=== PATIENT | female | born 1950 | race Caucasian/White ===

== ENCOUNTER 2016-07-13 13:55 | Emergency (ER) | payer MEDICARE, OTHER ==
[2016-07-13] MEDS ORDERED: IPRATROPIUM-ALBUTEROL 3 ML NEB INHALATION STA (14:40)
--- NOTE | 2016-07-13 14:43 | ED ---
General Adult HPI - General Chief complaint: Upper Respiratory Infection Stated complaint: Cough/Sore Throat Time Seen by Provider: 07/13/16 14:26 Source: patient, RN notes reviewed Mode of arrival: ambulatory Limitations: no limitations - History of Present Illness Initial comments: This is a 65-year-old female presents with productive cough, otalgia, shortness of breath 4-5 days. Patient states she has been coughing productive of yellow green/brown sputum. Patient also complains of left-sided otalgia. Patient states she has COPD and her breathing has been worse than baseline over the last few days. Patient denies any fever/chills, nausea/vomiting/diarrhea. Patient has been taking her at home breathing treatments. Patient also complains of congestion and runny nose. Patient states that her lower right side back began hurting last night. Patient states she noticed this while she was laying down. Patient states the pain is constant and nothing makes the pain better or worse. Patient denies any known injury or trigger of this pain. Patient denies any burning with urination. Patient has a history of kidney stones. Patient denies any recent chest pain, abdominal pain, numbness, tingling, hematuria, headache, or visual changes, or any other complaints. - Related Data Home Medications Medication Instructions Recorded Confirmed Albuterol Inhaler [Ventolin Hfa 2 puff INHALATION RT-Q6H PRN 10/06/15 10/06/15 Inhaler] Albuterol Nebulized [Ventolin 2.5 mg INHALATION RT-Q6H PRN 10/06/15 10/06/15 Nebulized] Fluticasone/Salmeterol [Advair 1 puff INHALATION RT-BID 10/06/15 10/06/15 500-50 Diskus] Previous Rx's Medication Instructions Recorded Escitalopram [Lexapro] 10 mg PO DAILY #30 tab 09/19/14 Lisinopril [Zestril] 10 mg PO DAILY #30 tab 09/19/14 traZODone HCL [Desyrel] 50 mg PO HS #30 tab 09/19/14 Levofloxacin [Levaquin] 500 mg PO HS #7 tab 10/07/15 Omeprazole [PriLOSEC] 20 mg PO AC-BID #30 cap 10/07/15 Tiotropium Bland [Spiriva 2 puff IH DAILY #1 mist.inhal 10/07/15 Respimat] Albuterol Inhaler [Ventolin Hfa 1 - 2 puff INHALATION Q6HR #1 07/13/16 Inhaler] inhaler Azithromycin [Zithromax Z-pack] 250 mg PO DIRECTED #6 tab 07/13/16 Fluticasone/Salmeterol [Advair 1 inhalation PO BID 10 Days 07/13/16 250-50 Diskus] Allergies Allergy/AdvReac Type Severity Reaction Status Date / Time codeine AdvReac Unknown Verified 07/13/16 14:09 prednisone AdvReac Rash/Hives Verified 07/13/16 14:09 Review of Systems ROS Statement: Those systems with pertinent positive or pertinent negative responses have been documented in the HPI. ROS Other: All systems not noted in ROS Statement are negative. Past Medical History Past Medical History: COPD, Diabetes Mellitus, Hypertension Additional Past Medical History / Comment(s): bipolar, schizo History of Any Multi-Drug Resistant Organisms: None Reported Past Surgical History: Cholecystectomy, Hysterectomy Additional Past Surgical History / Comment(s): lobectomy-right lung, cataract Past Anesthesia/Blood Transfusion Reactions: No Reported Reaction Past Psychological History: Bipolar, Depression, Schizophrenia Smoking Status: Former smoker Past Alcohol Use History: None Reported Past Drug Use History: None Reported General Exam - General Exam Comments Initial Comments: General: The patient is awake and alert, in no distress, and does not appear acutely ill. Eye: Pupils are equal, round and reactive to light, extra-ocular movements are intact. No nystagmus. There is normal conjunctiva bilaterally. No signs of icterus. Ears: TMs pink and pearly with intact cone of light bilaterally. TMs slightly retracted bilaterally. Normal external ear canals. Nose: Nasal turbinates erythematous and edematous with drainage present bilaterally. Mouth and throat: There are moist mucous membranes and no oral lesions. Neck: The neck is supple, there is no tenderness or JVD. Cardiovascular: There is a regular rate and rhythm. No murmur, rub or gallop is appreciated. Respiratory: Wheezes heard throughout, respirations are non-labored, breath sounds are equal. No stridor, rales, or rhonchi. Gastrointestinal: Soft, non-distended, non-tender abdomen without masses or organomegaly noted. There is no rebound or guarding present. No CVA tenderness. Bowel sounds are unremarkable. Musculoskeletal: There is some mild tenderness to palpation of the right side paraspinal muscles. Normal ROM, Strength 5/5. Sensation intact. Radial pulses equal bilaterally 2+. Neurological: A&O x 3. CN II-XII intact, There are no obvious motor or sensory deficits. Coordination appears grossly intact. Speech is normal. Skin: Skin is warm and dry and no rashes or lesions are noted. Psychiatric: Cooperative, appropriate mood & affect, normal judgment. Limitations: no limitations Course Vital Signs 07/13/16 07/13/16 07/13/16 14:09 15:09 15:14 Temperature 97.5 F L 97.5 F L Pulse Rate 79 69 65 Respiratory 20 16 Rate Blood Pressure 145/69 124/59 O2 Sat by Pulse 94 L 95 Oximetry 07/13/16 07/13/16 15:20 17:00 Temperature 97.9 F Pulse Rate 65 82 Respiratory 16 Rate Blood Pressure 122/58 O2 Sat by Pulse 98 Oximetry Medical Decision Making - Medical Decision Making This is a 65-year-old female presents with cough, shortness of breath and congestion. Patient also complains of back pain. On physical exam lungs have wheezes throughout all lung hunt. Respirations are nonlabored. Nasal turbinates are erythematous and edematous with drainage present bilaterally. There is some mild tenderness with patient of the right side paraspinal muscles. Patient is able to ambulate. Patient is neurologically intact. A chest x-ray was done and reviewed showing: Chronic emphysematous and postsurgical change with bibasilar scarring and/or atelectasis. No suspicious acute infiltrate is identified. No significant change from prior study is seen. Reported by Dr. Roa. Patient was given a DuoNeb treatment in today. A urinalysis is done showing moderate amount of blood in the urine with 7 red blood cells. Patient has a history of kidney stones so a computed tomography scan abdomen and pelvis without contrast was done and reviewed showing: Bilateral large renal cortical cysts. Umbilical hernia. Sigmoid moderate diverticulosis without evidence of diverticulitis. Diaphragmatic calcification on the left side of uncertain significance. This is stable compared to old CT scanning could relate to old aspiration. Mild pulmonary emphysema. Right lower lobe scarring. There is overall no significant change compared to old exam. I do not see a cause for right flank pain. Report reviewed by Dr. Morataya Discussed results with patient. The patient has albuterol treatments for her nebulizer at home. Patient states she had relief of symptoms after breathing treatment in the [facility] today. Discussed with patient that she'll be put on a Z- Cosmo and given a prescription for Advair and albuterol inhaler. Patient states she has been on Advair in the past and had no ALLERGIC reaction to this medication. Patient will also be referred to a primary care doctor today. Discussed the importance of following up with a primary care physician. Discussed rest, ice/warm heating pads to her lower back. Discussed over-the- counter Tylenol and/or Motrin as needed for pain. Discussed return parameters. Discussed that patient should follow up with PCP in one to 2 days or return to the [facility] for any worsening symptoms or for any further concerns. Patient was receptive to this plan and patient will be discharged home. I discussed his case with attending physician Dr. Moya who agrees the plan as stated above. - Lab Data Lab Results 07/13/16 Range/Units 15:10 Urine Color Yellow Urine Appearance Cloudy H (Clear) Urine pH 5.5 (5.0-8.0) Ur Specific [place] 1.018 (1.001-1.035) Urine Protein Negative (Negative) Urine Glucose (UA) Negative (Negative) Urine Ketones Negative (Negative) Urine Blood Moderate H (Negative) Urine Nitrate Negative (Negative) Urine Bilirubin Negative (Negative) Urine Urobilinogen <2.0 (<2.0) mg/dL Ur Leukocyte Esterase Negative (Negative) Urine RBC 7 H (0-5) /hpf Urine WBC <1 (0-5) /hpf Ur Squamous Epith Cells 1 (0-4) /hpf Urine Mucus Rare H (None) /hpf Disposition Clinical Impression: Upper respiratory infection, COPD exacerbation, Low back pain Disposition: HOME SELF-CARE Condition: Good Instructions: Upper Respiratory Infection (ED) Additional Instructions: Please use medication as discussed. Please follow-up with family doctor in the next 2 days of symptoms have not improved. Please return to emergency room if the symptoms increase or worsen or for any other concerns. Prescriptions: Albuterol Inhaler [Ventolin Hfa Inhaler] 1 - 2 puff INHALATION Q6HR #1 inhaler Azithromycin [Zithromax Z-pack] 250 mg PO DIRECTED #6 tab Fluticasone/Salmeterol [Advair 250-50 Diskus] 1 inhalation PO BID 10 Days Referrals: None,Stated [Primary Care Provider] - 1-2 days Devan Francis MD [STAFF PHYSICIAN] - 1-2 days Time of Disposition: 17:23
--- NOTE | 2016-07-13 15:01 | XR ---
EXAMINATION TYPE: XR chest 2V DATE OF EXAM: 07/13/2016 2:55 PM COMPARISON: Prior chest x-ray October 06, 2015. HISTORY: History of partial right-sided pneumonectomy presents with cough and congestion. TECHNIQUE: Frontal and lateral views of the chest are obtained. FINDINGS: Underlying emphysematous change is redemonstrated. Surgical changes right hilar and lower lung level with clips and right basilar scarring are all redemonstrated. There is additional patchy l eft basilar linear scarring and/or atelectasis again seen. There is some right apical fibrosis redemo nstrated. There is no new suspicious focal airspace opacity, pleural effusion, or pneumothorax eviden t bilaterally. The cardiac silhouette size is stable and upper limits of normal. The osseous struc tures are demineralized. Multilevel spurring in the spine is present. Cholecystectomy clips are redem onstrated. IMPRESSION: Chronic emphysematous and postsurgical change with bibasilar scarring and/or atelectasi s. No suspicious acute infiltrate is identified. No significant change from prior study is seen.
[2016-07-13 15:10] VITALS: RESP 16
[2016-07-13 15:25] LABS: Bacteria,Urine Rare /hpf
[2016-07-13 16:45] LABS: Appearance,Urine Cloudy (Clear); Bilirubin,Urine Negative (Negative); Glucose,Urine (UA) Negative (Negative); Ketones,Urine Negative (Negative); Leukocyte Esterase,Urine Negative (Negative); Mucus,Urine Rare /hpf; Nitrite,Urine Negative (Negative); PH, Urine 5.5 (5.0-8.0); Particle Count 4362; Protein,Urine Negative (Negative); RBC,Urine 7 /hpf (0-5); Specific Gravity,Urine 1.018 (1.001-1.035); Squamous Epithelial Cell,Urine 1 /hpf (0-4); UA Billing (MACRO vs. MICRO) MICRO; Urobilinogen,Urine <2.0 mg/dL (<2.0); WBC,Urine <1 /hpf (0-5)
[2016-07-13 17:01] VITALS: BP 122/58; PULSE 82; TEMP 97.9
--- NOTE | 2016-07-13 17:19 | CT ---
EXAMINATION TYPE: CT abdomen pelvis wo con DATE OF EXAM: 07/13/2016 5:08 PM COMPARISON: 05/23/2011 HISTORY: Right sided flank pain with hematuria CT DLP: 1116 mGycm Automated exposure control for dose reduction was used. TECHNIQUE: Helical acquisition of images was performed from the lung bases through the pelvis. FINDINGS: There is mild emphysema in the right lower lobe. There is some fibrotic change in the right lower lob e. There is no pleural effusion. There is calcification of the left diaphragmatic pleura adjacent to the spleen. Heart size is normal. Liver shows no focal defect. There are clips from cholecystectomy. Pancreas appears normal. Spleen ap pears normal. There are bilateral renal cortical cysts. The largest measures 5.5 cm on the left side. There is no adrenal mass. There is no retroperitoneal adenopathy. There is no hydronephrosis. There is a fat-containing umbilical hernia. This measures 5 cm. There is no ascites. Appendix appears karen l. There are a few diverticula in the sigmoid colon. There is no evidence of diverticulitis. There is no evidence of a pelvic mass. Bladder distends smoothly. Bladder is almost empty. The bony structure s appear intact. IMPRESSION: BILATERAL LARGE RENAL CORTICAL CYSTS. UMBILICAL HERNIA. SIGMOID MODERATE DIVERTICULOSIS WITHOUT EVIDE NCE OF DIVERTICULITIS. DIAPHRAGMATIC CALCIFICATION ON THE LEFT SIDE OF UNCERTAIN SIGNIFICANCE. THIS I S STABLE COMPARED TO OLD CT SCAN AND COULD RELATE TO OLD ASPIRATION. MILD PULMONARY EMPHYSEMA. RIGHT LOWER LOBE SCARRING. THERE IS OVERALL NO SIGNIFICANT CHANGE COMPARED TO OLD EXAM. I do not see a cause for right flank pain.
== END 2016-07-13 17:25 | disposition home or self-care (01) ==
LOC: EC 13:55
DX: J06.9 Acute upper respiratory infection, unspecified (principal); J44.1 Chronic obstructive pulmonary disease with (acute) exacerbation; M54.5 Low back pain; I10 Essential (primary) hypertension; E11.9 Type 2 diabetes mellitus without complications; F31.9 Bipolar disorder, unspecified; F32.9 Major depressive disorder, single episode, unspecified; F20.9 Schizophrenia, unspecified; Z88.5 Allergy status to narcotic agent; Z87.442 Personal history of urinary calculi; Z87.891 Personal history of nicotine dependence; Z79.51 Long term (current) use of inhaled steroids; Z79.899 Other long term (current) drug therapy; Z88.8 Allergy status to other drugs, medicaments and biological substances
CPT/HCPCS: 71020; 74176; 81001; 94640; 99284

== ENCOUNTER → 2016-10-29 | Outpatient (CLI) | payer MEDICARE, OTHER ==
--- NOTE | 2016-11-01 09:49 | MM ---
Reason for exam: screening (asymptomatic). Last mammogram was performed 1 year and 11 months ago. History: Patient is postmenopausal. Physical Findings: A clinical breast exam by your physician is recommended on an annual basis and results should be correlated with mammographic findings. MG 3D Screening Mammo W/Cad Bilateral CC and MLO view(s) were taken. Prior study comparison: November 15, 2014, mammogram, performed at [facility]. November 06, 2013, mammogram, performed at [facility]. There are scattered fibroglandular densities. There is no discrete abnormality. No significant changes when compared with prior studies. ASSESSMENT: Negative, BI-RAD 1 RECOMMENDATION: Routine screening mammogram of both breasts in 1 year.
== END | disposition home or self-care (01) ==
LOC: RADMAMWWP 14:44
PROVIDERS: ATTEND Family Medicine
DX: Z12.31 Encounter for screening mammogram for malignant neoplasm of breast (principal)
CPT/HCPCS: 77063; G0202

== ENCOUNTER → 2016-11-01 | Outpatient (CLI) | payer MEDICARE, OTHER ==
--- NOTE | 2016-11-01 09:47 | BD ---
EXAMINATION TYPE: MG DEXA axial skeleton. DATE OF EXAM: 11/01/2016 8:07 AM COMPARISON: NONE CLINICAL HISTORY: Z78.0 Asymptomatic menopausal state Height: 62 IN Weight: 211 LBS FRAX RISK QUESTIONS: Alcohol (3 or more units per day): NO Family History (Parent hip fracture): NO Glucocorticoids (More than 3mos): NO (Ex: prednisone, prednisolone, methylprednisolone, dexamethasone, and hydrocortisone). History of Fracture in Adulthood: NO Secondary Osteoporosis: 1. Type 1 Diabetes: NO 2. Hyperthyroidism: NO 3. Menopause before 45: NO 4. Malnutrition: NO 5. Chronic liver disease: NO Rheumatoid Arthritis: YES SINCE AGE 25 Current Tobacco Use: NO RISK FACTORS HISTORY OF: Family History of Osteoporosis: YES MOTHER Active: YES Diet low in dairy products/other sources of calcium: YES Postmenopausal woman: TOTAL HYST. AGE 51 MEDICATIONS: Additional Medications: ADVAIR DISC, PULMICORT INHALER, EXAM MEASUREMENTS: Bone mineral densitometry was performed using the [employer]. Bone mineral density as measured about the Lumbar spine is: ----- L1-L4(G/cm2): 1.371 T Score Values are as follows: ----- L2: 1.5 ----- L3: 1.9 ----- L4: 1.4 ----- L1-L4: 1.6 Bone mineral density BASELINE Bone mineral density about the R hip (g/cm2): 0.860 Bone mineral density about the L hip (g/cm2): 0.911 T Score values are as follows: -----R Neck: -1.3 -----L Neck: -0.9 -----R Total: 0.1 -----L Total: 0.3 Bone mineral density BASELINE IMPRESSION: No evidence for osteoporosis or osteopenia NOTE: T-SCORE=SD OF THE YOUNG ADULT MEAN.
== END | disposition home or self-care (01) ==
LOC: RADBDWWP 08:06
PROVIDERS: ATTEND Family Medicine
DX: Z12.31 Encounter for screening mammogram for malignant neoplasm of breast (principal); Z78.0 Asymptomatic menopausal state
CPT/HCPCS: 77080

== ENCOUNTER → 2016-12-08 | Outpatient (CLI) | payer MEDICARE, OTHER ==
--- NOTE | 2016-12-08 10:13 | XR ---
EXAMINATION TYPE: XR knee complete LT DATE OF EXAM: 12/08/2016 CLINICAL HISTORY: pain TECHNIQUE: Three views of the left knee are obtained. COMPARISON: None. FINDINGS: There is no acute fracture/dislocation. The tri-compartment joint spaces appear within no rmal limits. The overlying soft tissue appears unremarkable. IMPRESSION: There is no acute fracture or dislocation ICD 10 NO FRACTURE, INITIAL EVALUATION
== END | disposition home or self-care (01) ==
LOC: RADXRMAIN 09:54
PROVIDERS: ATTEND Physician Assistant
DX: M25.562 Pain in left knee (principal)

== ENCOUNTER 2017-01-22 16:52 | Emergency (ER) | payer MEDICARE, OTHER ==
[2017-01-22 17:11] VITALS: BP 164/79; PULSE 102; RESP 18; TEMP 98.1
[2017-01-22] MEDS ORDERED: AMOXIC-POT CLAV 875MG STARTER 2 EACH TABLET PO STA (17:42)
--- NOTE | 2017-01-22 17:45 | ED ---
Animal Bite HPI - General Chief Complaint: Animal Bite Stated Complaint: Dog Bite Time Seen by Provider: 01/22/17 17:21 Source: patient, RN notes reviewed, old records reviewed Mode of arrival: ambulatory Limitations: no limitations - History of Present Illness Initial Comments: 66 that showed FEMALE chief complaint of a dog bite to her right thumb. Patient reports that it was her own dog is up-to-date on vaccinations. She reports that her own tetanus shot is up-to-date. She reports that the laceration seemed to somewhat deep. Denies any difficulty with flexion and extension of her thumb. She denies any peripheral paresthesias.Patient denies any recent fever, chills, shortness of breath, chest pain, back pain, abdominal pain, nausea vomiting, numbness or tingling, dysuria or hematuria, constipation or diarrhea, headaches or visual changes, or any other current symptoms - Related Data Home Medications Medication Instructions Recorded Confirmed Albuterol Inhaler [Ventolin Hfa 1 - 2 puff INHALATION RT-Q6H PRN 01/22/17 Inhaler] Budesonide [Pulmicort Flexhaler] 2 puff INHALATION RT-BID PRN 01/22/17 01/22/17 Fluticasone/Salmeterol [Advair 1 inhalation PO RT-DAILY 01/22/17 01/22/17 250-50 Diskus] Previous Rx's Medication Instructions Recorded Amoxic-Pot Clav 875-125Mg 1 tab PO Q12HR #20 tablet 01/22/17 [Augmentin 875-125] Allergies Allergy/AdvReac Type Severity Reaction Status Date / Time codeine AdvReac Unknown Verified 01/22/17 18:03 prednisone AdvReac Rash/Hives Verified 01/22/17 18:03 Review of Systems ROS Statement: Those systems with pertinent positive or pertinent negative responses have been documented in the HPI. ROS Other: All systems not noted in ROS Statement are negative. Past Medical History Past Medical History: COPD, Diabetes Mellitus, Hypertension Additional Past Medical History / Comment(s): bipolar, schizo History of Any Multi-Drug Resistant Organisms: None Reported Past Surgical History: Cholecystectomy, Hysterectomy Additional Past Surgical History / Comment(s): lobectomy-right lung, cataract Past Anesthesia/Blood Transfusion Reactions: No Reported Reaction Past Psychological History: Bipolar, Depression, Schizophrenia Smoking Status: Former smoker Past Alcohol Use History: None Reported Past Drug Use History: None Reported General Exam - General Exam Comments Initial Comments: Will bring 66-year-old female. No acute distress. Limitations: no limitations Course Vital Signs 01/22/17 17:08 Temperature 98.1 F Pulse Rate 102 H Respiratory 18 Rate Blood Pressure 164/79 O2 Sat by Pulse 94 L Oximetry Procedures - Laceration Laceration #1 Indication: laceration Site: hand Size (cm): 3 Description: linear Depth: simple, single layer Anesthetic Used: lidocaine 1% Anesthesia Technique: local infiltration Amount (mls): 3 Pre-repair: wound explored, irrigated extensively Type of Sutures: nylon Size of Sutures: 5-0 Number of Sutures: 3 Technique: simple, interrupted Patient Tolerated Procedure: well, no complications Medical Decision Making - Medical Decision Making 66 that showed FEMALE chief complaint of a dog bite to her right thumb. Patient reports that it was her own dog is up-to-date on vaccinations. She reports that her own tetanus shot is up-to-date. She reports that the laceration seemed to somewhat deep. Denies any difficulty with flexion and extension of her thumb. She denies any peripheral paresthesias. Patient has full range of motion of the thumb. 2+ radial pulse. Good capillary refill. Patient wound was significantly deep and open measuring 3 cm. I did close it with approximately 3 sutures and thoroughly irrigated prior to doing so. Patient was started on Augmentin and given a starter pack. Patient understands to monitor for any signs of infection to return to the emergency department if that does occur. Patient understands history plan will comply. Return parameters were discussed. Disposition Clinical Impression: Laceration of thumb, right, Dog bite Disposition: HOME SELF-CARE Condition: Good Instructions: Animal Bite (ED) Additional Instructions: Please return to the emergency room in 8-10 days to have sutures removed. Please leave wound covered for the first 24-48 hours and then leave open to air after that time. Please use clean soap and water to clean the suture area to prevent scabbing over the top of your sutures. Please watch for any signs of infection which may include but not limited to increased pain, swelling, redness , fever or chills. Please return to the emergency room if any signs of infection do occur. Please return to the emergency room for any other concerns or complications. Patient is a complete antibiotic prescription. Prescriptions: Amoxic-Pot Clav 875-125Mg [Augmentin 875-125] 1 tab PO Q12HR #20 tablet Referrals: Blas Phelps MD [Primary Care Provider] - 1-2 days Time of Disposition: 18:25
== END 2017-01-22 19:17 | disposition home or self-care (01) ==
LOC: EC 16:52
DX: S61.011A Laceration without foreign body of right thumb without damage to nail, initial encounter (principal); S61.051A Open bite of right thumb without damage to nail, initial encounter; J44.9 Chronic obstructive pulmonary disease, unspecified; Z87.891 Personal history of nicotine dependence; Z79.51 Long term (current) use of inhaled steroids; Z88.5 Allergy status to narcotic agent; Z88.8 Allergy status to other drugs, medicaments and biological substances; W54.0XXA Bitten by dog, initial encounter
CPT/HCPCS: 12002; 99283

== ENCOUNTER 2017-04-12 23:10 | Emergency (ER) | payer MEDICARE, OTHER ==
[2017-04-12] MEDS ORDERED: SODIUM CHLORIDE 0.9% 1,000 ML IV STA (23:20)
[2017-04-12] MEDS ORDERED: IPRATROPIUM 0.5 MG/2.5 ML NEBU INHALATION STA (23:20)
[2017-04-12] MEDS ORDERED: ALBUTEROL NEBULIZED 2.5 MG/3 ML INHALATION STA (23:20)
--- NOTE | 2017-04-12 23:43 | ED ---
General Adult HPI - General Chief complaint: Shortness of Breath Stated complaint: FAZAL Time Seen by Provider: 04/12/17 23:19 Source: patient, RN notes reviewed, old records reviewed Mode of arrival: wheelchair Limitations: no limitations - History of Present Illness Initial comments: This is a 66-year-old female into the ER for cough congestion and shortness of breath. Patient has history of asthma and COPD. No chest pain. No fevers. No nausea vomiting. No abdominal pain. Patient has been taking no medications at home for improvement. Does not smoke any longer. She did denies fevers. No recent travel history or sick contacts. Patient has not been hospitalized for breathing issues for greater than 3 years - Related Data Home Medications Medication Instructions Recorded Confirmed Albuterol Inhaler [Ventolin Hfa 1 - 2 puff INHALATION RT-Q6H PRN 01/22/17 Inhaler] Budesonide [Pulmicort Flexhaler] 2 puff INHALATION RT-BID PRN 01/22/17 01/22/17 Fluticasone/Salmeterol [Advair 1 inhalation PO RT-DAILY 01/22/17 01/22/17 250-50 Diskus] Previous Rx's Medication Instructions Recorded Amoxic-Pot Clav 875-125Mg 1 tab PO Q12HR #20 tablet 01/22/17 [Augmentin 875-125] Albuterol Inhaler [Ventolin Hfa 1 - 2 puff INHALATION Q6HR #1 04/13/17 Inhaler] inhaler Azithromycin [Zithromax Z-pack] 0 mg PO DIRECTED #1 pack 04/13/17 Allergies Allergy/AdvReac Type Severity Reaction Status Date / Time codeine AdvReac Unknown Verified 04/12/17 23:16 prednisone AdvReac Rash/Hives Verified 04/12/17 23:16 Review of Systems ROS Statement: Those systems with pertinent positive or pertinent negative responses have been documented in the HPI. ROS Other: All systems not noted in ROS Statement are negative. Past Medical History Past Medical History: COPD, Diabetes Mellitus, Hypertension Additional Past Medical History / Comment(s): bipolar, schizo History of Any Multi-Drug Resistant Organisms: None Reported Past Surgical History: Cholecystectomy, Hysterectomy Additional Past Surgical History / Comment(s): lobectomy-right lung, cataract Past Anesthesia/Blood Transfusion Reactions: No Reported Reaction Past Psychological History: Bipolar, Depression, Schizophrenia Smoking Status: Former smoker Past Alcohol Use History: None Reported Past Drug Use History: None Reported General Exam Limitations: no limitations General appearance: alert, in no apparent distress Head exam: Present: atraumatic, normocephalic, normal inspection Eye exam: Present: normal appearance, PERRL, EOMI. Absent: scleral icterus, conjunctival injection, periorbital swelling ENT exam: Present: normal exam, mucous membranes moist Neck exam: Present: normal inspection. Absent: tenderness, meningismus, lymphadenopathy Respiratory exam: Present: normal lung sounds bilaterally, wheezes, decreased breath sounds, prolonged expiratory. Absent: respiratory distress, rales, rhonchi, stridor Cardiovascular Exam: Present: regular rate, normal rhythm, normal heart sounds. Absent: systolic murmur, diastolic murmur, rubs, gallop, clicks GI/Abdominal exam: Present: soft, normal bowel sounds. Absent: distended, tenderness, guarding, rebound, rigid Extremities exam: Present: normal inspection, full ROM, normal capillary refill. Absent: tenderness, pedal edema, joint swelling, calf tenderness Back exam: Present: normal inspection Neurological exam: Present: alert, oriented X3, CN II-XII intact Psychiatric exam: Present: normal affect, normal mood Skin exam: Present: warm, dry, intact, normal color. Absent: rash Course Vital Signs 04/12/17 04/12/17 04/12/17 23:14 23:41 23:45 Temperature 96.9 F L Pulse Rate 85 69 66 Respiratory 22 18 Rate Blood Pressure 189/79 140/63 O2 Sat by Pulse 98 100 Oximetry 04/12/17 04/12/17 04/13/17 23:48 23:54 00:12 Temperature Pulse Rate 70 79 79 Respiratory Rate Blood Pressure O2 Sat by Pulse Oximetry 04/13/17 01:07 Temperature 97.1 F L Pulse Rate 97 Respiratory 18 Rate Blood Pressure 135/58 O2 Sat by Pulse 99 Oximetry - Reevaluation(s) Reevaluation #1: Patient states her symptoms are improved to the point of being resolved, would like to be discharged home EKG Findings - EKG Comments: EKG Findings:: EKG shows normal sinus rhythm rate of 70, MT 132, QRS 84, QTc 442 Medical Decision Making - Medical Decision Making 66 seen in the ER for reevaluation of significant shortness of breath. Patient' s symptoms are improved here in the emergency room. We'll treat with at home medications. Patient states she feels better feels good for discharge. Patient is in no acute distress - Lab Data Result diagrams: 04/12/17 23:45 04/12/17 23:45 Lab Results 04/12/17 04/12/17 04/12/17 Range/Units 23:45 23:45 23:45 WBC 9.1 (3.8-10.6) k/uL RBC 4.85 (3.80-5.40) m/uL Hgb 14.3 (11.4-16.0) gm/dL Hct 45.9 (34.0-46.0) % MCV 94.6 (80.0-100.0) fL MCH 29.5 (25.0-35.0) pg MCHC 31.2 (31.0-37.0) g/dL RDW 14.2 (11.5-15.5) % Plt Count 219 (150-450) k/uL Neutrophils % 48 % Lymphocytes % 38 % Monocytes % 6 % Eosinophils % 6 % Basophils % 1 % Neutrophils # 4.3 (1.3-7.7) k/uL Lymphocytes # 3.5 (1.0-4.8) k/uL Monocytes # 0.5 (0-1.0) k/uL Eosinophils # 0.5 (0-0.7) k/uL Basophils # 0.1 (0-0.2) k/uL PT (9.0-12.0) sec INR (<1.2) APTT (22.0-30.0) sec Sodium 138 (137-145) mmol/L Potassium 4.5 (3.5-5.1) mmol/L Chloride 106 (98-107) mmol/L Carbon Dioxide 22 (22-30) mmol/L Anion Gap 10 mmol/L BUN 21 H (7-17) mg/dL Creatinine 0.70 (0.52-1.04) mg/dL Est GFR (MDRD) Af Amer >60 (>60 ml/min/1.73 sqM) Est GFR (MDRD) Non-Af >60 (>60 ml/min/1.73 sqM) Glucose 94 (74-99) mg/dL Calcium 9.1 (8.4-10.2) mg/dL Magnesium 2.0 (1.6-2.3) mg/dL Total Bilirubin 0.3 (0.2-1.3) mg/dL AST 26 (14-36) U/L ALT 46 (9-52) U/L Alkaline Phosphatase 75 (38-126) U/L Total Creatine Kinase 71 (30-135) U/L CK-MB (CK-2) 1.3 (0.0-2.4) ng/mL CK-MB (CK-2) Rel Index 1.8 Troponin I <0.012 (0.000-0.034) ng/mL NT-Pro-B Natriuret Pep pg/mL Total Protein 7.2 (6.3-8.2) g/dL Albumin 3.8 (3.5-5.0) g/dL 04/12/17 04/12/17 Range/Units 23:45 23:45 WBC (3.8-10.6) k/uL RBC (3.80-5.40) m/uL Hgb (11.4-16.0) gm/dL Hct (34.0-46.0) % MCV (80.0-100.0) fL MCH (25.0-35.0) pg MCHC (31.0-37.0) g/dL RDW (11.5-15.5) % Plt Count (150-450) k/uL Neutrophils % % Lymphocytes % % Monocytes % % Eosinophils % % Basophils % % Neutrophils # (1.3-7.7) k/uL Lymphocytes # (1.0-4.8) k/uL Monocytes # (0-1.0) k/uL Eosinophils # (0-0.7) k/uL Basophils # (0-0.2) k/uL PT 10.0 (9.0-12.0) sec INR 1.0 (<1.2) APTT 24.3 (22.0-30.0) sec Sodium (137-145) mmol/L Potassium (3.5-5.1) mmol/L Chloride (98-107) mmol/L Carbon Dioxide (22-30) mmol/L Anion Gap mmol/L BUN (7-17) mg/dL Creatinine (0.52-1.04) mg/dL Est GFR (MDRD) Af Amer (>60 ml/min/1.73 sqM) Est GFR (MDRD) Non-Af (>60 ml/min/1.73 sqM) Glucose (74-99) mg/dL Calcium (8.4-10.2) mg/dL Magnesium (1.6-2.3) mg/dL Total Bilirubin (0.2-1.3) mg/dL AST (14-36) U/L ALT (9-52) U/L Alkaline Phosphatase (38-126) U/L Total Creatine Kinase (30-135) U/L CK-MB (CK-2) (0.0-2.4) ng/mL CK-MB (CK-2) Rel Index Troponin I (0.000-0.034) ng/mL NT-Pro-B Natriuret Pep 76 pg/mL Total Protein (6.3-8.2) g/dL Albumin (3.5-5.0) g/dL - Radiology Data Radiology results: report reviewed (Chest x-ray is negative for acute disease), image reviewed Disposition Clinical Impression: COPD exacerbation, Acute exacerbation of chronic obstructive airways disease Disposition: HOME SELF-CARE Condition: Good Instructions: Acute Bronchitis (ED), Chronic Bronchitis (ED) Prescriptions: Albuterol Inhaler [Ventolin Hfa Inhaler] 1 - 2 puff INHALATION Q6HR #1 inhaler Azithromycin [Zithromax Z-pack] 0 mg PO DIRECTED #1 pack Referrals: Blas Phelps MD [Primary Care Provider] - 1-2 days
[2017-04-12 23:46] VITALS: RESP 18
[2017-04-12 23:54] LABS: Basophils # (A) 0.1 k/uL (0-0.2); Basophils % (A) 1 %; CH 30.7; CHCM 32.7; Eosinophils # (A) 0.5 k/uL (0-0.7); Eosinophils % (A) 6 %; HCT 45.9 % (34.0-46.0); HGB 14.3 gm/dL (11.4-16.0); Luc # (Auto) 0.15; Luc % (Auto) 2; Lymphocytes # (A) 3.5 k/uL (1.0-4.8); Lymphocytes % (A) 38 %; MCH 29.5 pg (25.0-35.0); MCHC 31.2 g/dL (31.0-37.0); MCV 94.6 fL (80.0-100.0); Mean Platelet Volume 7.2; Monocytes # (A) 0.5 k/uL (0-1.0); Monocytes % (A) 6 %; Neutrophils # (A) 4.3 k/uL (1.3-7.7); Neutrophils % (A) 48 %; RBC 4.85 m/uL (3.80-5.40); RDW 14.2 % (11.5-15.5); WBC 9.1 k/uL (3.8-10.6); WBC (Perox) 9.05
[2017-04-13 00:07] LABS: Partial Thromboplastin Time 24.3 sec (22.0-30.0)
[2017-04-13 00:08] LABS: ALT 46 U/L (9-52); AST 26 U/L (14-36); Alkaline Phosphatase 75 U/L (38-126); Anion Gap 10 mmol/L; Blood Urea Nitrogen 21 mg/dL (7-17); Calcium 9.1 mg/dL (8.4-10.2); Carbon Dioxide 22 mmol/L (22-30); Chloride 106 mmol/L (98-107); Glucose 94 mg/dL (74-99); Non-African American GFR(MDRD) >60 (>60 ml/min/1.73 sqM); Potassium 4.5 mmol/L (3.5-5.1); Sodium 138 mmol/L (137-145); Total Bilirubin 0.3 mg/dL (0.2-1.3); Total Protein 7.2 g/dL (6.3-8.2)
[2017-04-13 00:15] LABS: Creatine Kinase 71 U/L (30-135)
[2017-04-13 00:28] LABS: Creatine Kinase MB 1.3 ng/mL (0.0-2.4); Troponin I <0.012 ng/mL (0.000-0.034)
--- NOTE | 2017-04-13 00:41 | XR ---
EXAMINATION TYPE: XR chest 2V DATE OF EXAM: 04/13/2017 COMPARISON: 07/13/2016 HISTORY: Difficulty breathing TECHNIQUE: Frontal and lateral views of the chest are obtained. FINDINGS: There is patchy linear density at the right lung base. Heart and mediastinum are shifted s lightly to the right side. There is some coarsening of interstitial pulmonary markings. There are donte st leads. There is no heart failure. Bony thorax is intact. There is a poorly defined 2 cm area of in creased density over the left lung base on the frontal view. IMPRESSION: There is some pleural reaction and atelectasis at the right lung base that is slightly w orse than last exam. No heart failure. Normal heart. 2 cm area of increased density at the left lung base apparently is calcified pleural plaque.
[2017-04-13 01:08] VITALS: BP 135/58; PULSE 97; TEMP 97.1
[2017-04-13] MEDS ORDERED: AZITHROMYCIN 500 MG TAB PO STA (01:16)
== END 2017-04-13 01:27 | disposition home or self-care (01) ==
LOC: EC 23:10
DX: J44.1 Chronic obstructive pulmonary disease with (acute) exacerbation (principal); Z87.891 Personal history of nicotine dependence; Z79.51 Long term (current) use of inhaled steroids; Z88.5 Allergy status to narcotic agent; Z88.8 Allergy status to other drugs, medicaments and biological substances
CPT/HCPCS: 36415; 71020; 80053; 82550; 82553; 83735; 83880; 84484; 85025; 85610; 85730; 93005; 94640; 96360; 96361; 99285

== ENCOUNTER 2018-09-02 10:03 | Emergency (ER) | payer MEDICARE, OTHER ==
[2018-09-02 10:09] VITALS: BP 153/82; PULSE 79; RESP 18; TEMP 98.2
[2018-09-02] MEDS ORDERED: KETOROLAC 60 MG/2 ML VIAL IM STA (11:11)
[2018-09-02] MEDS ORDERED: MORPHINE SULFATE 4 MG/ML SYRINGE IM STA (11:11)
--- NOTE | 2018-09-02 11:43 | XR ---
EXAMINATION TYPE: XR Hip LT and AP Pelvis DATE OF EXAM: 09/02/2018 COMPARISON: CT abdomen and pelvis July 13, 2016 HISTORY: Chronic left hip pain TECHNIQUE: A single AP view of the pelvis is obtained. Two views of the left hip are obtained. FINDINGS: There is no acute fracture/dislocation evident in the pelvis. The sacroiliac joints appea r symmetric and unremarkable. Mild axial joint space loss in both hips is redemonstrated. Right-side d pelvic phleboliths noted. Two views of left hip show no acute fracture or dislocation. No focal lytic or sclerotic lesion seen in the proximal left femur. Some spurring from greater trochanters bilaterally is present. The over lying soft tissue is unremarkable. IMPRESSION: There is no acute fracture or dislocation in the pelvis or left hip. No significant landry ge from 2017 CT.
--- NOTE | 2018-09-02 11:56 | ED ---
Lower Extremity Injury HPI - General Chief Complaint: Extremity Injury, Lower Stated Complaint: LEFT LEG AND HIP PAIN Time Seen by Provider: 09/02/18 10:37 Source: patient, RN notes reviewed, old records reviewed Mode of arrival: ambulatory Limitations: no limitations - History of Present Illness Initial Comments: Patient is a 67 year old female whom presents to ED today for complaints of left hip pain with ambulation when she wakes up. She reports that she had severe pain and her leg buckled on her. Patient reports that she has been having pain for the past few weeks. She denies fall or trauma. - Related Data Home Medications Medication Instructions Recorded Confirmed Albuterol Inhaler [Ventolin Hfa 1 - 2 puff INHALATION RT-Q6H PRN 01/22/17 Inhaler] Budesonide [Pulmicort Flexhaler] 2 puff INHALATION RT-BID PRN 01/22/17 09/02/18 Fluticasone/Salmeterol [Advair 1 puff INHALATION RT-DAILY 01/22/17 09/02/18 250-50 Diskus] Albuterol Nebulized [Ventolin 2.5 mg INHALATION RT-Q6H PRN 09/02/18 09/02/18 Nebulized] FLUoxetine HCL [PROzac] 20 mg PO HS 09/02/18 09/02/18 Lisinopril [Zestril] 5 mg PO DAILY 09/02/18 09/02/18 Previous Rx's Medication Instructions Recorded Cyclobenzaprine [Flexeril] 10 mg PO TID #15 tab 09/02/18 Ibuprofen 600 mg PO TID #20 tablet 09/02/18 traMADol HCl [Ultram] 50 mg PO Q4HR PRN 3 Days #12 tab 09/02/18 Allergies Allergy/AdvReac Type Severity Reaction Status Date / Time prednisone Allergy Rash/Hives Verified 09/02/18 10:35 codeine AdvReac Unknown Verified 09/02/18 10:35 Review of Systems ROS Statement: Those systems with pertinent positive or pertinent negative responses have been documented in the HPI. ROS Other: All systems not noted in ROS Statement are negative. Constitutional: Denies: fever Eyes: Denies: eye pain ENT: Denies: ear pain Respiratory: Denies: cough, dyspnea Cardiovascular: Denies: as per HPI, chest pain Endocrine: Reports: fatigue Gastrointestinal: Denies: abdominal pain Genitourinary: Denies: urgency, dysuria Musculoskeletal: Denies: back pain, other (saddle anesthesia) Neurological: Denies: headache Hematological/Lymphatic: Denies: easy bleeding Past Medical History Past Medical History: COPD, Diabetes Mellitus, Hypertension Additional Past Medical History / Comment(s): bipolar, schizo History of Any Multi-Drug Resistant Organisms: None Reported Past Surgical History: Cholecystectomy, Hysterectomy Additional Past Surgical History / Comment(s): lobectomy-right lung, cataract Past Anesthesia/Blood Transfusion Reactions: No Reported Reaction Past Psychological History: Bipolar, Depression, Schizophrenia Smoking Status: Former smoker Past Alcohol Use History: None Reported Past Drug Use History: None Reported General Exam - General Exam Comments Initial Comments: Well appearing 67 year old female, no distress. Limitations: no limitations General appearance: alert, in no apparent distress Head exam: Present: atraumatic, normocephalic, normal inspection Eye exam: Present: normal appearance, PERRL, EOMI. Absent: scleral icterus, conjunctival injection, periorbital swelling ENT exam: Present: normal exam, mucous membranes moist Neck exam: Present: normal inspection. Absent: tenderness, meningismus, lymphadenopathy Respiratory exam: Present: normal lung sounds bilaterally. Absent: respiratory distress, wheezes, rales, rhonchi, stridor Cardiovascular Exam: Present: regular rate, normal rhythm, normal heart sounds. Absent: systolic murmur, diastolic murmur, rubs, gallop, clicks GI/Abdominal exam: Present: soft, normal bowel sounds. Absent: distended, tenderness, guarding, rebound, rigid Extremities exam: Present: normal inspection, full ROM, normal capillary refill. Absent: tenderness, pedal edema, joint swelling, calf tenderness Left Hip exam: Present: tenderness (over greater trochanter and IT band) Upper Leg exam: Present: normal inspection, full ROM Knee exam: Present: normal inspection Ankle exam: Present: normal inspection Back exam: Present: normal inspection Neurological exam: Present: alert, oriented X3, CN II-XII intact Psychiatric exam: Present: normal affect, normal mood Skin exam: Present: warm, dry, intact, normal color. Absent: rash Course Vital Signs 09/02/18 10:06 Temperature 98.2 F Pulse Rate 79 Respiratory 18 Rate Blood Pressure 153/82 O2 Sat by Pulse 95 Oximetry Medical Decision Making - Medical Decision Making 67 year old female with L hip pain with ambulation. She has severe pain today, but has had worsening pain over 2 weeks. Patient has pain over greatert rochanter and IT band. Patient will be given IM pain medications. Xray shows normal pelvic and hip joint. Discussed close follow up with PCP and ortho. Return parameters discussed. - Radiology Data Radiology results: report reviewed No acute fracture dislocation of the left hip or pelvis. No changes from 2017 CT. Disposition Clinical Impression: Left hip pain Disposition: HOME SELF-CARE Condition: Good Instructions (If sedation given, give patient instructions): Hip Sprain (ED) Additional Instructions: Patient is advised to follow-up labor relations specialist. Return to the emergency department if any alarming signs or symptoms occur. Patient should use the medication as prescribed. Prescriptions: Cyclobenzaprine [Flexeril] 10 mg PO TID #15 tab Ibuprofen 600 mg PO TID #20 tablet traMADol HCl [Ultram] 50 mg PO Q4HR PRN 3 Days #12 tab PRN Reason: Pain Is patient prescribed a controlled substance at d/c from ED?: Yes When asked, does pt state using other controlled substances?: No If prescribed controlled substance>3 days was MAPS reviewed?: Prescribed <3 Days If opioid is for acute pain is fill amount 7 days or less?: Yes If Rx opioid, was Start Talking consent form obtained?: Yes Referrals: [facility] [Primary Care Provider] - 1-2 days Randall Han PAC [PHYSICIAN SCIENTIFIC LABORATORY SUPERVISOR] - 1-2 days Time of Disposition: 12:17
== END 2018-09-02 12:37 | disposition home or self-care (01) ==
LOC: EC 10:03
DX: M25.552 Pain in left hip (principal); J44.9 Chronic obstructive pulmonary disease, unspecified; I10 Essential (primary) hypertension; F32.9 Major depressive disorder, single episode, unspecified; Z87.891 Personal history of nicotine dependence; Z79.51 Long term (current) use of inhaled steroids; Z79.899 Other long term (current) drug therapy; Z88.8 Allergy status to other drugs, medicaments and biological substances; Z88.5 Allergy status to narcotic agent; Z53.20 Procedure and treatment not carried out because of patient's decision for unspecified reasons
CPT/HCPCS: 73502; 99284; 96372; J1885

== ENCOUNTER → 2019-03-30 | Outpatient (CLI) | payer MEDICARE, OTHER ==
--- NOTE | 2019-03-30 13:51 | XR ---
EXAMINATION TYPE: XR cervical spine comp DATE OF EXAM: 03/30/2019 COMPARISON: None HISTORY: Chronic pain right side of head and TECHNIQUE: Five-view cervical spine FINDINGS: Facet degenerative changes are present throughout the cervical spine. There is some mild to moderate foraminal narrowing present C4-5 on the left C3-4 on the right. The prevertebral space is n ormal. Disc heights appear preserved. Vertebral body heights are preserved. Small anterior vertebral body spurs are present within the mid cervical spine. Posterior spinal lamellar line is intact. The o dontoid is limited due to overlying occiput. IMPRESSION: 1. Moderately advanced degenerative changes cervical spine
== END ==
LOC: RADUSWWP 11:43
PROVIDERS: ATTEND Nurse Practitioner
DX: M47.812 Spondylosis without myelopathy or radiculopathy, cervical region (principal)
CPT/HCPCS: 72050

== ENCOUNTER → 2019-04-21 | Outpatient (CLI) | payer MEDICARE, OTHER ==
[2019-04-21 12:04] LABS: Basophils # (A) 0.1 k/uL (0-0.2); Basophils % (A) 1 %; Eosinophils # (A) 0.2 k/uL (0-0.7); Eosinophils % (A) 2 %; HGB 14.9 gm/dL (11.4-16.0); Lymphocytes # (A) 2.1 k/uL (1.0-4.8); Lymphocytes % (A) 31 %; MCH 29.9 pg (25.0-35.0); MCHC 32.3 g/dL (31.0-37.0); MCV 92.6 fL (80.0-100.0); Mean Platelet Volume 5.5; Monocytes # (A) 0.4 k/uL (0-1.0); Monocytes % (A) 5 %; Neutrophils # (A) 4.1 k/uL (1.3-7.7); Neutrophils % (A) 59 %; Platelet Count 246 k/uL (150-450); RBC 4.97 m/uL (3.80-5.40)
[2019-04-21 12:33] LABS: Appearance,Urine Clear (Clear); Bilirubin,Urine Negative (Negative); Blood,Urine Moderate (Negative); Color,Urine Yellow; Glucose,Urine (UA) Negative (Negative); Ketones,Urine Negative (Negative); Leukocyte Esterase,Urine Negative (Negative); Mucus,Urine Rare /hpf; Nitrite,Urine Negative (Negative); PH, Urine 5.5 (5.0-8.0); Protein,Urine Negative (Negative); RBC,Urine 9 /hpf (0-5); Squamous Epithelial Cell,Urine 3 /hpf (0-4); Urobilinogen,Urine <2.0 mg/dL (<2.0); WBC,Urine <1 /hpf (0-5)
--- NOTE | 2019-04-21 14:22 | XR ---
EXAMINATION TYPE: XR chest 2V DATE OF EXAM: 04/21/2019 COMPARISON: 04/13/2017 HISTORY: Cough and wheezing TECHNIQUE: Frontal and lateral views of the chest are obtained. FINDINGS: There is some linear density at the lung bases. There is slight blunting right costophreni c angle. There is no heart failure. There are no hilar masses. Heart size is normal. Bony thorax is i ntact. IMPRESSION: There is some pleural diaphragmatic scarring and atelectasis at the right lung base unch anged. Normal heart.
[2019-04-21 14:41] LABS: Erythrocyte Sedimentation Rate 50 mm/hr (0-20)
[2019-04-21 22:58] LABS: Vitamin D 25 Hydroxy 22.1 ng/mL (30.0-100.0)
[2019-04-21 23:01] LABS: African American GFR (CKD) 87.8 (60.0-200.0); Albumin 4.2 g/dL (3.80-4.90); Albumin/Globulin Ratio 1.62 (1.60-3.17); Anion Gap 6.2 mmol/L (4.00-12.00); BUN/Creat Ratio 23.75 Ratio (12.00-20.00); C Reactive Protein 0.6 mg/dL (0.0-0.8); Calcium 9.3 mg/dL (8.7-10.3); Carbon Dioxide 29.8 mmol/L (21.6-31.8); Chol/HDL Ratio 5.34; Globulin 2.6 g/dL (1.6-3.3); LDL Cholesterol,Calculated 142.2 mg/dL (0.0-131.0); Non-African American GFR(CKD) 75.8 (60.0-200.0); Phosphorus 4.1 mg/dL (2.4-5.1); Potassium 4.5 mmol/L (3.5-5.5); Total Bilirubin 0.5 mg/dL (0.3-1.2); Total Protein 6.8 g/dL (6.2-8.2); Uric Acid 6.7 mg/dL (2.9-7.7); VLDL Calculation 35.8 mg/dL (5.00-40.00)
[2019-04-21 23:08] LABS: T4, Free (Free Thyroxine) 0.9 ng/dL (0.80-1.80)
[2019-04-21 23:14] LABS: Hemoglobin A1C 6.2 % (4.0-6.0)
[2019-04-21 23:22] LABS: Hepatitis A Antibody IgM Non-Reactive (Non-Reactive); Hepatitis B Core IgM Non-Reactive (Non-Reactive); Hepatitis B Surface Antigen Non-Reactive (Non-Reactive); Hepatitis C IgG Antibody Non-Reactive (Non-Reactive)
[2019-04-21 23:35] LABS: Microalbumin Creatinine Ratio <30 mg/g Creat (0-30); Urine Creatinine 112.4 mg/dL
== END | disposition home or self-care (01) ==
LOC: LABWHC1 11:24
PROVIDERS: ATTEND Internal Medicine
DX: J98.4 Other disorders of lung (principal); J98.11 Atelectasis; J40 Bronchitis, not specified as acute or chronic; J44.9 Chronic obstructive pulmonary disease, unspecified; D64.9 Anemia, unspecified; I10 Essential (primary) hypertension; E87.8 Other disorders of electrolyte and fluid balance, not elsewhere classified; M10.9 Gout, unspecified; E78.5 Hyperlipidemia, unspecified; E11.65 Type 2 diabetes mellitus with hyperglycemia; E66.9 Obesity, unspecified; M19.90 Unspecified osteoarthritis, unspecified site; E55.9 Vitamin D deficiency, unspecified; Z11.59 Encounter for screening for other viral diseases; Z90.2 Acquired absence of lung [part of]
CPT/HCPCS: 36415; 71046; 80053; 80061; 80074; 81001; 82043; 82306; 82550; 82570; 83036; 83735; 84100; 84439; 84443; 84550; 85025; 85652; 86140

== ENCOUNTER → 2019-05-07 | Outpatient (CLI) | payer MEDICARE, OTHER ==
--- NOTE | 2019-05-07 16:00 | CT ---
EXAMINATION TYPE: CT abdomen pelvis w con DATE OF EXAM: 05/07/2019 COMPARISON: 07/13/2016 HISTORY: 68-year-old female Hematuria, Hernias TECHNIQUE: Contiguous axial scanning of the abdomen and pelvis following administration of 100 ml Iso ade 300 IV contrast. Delayed images through the kidneys and coronal/sagittal reconstructions perform ed. CT DLP: 1887.1 mGycm Automated exposure control for dose reduction was used. FINDINGS: Heart normal size without pericardial effusion. Pleural-based thickening and calcification along the left hemidiaphragm is unchanged. Right basilar bronchiectasis and volume loss is unchanged. Metallic clip posteromedial right base along the pleural margin is unchanged. No focal liver lesion. Patient is status post cholecystectomy with mild prominence of the bile duct m easuring 1.4 cm versus 1.2 cm, previously. Normal distal tapering is seen. This can be correlated wit h alkaline phosphatase and bili levels. Portal venous system is patent. Ventral midline omental fat-containing epigastric hernia with the abdominal wall defect measuring 2.0 cm wide and the herniating fat measuring 7.2 cm wide versus 6.3 cm wide, previously. Adrenal glands, spleen, and pancreas appear within normal limits. Renal cysts measuring up to 7.0 cm on the left and 4.3 cm on the right. Additional subcentimeter hypo densities are present on both sides, too small for accurate CT characterization, likely additional ti ny cortical cysts. Prominent left periaortic retroperitoneal lymph nodes measuring up to 7 mm versus 6 mm on 07/13/2016, not significantly changed, likely reactive/post inflammatory. Otherwise, no mesenteric or retroperito ramón lymphadenopathy. There is a moderate-sized omental fat-containing umbilical hernia measuring 8.9 cm wide versus 8.0 cm wide, previously. No dilated small bowel, free fluid, or free air. Moderate stool burden. Oral contrast progressed into the ascending colon. Left-sided colonic diverticulosis, greatest in the sigmoid colon. No pericoloni c inflammatory change. Bladder is urine distended. Uterus surgically absent. No abnormal fluid collection in the pelvis or p elvic lymphadenopathy. Bones: Mild degenerative changes of the hips. Degenerative disc disease and facet arthropathy lower l umbar spine. IMPRESSION: 1. BILE DUCT IS MILDLY DILATED AT 1.4 CM VERSUS 1.2 CM, PREVIOUSLY. HOWEVER, NORMAL DISTAL TAPERING I S SEEN. PROBABLY CHRONIC POSTCHOLECYSTECTOMY CHANGE. THIS CAN BE CONFIRMED WITH ALKALINE PHOSPHATASE AND BILIRUBIN LEVELS. 2. MODERATE SIZED OMENTAL FAT-CONTAINING UMBILICAL HERNIA MEASURING 8.9 CM (VERSUS 8.0 CM WIDE, PREVI OUSLY). ADDITIONAL MODERATE SIZED VENTRAL EPIGASTRIC ABDOMINAL WALL HERNIA ALSO CONTAINING FAT (7.2 C M WIDE VERSUS 6.3 CM WIDE, PREVIOUSLY). 3. LEFT-SIDED CLONIC DIVERTICULOSIS, EXTENSIVE IN THE SIGMOID COLON. NO ACUTE DIVERTICULITIS SEEN. 4. BILATERAL RENAL CYSTS MEASURING UP TO 7 CM. THE LARGEST APPEAR SIMPLE AND BENIGN. NUMEROUS SUBCENT IMETER LESIONS ARE TOO SMALL FOR ACCURATE CT CHARACTERIZATION AND ARE ALSO LIKELY BENIGN.
== END | disposition home or self-care (01) ==
LOC: RADCTMAIN 12:06
PROVIDERS: ATTEND Internal Medicine
DX: K57.30 Diverticulosis of large intestine without perforation or abscess without bleeding (principal); N28.1 Cyst of kidney, acquired; R31.9 Hematuria, unspecified; R10.9 Unspecified abdominal pain; Z88.5 Allergy status to narcotic agent; Z88.8 Allergy status to other drugs, medicaments and biological substances
CPT/HCPCS: 82565; 84520; 74177; 36415; Q9967 ×2

== ENCOUNTER → 2019-06-13 | Outpatient (CLI) | payer MEDICARE, OTHER ==
--- NOTE | 2019-06-15 11:14 | MM ---
Reason for exam: screening (asymptomatic). Last mammogram was performed 2 years and 7 months ago. History: Patient is postmenopausal. Physical Findings: A clinical breast exam by your physician is recommended on an annual basis and results should be correlated with mammographic findings. MG 3D Screening Mammo W/Cad Bilateral CC and MLO view(s) were taken. Prior study comparison: October 29, 2016, bilateral MG 3d screening mammo w/cad. November 15, 2014, mammogram, performed at [facility]. There are scattered fibroglandular densities. No significant changes when compared with prior studies. ASSESSMENT: Benign, BI-RAD 2 RECOMMENDATION: Routine screening mammogram of both breasts in 1 year.
== END | disposition home or self-care (01) ==
LOC: RADMAMWWP 15:35
PROVIDERS: ATTEND Internal Medicine
DX: Z12.31 Encounter for screening mammogram for malignant neoplasm of breast (principal)
CPT/HCPCS: 77063; 77067

== ENCOUNTER → 2020-09-19 | Outpatient (CLI) | payer MEDICARE, OTHER ==
--- NOTE | 2020-09-23 10:41 | MM ---
Reason for exam: screening (asymptomatic). Last mammogram was performed 1 year and 3 months ago. History: Patient is postmenopausal. Physical Findings: A clinical breast exam by your physician is recommended on an annual basis and results should be correlated with mammographic findings. MG 3D Screening Mammo W/Cad Bilateral CC and MLO view(s) were taken. Prior study comparison: June 13, 2019, bilateral MG 3d screening mammo w/cad. October 29, 2016, bilateral MG 3d screening mammo w/cad. There are scattered fibroglandular densities. There is chronic nodularity in the left breast. No significant changes when compared with prior studies. ASSESSMENT: Benign, BI-RAD 2 RECOMMENDATION: Routine screening mammogram of both breasts in 1 year.
== END | disposition home or self-care (01) ==
LOC: RADMAMWWP 13:31
PROVIDERS: ATTEND Internal Medicine
DX: Z12.31 Encounter for screening mammogram for malignant neoplasm of breast (principal); Z78.0 Asymptomatic menopausal state
CPT/HCPCS: 77063; 77067

== ENCOUNTER → 2021-06-09 | Outpatient (CLI) | payer MEDICARE, OTHER ==
--- NOTE | 2021-06-09 12:36 | XR ---
EXAMINATION TYPE: XR chest 2V DATE OF EXAM: 06/09/2021 COMPARISON: Chest x-ray April 21, 2019 HISTORY: Cough and bronchiectasis. TECHNIQUE: Frontal and lateral views of the chest are obtained. FINDINGS: There is chronic parenchymal change with right basilar scarring and surgical clip. No ple ural effusion is seen bilaterally. The cardiac silhouette size is stable and mildly enlarged. Right hilar surgical clips and sutures posteriorly redemonstrated. Right-sided volume loss with mediastinal shift again seen. The osseous structures are intact. IMPRESSION: Mild cardiomegaly and Chronic changes without acute pulmonary process. No significant ch xavier from prior.
== END | disposition home or self-care (01) ==
LOC: RADXRMAIN 11:58
PROVIDERS: ATTEND Internal Medicine
DX: I51.7 Cardiomegaly (principal)
CPT/HCPCS: 71046

== ENCOUNTER 2021-07-01 17:37 | Emergency (ER) | payer MEDICARE, OTHER ==
[2021-07-01 18:53] VITALS: BP 145/74; PULSE 82; RESP 20; TEMP 98.5
--- NOTE | 2021-07-01 21:54 | XR ---
EXAMINATION TYPE: XR chest 2V DATE OF EXAM: 07/01/2021 COMPARISON: 06/09/2021 HISTORY: Shortness of breath TECHNIQUE: Frontal and lateral views of the chest are obtained. FINDINGS: Scattered senescent parenchymal changes noted. Hyperinflation compatible with COPD. Right basilar par enchymal scarring or atelectasis. No evidence for infiltrate. Heart size is stable. Mediastinal structures are stable and grossly unremarkable. No evidence for hilar prominence. Degenerative changes dorsal spine. IMPRESSION: 1. No evidence for acute pulmonary disease.
--- NOTE | 2021-07-01 22:06 | ED ---
URI HPI - General Chief Complaint: Upper Respiratory Infection Stated Complaint: headache, cough, congestion Time Seen by Provider: 07/01/21 20:50 Source: patient Mode of arrival: ambulatory Limitations: no limitations - History of Present Illness Initial Comments: 70-year-old female patient presents to the emergency department today for evaluation of nasal congestion, cough, scratchy throat. States symptoms have been present for the last few days. She denies any fever or chills. Denies any worsening shortness of breath. Does have a history of chronic bronchitis and COPD. States she has been vaccinated did receive booster for COVID-19. She denies any chest pain. Denies nausea, vomiting, constipation, or current diarrhea. Patient denies any recent rash, abdominal pain, back pain, numbness, tingling, dizziness, weakness, hematuria, dysuria, urinary urgency, urinary frequency, headache, visual changes, or any other complaints. - Related Data Home Medications Medication Instructions Recorded Confirmed Albuterol Inhaler (Mhu) [Ventolin 1 - 2 puff INHALATION RT-Q6H PRN 01/22/17 09/02/18 Hfa Inhaler (Mhu)] Budesonide [Pulmicort Flexhaler] 2 puff INHALATION RT-BID PRN 01/22/17 09/02/18 Fluticasone/Salmeterol [Advair 1 puff INHALATION RT-DAILY 01/22/17 09/02/18 250-50 Diskus] Albuterol Nebulized [Ventolin 2.5 mg INHALATION RT-Q6H PRN 09/02/18 09/02/18 Nebulized] FLUoxetine HCL [PROzac] 20 mg PO HS 09/02/18 09/02/18 lisinopriL [Zestril] 5 mg PO DAILY 09/02/18 09/02/18 Previous Rx's Medication Instructions Recorded Cyclobenzaprine [Flexeril] 10 mg PO TID #15 tab 09/02/18 Ibuprofen 600 mg PO TID #20 tablet 09/02/18 traMADol HCl [Ultram] 50 mg PO Q4HR PRN 3 Days #12 tab 09/02/18 guaiFENesin-DM 600/30MG [Mucinex 2 each PO Q12HR PRN #20 tab 07/01/21 Dm] Allergies Allergy/AdvReac Type Severity Reaction Status Date / Time prednisone Allergy Rash/Hives Verified 07/01/21 18:49 codeine AdvReac Unknown Verified 07/01/21 18:49 Review of Systems ROS Statement: Those systems with pertinent positive or pertinent negative responses have been documented in the HPI. ROS Other: All systems not noted in ROS Statement are negative. Past Medical History Past Medical History: COPD, Diabetes Mellitus, Hypertension Additional Past Medical History / Comment(s): bipolar, schizo History of Any Multi-Drug Resistant Organisms: None Reported Past Surgical History: Cholecystectomy, Hysterectomy Additional Past Surgical History / Comment(s): lobectomy-right lung, cataract Past Anesthesia/Blood Transfusion Reactions: No Reported Reaction Past Psychological History: Bipolar, Depression, Schizophrenia Smoking Status: Never smoker Past Alcohol Use History: None Reported Past Drug Use History: None Reported General Exam Limitations: no limitations General appearance: alert, in no apparent distress, other (Physical well- developed, well-nourished adult female in no acute distress. ) Eye exam: Present: normal appearance, PERRL, EOMI. Absent: scleral icterus, conjunctival injection, periorbital swelling ENT exam: Present: normal exam, normal oropharynx, mucous membranes moist, TM's normal bilaterally Respiratory exam: Present: normal lung sounds bilaterally, wheezes (Faint expiratory wheezing noted in the posterior lung hunt). Absent: respiratory distress, rales, rhonchi, stridor Cardiovascular Exam: Present: regular rate, normal rhythm, normal heart sounds. Absent: systolic murmur, diastolic murmur, rubs, gallop, clicks GI/Abdominal exam: Present: soft, normal bowel sounds. Absent: distended, tenderness, guarding, rebound, rigid Neurological exam: Present: alert, oriented X3, CN II-XII intact Psychiatric exam: Present: normal affect, normal mood Skin exam: Present: warm, dry, intact, normal color. Absent: rash Course Vital Signs 07/01/21 18:49 Temperature 98.5 F Pulse Rate 82 Respiratory 20 Rate Blood Pressure 145/74 O2 Sat by Pulse 95 Oximetry Medical Decision Making - Medical Decision Making 70-year-old female patient presents to the emergency department today for evaluation of upper respiratory congestion, scratchy throat, cough. Physical examination revealed faint expiratory wheezing in the posterior lung hunt. She does have history of COPD and chronic bronchitis. She tested negative for COVID-19 and influenza. Chest x-ray was negative. Symptoms are consistent with viral upper respiratory infection. She'll be discharged with Mucinex DM. Instructed to continue home breathing treatments. She is instructed to follow- up with her primary care physician for recheck in 1-2 days. Return parameters were discussed in detail. She verbalizes understanding and agrees with this plan. My attending is Dr. Jones. - Lab Data Lab Results 07/01/21 07/01/21 Range/Units 18:54 21:03 Coronavirus (PCR) Not Detected (Not Detectd) Influenza Type A RNA Not Detected (Not Detectd) Influenza Type B (PCR) Not Detected (Not Detectd) - Radiology Data Radiology results: report reviewed, image reviewed Two-view x-ray of the chest is obtained. Report is reviewed in its entirety. Impression by Dr. Barreto shows no evidence for acute pulmonary disease. Disposition Clinical Impression: Viral upper respiratory illness Disposition: HOME SELF-CARE Condition: Good Instructions (If sedation given, give patient instructions): Upper Respiratory Infection (ED) Additional Instructions: Take medications as directed. Follow-up through primary care physician for recheck in 1-2 days. Return for any new, worsening, or concerning symptoms. Prescriptions: guaiFENesin-DM 600/30MG [Mucinex Dm] 2 each PO Q12HR PRN #20 tab PRN Reason: Cough Is patient prescribed a controlled substance at d/c from ED?: No Referrals: Renzo Williamson MD [Primary Care Provider] - 1-2 days Time of Disposition: 22:17
== END 2021-07-01 22:39 | disposition home or self-care (01) ==
LOC: EC 17:37
DX: J06.9 Acute upper respiratory infection, unspecified (principal); Z20.822 Contact with and (suspected) exposure to COVID-19; E11.9 Type 2 diabetes mellitus without complications; I10 Essential (primary) hypertension; J44.9 Chronic obstructive pulmonary disease, unspecified; F31.9 Bipolar disorder, unspecified; F20.9 Schizophrenia, unspecified; Z79.51 Long term (current) use of inhaled steroids; Z79.1 Long term (current) use of non-steroidal anti-inflammatories (NSAID); Z79.899 Other long term (current) drug therapy
CPT/HCPCS: 71046; 87502; 87635; 99283

== ENCOUNTER 2021-09-27 23:13 | Emergency (ER) | payer MEDICARE, OTHER ==
[2021-09-27 23:37] VITALS: BP 183/84; PULSE 91; RESP 24; TEMP 98.4
== END 2021-09-28 00:12 | disposition left against medical advice (07) ==
LOC: EC 23:13
DX: Z53.21 Procedure and treatment not carried out due to patient leaving prior to being seen by health care provider (principal); Z20.822 Contact with and (suspected) exposure to COVID-19
CPT/HCPCS: 87635; 99499

== ENCOUNTER → 2021-11-06 | Outpatient (CLI) | payer MEDICARE, OTHER ==
[2021-11-06 19:11] LABS: Basophils # (A) 0.07 X 10*3/uL (0.00-0.10); Basophils % (A) 0.9 %; Eosinophils # (A) 0.29 X 10*3/uL (0.04-0.35); Eosinophils % (A) 3.9 %; HCT 45.3 % (37.2-46.3); Immature Grans, Automated 0.3 %; Lymphocytes # (A) 1.87 X 10*3/uL (0.90-5.00); Lymphocytes % (A) 25.4 %; MCH 28.8 pg (27.0-32.0); MCHC 30.9 g/dL (32.0-37.0); MCV 93.2 fL (80.0-97.0); Mean Platelet Volume 9.4 fL (9.5-12.2); Monocytes # (A) 0.58 X 10*3/uL (0.20-1.00); Monocytes % (A) 7.9 %; NRBC Per 100 WBC 0 /100 WBCS (0.0-0.0); Neutrophils # (A) 4.54 X 10*3/uL (1.80-7.70); Neutrophils % (A) 61.6 %; Platelet Count 254 X 10*3/uL (140-440); RBC 4.86 X 10*6/uL (4.10-5.20); RDW 13.9 % (11.5-14.5); WBC 7.37 X 10*3/uL (4.50-10.00)
[2021-11-06 19:25] LABS: Erythrocyte Sedimentation Rate 37 mm/Hr (0-30)
[2021-11-06 20:02] LABS: ALT 20 U/L (8-44); AST 21 U/L (13-35); African American GFR (CKD) 86.6 (60.0-200.0); Albumin 4.1 g/dL (3.8-4.9); Albumin/Globulin Ratio 1.17 (1.60-3.17); Alkaline Phosphatase 73 U/L (41-126); BUN/Creat Ratio 19.75 Ratio (12.00-20.00); Blood Urea Nitrogen 15.8 mg/dL (9.0-27.0); Calcium 9.5 mg/dL (8.7-10.3); Chloride 103 mmol/L (96-109); Creatine Kinase 78 U/L (26-186); Globulin 3.5 g/dL (1.6-3.3); Glucose 124 mg/dL (70-110); Magnesium 2.2 mg/dL (1.5-2.4); Non-African American GFR(CKD) 74.7 (60.0-200.0); Phosphorus 3.7 mg/dL (2.4-5.1); Potassium 4.7 mmol/L (3.5-5.5); Sodium 141 mmol/L (135-145); Total Protein 7.6 g/dL (6.2-8.2); Uric Acid 6.1 mg/dL (2.9-7.7)
[2021-11-06 20:38] LABS: Appearance,Urine Clear (Clear); Bacteria,Urine None Seen /HPF (None Seen); Bilirubin,Urine Negative (Negative); Blood,Urine Small (Negative); Color,Urine Yellow (Yellow); Ketones,Urine Negative (Negative); Nitrite,Urine Negative (Negative); PH, Urine 5.5 (5.0-8.0); Specific Gravity,Urine 1.016 (1.001-1.030); Urobilinogen,Urine 0.2 (0.2,1.0)
[2021-11-06 20:54] LABS: Chol/HDL Ratio 4.65 Ratio; LDL Cholesterol,Calculated 123.8 mg/dL (0.0-131.0)
[2021-11-06 23:20] LABS: Urine Creatinine 88.7 mg/dL (28.0-217.0)
== END | disposition home or self-care (01) ==
LOC: LABWHC1 10:25
PROVIDERS: ATTEND Internal Medicine
DX: D64.9 Anemia, unspecified (principal); J44.9 Chronic obstructive pulmonary disease, unspecified; I10 Essential (primary) hypertension; E78.5 Hyperlipidemia, unspecified; N28.1 Cyst of kidney, acquired
CPT/HCPCS: 36415; 80053; 80061; 81001; 82043; 82306; 82550; 82570; 83036; 83735; 83970; 84100; 84443; 84550; 85025; 85652; 86140

== ENCOUNTER → 2021-11-13 | Outpatient (CLI) | payer MEDICARE, OTHER ==
--- NOTE | 2021-11-17 13:23 | MM ---
Reason for Exam: Screening (asymptomatic). Last mammogram was performed 1 year(s) and 2 month(s) ago. Patient History: Menarche at age 13. First Full-Term at age 17. Left ovary removed at age 51. Right ovary removed at age 51. Hysterectomy at age 51. Postmenopausal. Film Views: Bilateral CC views were taken. Bilateral MLO views were taken. Bilateral XCCL views were taken. Prior Study Comparison: 10/29/2016 Bilateral Screening Mammogram, [facility]. 06/13/2019 Bilateral Screening Mammogram, [facility]. 09/19/2020 Bilateral Screening Mammogram, [facility]. Tissue Density: The breast tissue is almost entirely fat. Findings: Analyzed By CAD. No significant changes when compared with prior studies. Chronic nodularity in the left breast. Overall Assessment: Negative, BI-RAD 1 Management: Screening Mammogram of both breasts in 1 year.
== END | disposition home or self-care (01) ==
LOC: RADMAMWWP 10:06
PROVIDERS: ATTEND Internal Medicine
DX: Z12.31 Encounter for screening mammogram for malignant neoplasm of breast (principal); Z78.0 Asymptomatic menopausal state; Z90.721 Acquired absence of ovaries, unilateral; Z90.710 Acquired absence of both cervix and uterus
CPT/HCPCS: 77063; 77067

== ENCOUNTER 2022-01-29 11:43 | Emergency (ER) | payer MEDICARE, OTHER ==
[2022-01-29 12:01] VITALS: BP 129/61; PULSE 66; RESP 18; TEMP 98.1
--- NOTE | 2022-01-29 13:35 | ED ---
General Adult HPI - General Chief complaint: Recheck/Abnormal Lab/Rx Stated complaint: wants Covid test Time Seen by Provider: 01/29/22 13:18 Source: patient Mode of arrival: ambulatory Limitations: no limitations - History of Present Illness Initial comments: Any 1-year-old female with past HISTORY of COPD and diabetes presents to the emergency room and requesting Covid testing. Patient denies having any symptoms however states that she lives with her grandson who was tested yesterday and found to be positive today. Patient states that she drove her grandson to the clinic yesterday where he was tested. She is vaccinated. Denies fevers, chills, nausea, vomiting, chest pain or shortness of breath. No other alleviating, precipitating or modifying factors - Related Data Home Medications Medication Instructions Recorded Confirmed Albuterol Inhaler [Ventolin Hfa 1 - 2 puff INHALATION RT-Q6H PRN 01/22/17 Inhaler] Budesonide [Pulmicort Flexhaler] 2 puff INHALATION RT-BID PRN 01/22/17 09/02/18 Fluticasone Propion/Salmeterol 1 puff INHALATION RT-DAILY 01/22/17 09/02/18 [Advair 250-50 Diskus] Albuterol Nebulized [Ventolin 2.5 mg INHALATION RT-Q6H PRN 09/02/18 09/02/18 Nebulized] FLUoxetine HCL [PROzac] 20 mg PO HS 09/02/18 09/02/18 lisinopriL [Zestril] 5 mg PO DAILY 09/02/18 09/02/18 Previous Rx's Medication Instructions Recorded Cyclobenzaprine [Flexeril] 10 mg PO TID #15 tab 09/02/18 Ibuprofen 600 mg PO TID #20 tablet 09/02/18 traMADol HCl [Ultram] 50 mg PO Q4HR PRN 3 Days #12 tab 09/02/18 guaiFENesin-DM 600/30MG [Mucinex 2 each PO Q12HR PRN #20 tab 07/01/21 Dm] Allergies Allergy/AdvReac Type Severity Reaction Status Date / Time prednisone Allergy Rash/Hives Verified 09/27/21 23:37 codeine AdvReac Unknown Verified 09/27/21 23:37 Review of Systems ROS Statement: Those systems with pertinent positive or pertinent negative responses have been documented in the HPI. ROS Other: All systems not noted in ROS Statement are negative. Past Medical History Past Medical History: COPD, Diabetes Mellitus, Hypertension Additional Past Medical History / Comment(s): bipolar, schizo History of Any Multi-Drug Resistant Organisms: None Reported Past Surgical History: Cholecystectomy, Hysterectomy Additional Past Surgical History / Comment(s): lobectomy-right lung, cataract Past Anesthesia/Blood Transfusion Reactions: No Reported Reaction Past Psychological History: Bipolar, Depression, Schizophrenia Smoking Status: Never smoker Past Alcohol Use History: None Reported Past Drug Use History: None Reported General Exam Limitations: no limitations Course Vital Signs 01/29/22 11:58 Temperature 98.1 F Pulse Rate 66 Respiratory 18 Rate Blood Pressure 129/61 O2 Sat by Pulse 93 L Oximetry Medical Decision Making - Medical Decision Making Upon arrival patient was placed into [facility] room. She is tested for Covid and is negative. We'll be discharged home and instructed that she needs to be retested if she develops symptoms. Patient understood and was discharged in stable condition - Lab Data Lab Results 01/29/22 Range/Units 12:02 Coronavirus (PCR) Not Detected (Not Detectd) Disposition Clinical Impression: Exposure to COVID-19 virus Disposition: HOME SELF-CARE Condition: Stable Instructions (If sedation given, give patient instructions): Normal Exam (ED) Additional Instructions: You must be retested if you develops symptoms Is patient prescribed a controlled substance at d/c from ED?: No Referrals: Renzo Williamson MD [Primary Care Provider] - 1-2 days Time of Disposition: 13:35
== END 2022-01-29 14:03 | disposition home or self-care (01) ==
LOC: EC 11:43
DX: Z20.822 Contact with and (suspected) exposure to COVID-19 (principal); J44.9 Chronic obstructive pulmonary disease, unspecified; E11.9 Type 2 diabetes mellitus without complications; I10 Essential (primary) hypertension; Z88.8 Allergy status to other drugs, medicaments and biological substances; Z79.899 Other long term (current) drug therapy; Z79.51 Long term (current) use of inhaled steroids
CPT/HCPCS: 87635; 99283

== ENCOUNTER → 2022-06-01 | Outpatient (CLI) | payer MEDICARE, OTHER ==
[2022-06-01 14:58] LABS: Anion Gap 11.6 mmol/L (10.00-18.00); BUN/Creat Ratio 19.13 Ratio (12.00-20.00); Blood Urea Nitrogen 15.3 mg/dL (9.0-27.0); Calcium 9.4 mg/dL (8.7-10.3); Carbon Dioxide 25.4 mmol/L (20.0-27.5); Non-African American GFR(CKD) 74.2 (60.0-200.0); Potassium 4.7 mmol/L (3.5-5.5)
== END | disposition home or self-care (01) ==
LOC: LABWHC1 10:44
PROVIDERS: ATTEND Internal Medicine
DX: E11.65 Type 2 diabetes mellitus with hyperglycemia (principal)
CPT/HCPCS: 36415; 80048; 83036

== ENCOUNTER 2022-06-07 11:06 | Inpatient (IN) | payer MEDICARE, OTHER ==
[2022-06-07] MEDS ORDERED: IPRATROPIUM 0.5 MG/2.5 ML NEBU INHALATION STA (12:01)
[2022-06-07] MEDS ORDERED: ALBUTEROL NEBULIZED 2.5 MG/3 ML INHALATION STA (12:01)
[2022-06-07] MEDS ORDERED: methylPREDNISolone SOD SUCCI 125 MG/2 ML VIAL IV STA (12:01)
--- NOTE | 2022-06-07 12:29 | ED ---
General Adult HPI - General Chief complaint: Shortness of Breath Stated complaint: SOB, congestion Time Seen by Provider: 06/07/22 11:40 Source: patient, RN notes reviewed, old records reviewed Mode of arrival: ambulatory Limitations: no limitations - History of Present Illness Initial comments: This is a 71-year-old female who presents to the emergency department complaining of difficulty breathing over the last 3 days. Patient states she also has positive sputum production. Patient states she has a history of COPD and quit smoking 20 years ago. Patient denies any fevers or chills. Patient denies any chest pain or palpitations. Patient denies abdominal pain patient denies nausea vomiting diarrhea. Patient denies headache patient denies nu mbness weakness. Patient denies lightheadedness or dizziness. Patient denies any swelling to the legs or calf tenderness. - Related Data Home Medications Medication Instructions Recorded Confirmed Albuterol Inhaler [Ventolin Hfa 1 - 2 puff INHALATION RT-Q6H PRN 01/22/17 06/07/22 Inhaler] Albuterol Nebulized [Ventolin 2.5 mg INHALATION RT-Q6H PRN 09/02/18 06/07/22 Nebulized] FLUoxetine HCL [PROzac] 20 mg PO HS 09/02/18 06/07/22 lisinopriL [Zestril] 5 mg PO DAILY 09/02/18 06/07/22 Atorvastatin [Lipitor] 20 mg PO HS 06/07/22 06/07/22 Fluticasone Propion/Salmeterol 1 puff INHALATION RT-BID 06/07/22 06/07/22 [Fluticasone-Salmeterol 500-50] metFORMIN HCL 500 mg PO BID 06/07/22 06/07/22 Allergies Allergy/AdvReac Type Severity Reaction Status Date / Time prednisone Allergy Rash/Hives Verified 06/07/22 12:39 codeine AdvReac Unknown Verified 06/07/22 12:39 Review of Systems ROS Statement: Those systems with pertinent positive or pertinent negative responses have been documented in the HPI. ROS Other: All systems not noted in ROS Statement are negative. Past Medical History Past Medical History: COPD, Diabetes Mellitus, Hypertension Additional Past Medical History / Comment(s): bipolar, schizo History of Any Multi-Drug Resistant Organisms: None Reported Past Surgical History: Cholecystectomy, Hysterectomy Additional Past Surgical History / Comment(s): lobectomy-right lung, cataract Past Anesthesia/Blood Transfusion Reactions: No Reported Reaction Past Psychological History: Bipolar, Depression, Schizophrenia Smoking Status: Never smoker Past Alcohol Use History: None Reported Past Drug Use History: None Reported General Exam - General Exam Comments Initial Comments: GENERAL: Patient is well-developed and well-nourished. Patient is nontoxic and well- hydrated and is in mild distress. ENT: Neck is soft and supple. No significant lymphadenopathy is noted. Oropharynx is clear. Moist mucous membranes. Neck has full range of motion without eliciting any pain. EYES: The sclera were anicteric and conjunctiva were pink and moist. Extraocular movements were intact and pupils were equal round and reactive to light. Eyelids were unremarkable. PULMONARY: Patient has diffuse expiratory wheezing with crackles on the right side. CARDIOVASCULAR: There is a regular rate and rhythm without any murmurs gallops or rubs. ABDOMEN: Soft and nontender with normal bowel sounds. SKIN: Skin is clear with no lesions or rashes and otherwise unremarkable. NEUROLOGIC: Patient is alert and oriented x3. Cranial nerves II through XII are grossly intact. Motor and sensory are also intact. Normal speech, volume and content. Symmetrical smile. MUSCULOSKELETAL: Normal extremities with adequate strength and full range of motion. No lower extremity swelling or edema. No calf tenderness. LYMPHATICS: No significant lymphadenopathy is noted PSYCHIATRIC: Normal psychiatric evaluation. Limitations: no limitations Course Vital Signs 06/07/22 06/07/22 06/07/22 11:38 11:46 12:47 Temperature 97.7 F Pulse Rate 87 74 Respiratory 46 H 20 Rate Blood Pressure 126/66 O2 Sat by Pulse 94 L Oximetry Medical Decision Making - Medical Decision Making EKG was interpreted by me. EKG shows a sinus rhythm at 81 bpm MN interval 225 QRS is 93 Q-T intervals 380 QTC is 425 per patient's EKG shows no ST segment elevation or depression. I interpreted the chest x-ray showed no acute abnormality. Patient received multiple breathing treatments and steroids in the emergency department though it improved her symptoms she continued to wheeze diffusely. After the treatments and reexamined the patient and her lung sounds were imp roved but still was diffuse wheezing. Patient states she felt slightly better. I spoke with Dr. Williamson agreed to admit the patient admitted the patient wrote admitting orders. I consult pulmonary. - Lab Data Result diagrams: 06/07/22 12:14 06/07/22 12:14 Lab Results 06/07/22 06/07/22 06/07/22 Range/Units 12:03 12:03 12:14 WBC 7.2 (3.8-10.6) k/uL RBC 4.82 (3.80-5.40) m/uL Hgb 14.1 (11.4-16.0) gm/dL Hct 44.2 (34.0-46.0) % MCV 91.6 (80.0-100.0) fL MCH 29.2 (25.0-35.0) pg MCHC 31.9 (31.0-37.0) g/dL RDW 12.8 (11.5-15.5) % Plt Count 241 (150-450) k/uL MPV 7.2 Neutrophils % 66 % Lymphocytes % 25 % Monocytes % 4 % Eosinophils % 2 % Basophils % 1 % Neutrophils # 4.7 (1.3-7.7) k/uL Lymphocytes # 1.8 (1.0-4.8) k/uL Monocytes # 0.3 (0-1.0) k/uL Eosinophils # 0.1 (0-0.7) k/uL Basophils # 0.1 (0-0.2) k/uL PT (9.0-12.0) sec INR (<1.2) APTT (22.0-30.0) sec Sodium (137-145) mmol/L Potassium (3.5-5.1) mmol/L Chloride (98-107) mmol/L Carbon Dioxide (22-30) mmol/L Anion Gap mmol/L BUN (7-17) mg/dL Creatinine (0.52-1.04) mg/dL Est GFR (CKD-EPI)AfAm (>60 ml/min/1.73 sqM) Est GFR (CKD-EPI)NonAf (>60 ml/min/1.73 sqM) Glucose (74-99) mg/dL Plasma Lactic Acid Amador (0.7-2.0) mmol/L Calcium (8.4-10.2) mg/dL Magnesium (1.6-2.3) mg/dL Total Bilirubin (0.2-1.3) mg/dL AST (14-36) U/L ALT (4-34) U/L Alkaline Phosphatase (38-126) U/L Troponin I (0.000-0.034) ng/mL NT-Pro-B Natriuret Pep pg/mL Total Protein (6.3-8.2) g/dL Albumin (3.5-5.0) g/dL Coronavirus (PCR) Not Detected (Not Detectd) Influenza Type A RNA Not Detected (Not Detectd) Influenza Type B (PCR) Not Detected (Not Detectd) 06/07/22 06/07/22 06/07/22 Range/Units 12:14 12:14 12:14 WBC (3.8-10.6) k/uL RBC (3.80-5.40) m/uL Hgb (11.4-16.0) gm/dL Hct (34.0-46.0) % MCV (80.0-100.0) fL MCH (25.0-35.0) pg MCHC (31.0-37.0) g/dL RDW (11.5-15.5) % Plt Count (150-450) k/uL MPV Neutrophils % % Lymphocytes % % Monocytes % % Eosinophils % % Basophils % % Neutrophils # (1.3-7.7) k/uL Lymphocytes # (1.0-4.8) k/uL Monocytes # (0-1.0) k/uL Eosinophils # (0-0.7) k/uL Basophils # (0-0.2) k/uL PT 9.9 (9.0-12.0) sec INR 0.9 (<1.2) APTT 24.6 (22.0-30.0) sec Sodium 141 (137-145) mmol/L Potassium 4.5 (3.5-5.1) mmol/L Chloride 106 (98-107) mmol/L Carbon Dioxide 28 (22-30) mmol/L Anion Gap 7 mmol/L BUN 15 (7-17) mg/dL Creatinine 0.71 (0.52-1.04) mg/dL Est GFR (CKD-EPI)AfAm >90 (>60 ml/min/1.73 sqM) Est GFR (CKD-EPI)NonAf 86 (>60 ml/min/1.73 sqM) Glucose 153 H (74-99) mg/dL Plasma Lactic Acid Amador 1.3 (0.7-2.0) mmol/L Calcium 8.5 (8.4-10.2) mg/dL Magnesium 2.0 (1.6-2.3) mg/dL Total Bilirubin 0.5 (0.2-1.3) mg/dL AST 22 (14-36) U/L ALT 23 (4-34) U/L Alkaline Phosphatase 92 (38-126) U/L Troponin I (0.000-0.034) ng/mL NT-Pro-B Natriuret Pep pg/mL Total Protein 7.2 (6.3-8.2) g/dL Albumin 3.9 (3.5-5.0) g/dL Coronavirus (PCR) (Not Detectd) Influenza Type A RNA (Not Detectd) Influenza Type B (PCR) (Not Detectd) 06/07/22 06/07/22 Range/Units 12:14 12:14 WBC (3.8-10.6) k/uL RBC (3.80-5.40) m/uL Hgb (11.4-16.0) gm/dL Hct (34.0-46.0) % MCV (80.0-100.0) fL MCH (25.0-35.0) pg MCHC (31.0-37.0) g/dL RDW (11.5-15.5) % Plt Count (150-450) k/uL MPV Neutrophils % % Lymphocytes % % Monocytes % % Eosinophils % % Basophils % % Neutrophils # (1.3-7.7) k/uL Lymphocytes # (1.0-4.8) k/uL Monocytes # (0-1.0) k/uL Eosinophils # (0-0.7) k/uL Basophils # (0-0.2) k/uL PT (9.0-12.0) sec INR (<1.2) APTT (22.0-30.0) sec Sodium (137-145) mmol/L Potassium (3.5-5.1) mmol/L Chloride (98-107) mmol/L Carbon Dioxide (22-30) mmol/L Anion Gap mmol/L BUN (7-17) mg/dL Creatinine (0.52-1.04) mg/dL Est GFR (CKD-EPI)AfAm (>60 ml/min/1.73 sqM) Est GFR (CKD-EPI)NonAf (>60 ml/min/1.73 sqM) Glucose (74-99) mg/dL Plasma Lactic Acid Amador (0.7-2.0) mmol/L Calcium (8.4-10.2) mg/dL Magnesium (1.6-2.3) mg/dL Total Bilirubin (0.2-1.3) mg/dL AST (14-36) U/L ALT (4-34) U/L Alkaline Phosphatase (38-126) U/L Troponin I <0.012 (0.000-0.034) ng/mL NT-Pro-B Natriuret Pep 58 pg/mL Total Protein (6.3-8.2) g/dL Albumin (3.5-5.0) g/dL Coronavirus (PCR) (Not Detectd) Influenza Type A RNA (Not Detectd) Influenza Type B (PCR) (Not Detectd) Critical Care Time Critical Care Time: Yes Total Critical Care Time: 35 Disposition Clinical Impression: COPD with acute exacerbation Disposition: ADMITTED IP TO THIS HOSP Referrals: Renzo Williamson MD [Primary Care Provider] - 1-2 days Time of Disposition: 13:23
[2022-06-07 12:35] LABS: ALT 23 U/L (4-34); AST 22 U/L (14-36); African American GFR (CKD) >90 (>60 ml/min/1.73 sqM); Albumin 3.9 g/dL (3.5-5.0); Alkaline Phosphatase 92 U/L (38-126); Anion Gap 7 mmol/L; Blood Urea Nitrogen 15 mg/dL (7-17); Calcium 8.5 mg/dL (8.4-10.2); Carbon Dioxide 28 mmol/L (22-30); Chloride 106 mmol/L (98-107); Glucose 153 mg/dL (74-99); Non-African American GFR(CKD) 86 (>60 ml/min/1.73 sqM); Potassium 4.5 mmol/L (3.5-5.1); Sodium 141 mmol/L (137-145); Total Bilirubin 0.5 mg/dL (0.2-1.3); Total Protein 7.2 g/dL (6.3-8.2)
[2022-06-07 12:36] LABS: Basophils # (A) 0.1 k/uL (0-0.2); Basophils % (A) 1 %; Eosinophils # (A) 0.1 k/uL (0-0.7); Eosinophils % (A) 2 %; HCT 44.2 % (34.0-46.0); HGB 14.1 gm/dL (11.4-16.0); Lymphocytes # (A) 1.8 k/uL (1.0-4.8); Lymphocytes % (A) 25 %; MCH 29.2 pg (25.0-35.0); MCHC 31.9 g/dL (31.0-37.0); MCV 91.6 fL (80.0-100.0); Mean Platelet Volume 7.2; Monocytes # (A) 0.3 k/uL (0-1.0); Monocytes % (A) 4 %; Neutrophils # (A) 4.7 k/uL (1.3-7.7); Neutrophils % (A) 66 %; Platelet Count 241 k/uL (150-450); RBC 4.82 m/uL (3.80-5.40); RDW 12.8 % (11.5-15.5); WBC 7.2 k/uL (3.8-10.6)
--- NOTE | 2022-06-07 12:43 | XR ---
EXAMINATION TYPE: XR chest 2V DATE OF EXAM: 06/07/2022 COMPARISON: 07/01/2021 HISTORY: Shortness of breath TECHNIQUE: Frontal and lateral views of the chest are obtained. FINDINGS: Scattered senescent parenchymal changes noted. Hyperinflation compatible with COPD. No evidence for infiltrate. No evidence for atelectasis. Heart size is stable. Mediastinal structures are stable and grossly unremarkable. No evidence for hilar prominence. Degenerative changes dorsal spine. IMPRESSION: 1. No evidence for acute pulmonary disease.
[2022-06-07] MEDS ORDERED: cefTRIAXone IN SWFI 1,000 MG/10 ML SYRINGE IVP STA (13:16)
[2022-06-07] MEDS ORDERED: IPRATROPIUM-ALBUTEROL 3 ML NEB INHALATION STA (13:17)
[2022-06-07 13:28] LABS: INR 0.9 (<1.2); Partial Thromboplastin Time 24.6 sec (22.0-30.0); Prothrombin Time 9.9 sec (9.0-12.0)
[2022-06-07] MEDS ORDERED: NALOXONE 0.4 MG/ML 1 ML VIAL IVP PRN (13:30)
[2022-06-07 15:14] LABS: VBG PH 7.34 (7.31-7.41)
[2022-06-07] MEDS: IPRATROPIUM-ALBUTEROL 3 ML NEB INHALATION SCH ×2 (16:13→21:00)
[2022-06-07] MEDS ORDERED: ALBUTEROL NEBULIZED 2.5 MG/3 ML INHALATION PRN (16:25)
[2022-06-07] MEDS ORDERED: lisinopriL 5 MG TAB PO SCH (16:30)
[2022-06-07] MEDS: INSULIN ASPART (NovoLOG) 100 UNIT/ML VIAL SQ SCH ×2 (18:12→20:03)
[2022-06-07] MEDS: methylPREDNISolone SOD SUCCI 125 MG/2 ML VIAL IV SCH ×2 (18:18→23:26)
[2022-06-07] MEDS: metFORMIN 500 MG TAB PO SCH (18:18)
[2022-06-07 19:57] LABS: Glucose,Whole Blood 250 mg/dL (70-110)
[2022-06-07] MEDS: ATORVASTATIN 20 MG TAB PO SCH (20:03)
[2022-06-07] MEDS: FLUoxetine HCL 20 MG CAP PO SCH (20:03)
[2022-06-07] MEDS: lisinopriL 10 MG TAB PO SCH (20:03)
[2022-06-07] MEDS: SYMBICORT 160-4.5 MCG INHALER INHALATION SCH (21:00)
--- NOTE | 2022-06-08 00:32 | HP ---
HISTORY AND PHYSICAL The patient seen in the exam room in the ER #17 with the underlying acute exacerbation of COPD with the progression with the underlying bronchiectasis. DATA: She is 5 feet 2 inches height, weight 99.79 kg, BSA 1.99 m2, BMI 40.2 kg/m2. ALLERGIES: To prednisone and codeine. CHIEF COMPLAINT: Severe shortness of breath and wheezes started 3 days ago and the patient did call Dr. Moreira's office, and they advised her to go to outpatient clinic. Subsequently, the patient found that the outpatient clinic is closed and she came to the ER at [facility]. Severe shortness of breath with the normal modality of treatment at home with inhalation therapy, did not work and she become more worsening, and this time seen in the ER by Dr. Sweeney and subsequently admitted to the hospital. HISTORY OF PRESENT ILLNESS: The patient, who is Mrs. Hayden, 71-year-old white female, and she has a chronic history of asthma, COPD, and bronchiectasis, and she has been doing fairly well until 3 days ago, felt that that she become progressed. She thought that she may able to handle it at home or she will see Dr. Moreira, the Pulmonary and Critical Care, and at that time, they referred her to the outpatient clinic and subsequently was closed. She did not call my office for visit to help her as I am her primary care and subsequently, the patient seen in the ER and found that she had a respiratory rate of 46 and severe wheezing bilateral, and Dr. Sweeney called me to be admitted to the hospital. PAST MEDICAL HISTORY: She had part of her lung has been removed, right lower lobe lobectomy for bronchiectasis in the past. She had history of COPD, chronic smoker for 35 years, 22 years not smoking, and she had COPD. She has umbilical hernia, hypertension uncontrolled, and diabetes mellitus type 2, hyperlipidemia, bronchiectasis, and asthma, and she had vaccination history. She had the flu vaccine in 05/31/2022, and she had COVID-19 vaccine x3 with a booster. SOCIAL HISTORY: She is since 2017 and she is retired from [employer], and she has children 4, 4, para 4, 1 male and 3 daughters, and former smoker as mentioned in the past. Her allergy as mentioned above, prednisone and codeine. MEDICATIONS: She has been on medications: 1. Atorvastatin 20 mg 1 tablet at bedtime. 2. Lisinopril 5 mg tablet daily, however, currently her blood pressure 171/73, and increased her lisinopril to 10 mg twice a day. 3. She had Advair Diskus 500 mcg/50 mcg powder and she take 1 inhalation twice a day. 4. Metformin for diabetes mellitus 500 mg twice a day. 5. Albuterol 90 mcg per inhalation aerosol and albuterol nebulizer at home 2.5 mg/3 mL 0.083% and she had 1 vial 3 times a day. 6. She is on fluoxetine for depression and anxiety and she take 20 mg capsule once a day. REVIEW OF SYSTEMS: The patient currently: NEUROPSYCHIATRY: She has no history of exacerbation of anxiety or depression. PULMONARY: She had started 3 days ago with wheezing and short of breath and could not handle it at home. HEART: Cardiac murphy, she had denied any chest pain or palpitation. GI: No dysphagia. No abdominal pain. No diarrhea or constipation. : No dysuria or hematuria. MUSCULOSKELETAL: She become weak with the shortness of breath. ENDOCRINE: She has history of diabetes, which has been fairly well controlled at home with the current medication. LABORATORY DATA: She had last hemoglobin A1c, was in November 06, 2021 and that was 6.5, and her renal function was 74.7 eGFR, and she had history of normal thyroid function. PHYSICAL EXAMINATION: On the current physical exam: VITAL SIGNS: Her blood pressure at the time of seen was 171/73 with a mean 105, her oxygen saturation was 94 and subsequently 95 on room air, and her pulse rate is 80 per minute, respiratory rate was on admission 46 and subsequently dropped to 20 per minute. HEENT: Head is normocephalic, atraumatic. She had bilateral cataract surgery in the past. The oropharynx was negative with natural teeth. GENERAL: She had also no history of fever or chills or chest pain or palpitation as well. No edema of the lower extremities. NECK: Supple. No JVD. No thyromegaly. No lymphadenopathy. CHEST: She has bilateral inspiratory and expiratory wheezes with the cough. HEART: Regular sinus rhythm and no chest pain. ABDOMEN: Soft, nontender. Positive bowel sounds. EXTREMITIES: No edema and positive pulses. NEUROLOGICAL: No lateralizing sign. PSYCHIATRY: She had history of anxiety and depression and treated with fluoxetine 20 mg, currently stable. ASSESSMENT: 1. Acute exacerbation of chronic obstructive pulmonary disease. 2. History of asthma with exacerbation. 3. History of bronchiectasis, has been treated by Dr. Moreira, Pulmonary and Critical Care. 4. History of hypertension with hypertensive heart disease. 5. History of diabetes mellitus type 2 and has been controlled in the past and we will be checking again her hemoglobin A1c. 6. She had history of ventral hernia and she is an ex-smoker. PLAN: Bronchodilator and already received steroid in the ER and antibiotic, and we will consult Dr. Moreira, the Pulmonary and Critical Care, and further medication depend on the patient's condition. With the blood pressure uncontrolled, increased her lisinopril to 10 mg twice a day and adjusting the dose according to her progression. Also, we are going to start her on insulin to scale especially with the steroid that she has been started in the ER until Dr. Moreira decided what else added to her program. We will obtain hemoglobin A1c. MMODL / IJN: [id number] /
[2022-06-08 06:07] LABS: Basophils % (A) 0 %; Eosinophils % (A) 0 %; HCT 45.2 % (34.0-46.0); Hypochromasia Moderate; Lymphocytes # (A) 1.1 k/uL (1.0-4.8); Lymphocytes % (A) 12 %; MCH 29.2 pg (25.0-35.0); MCV 94.3 fL (80.0-100.0); Mean Platelet Volume 8.1; Monocytes # (A) 0.1 k/uL (0-1.0); Monocytes % (A) 2 %; Neutrophils # (A) 7.5 k/uL (1.3-7.7); Neutrophils % (A) 85 %; Platelet Count 261 k/uL (150-450); RDW 12.6 % (11.5-15.5); WBC 8.8 k/uL (3.8-10.6)
[2022-06-08 06:12] LABS: Glucose,Whole Blood 191 mg/dL (70-110)
[2022-06-08] MEDS: INSULIN ASPART (NovoLOG) 100 UNIT/ML VIAL SQ SCH ×4 (06:27→20:52)
[2022-06-08] MEDS: methylPREDNISolone SOD SUCCI 125 MG/2 ML VIAL IV SCH ×4 (06:27→23:31)
[2022-06-08] MEDS: metFORMIN 500 MG TAB PO SCH ×2 (06:27→17:46)
[2022-06-08] MEDS: IPRATROPIUM-ALBUTEROL 3 ML NEB INHALATION SCH ×4 (07:46→19:56)
[2022-06-08] MEDS: SYMBICORT 160-4.5 MCG INHALER INHALATION SCH ×2 (07:47→19:56)
[2022-06-08] MEDS: lisinopriL 10 MG TAB PO SCH ×2 (09:33→20:52)
--- NOTE | 2022-06-08 10:59 | P.CNPUL ---
History of Present Illness Consult date: 06/08/22 Requesting physician: Renzo Williamson Reason for consult: dyspnea, COPD Chief complaint: Shortness of breath History of present illness: This is a 71-year-old female patient with a known history of bipolar, schizophrenia, hypertension, hyperlipidemia, diabetes mellitus and chronic obstructive pulmonary disease with an FEV1 value 53% of predicted. She is a former smoker however quit many years ago. She presented to the emergency room yesterday with complaints of increasing shortness of breath cough congestion and phlegm. Chest x-ray shows no acute pulmonary process. White count 8.8. Hemo globin 14.0. Glucose 191. Sodium 141. Potassium 4.5. BUN 15. Creatinine 0.73. Troponin negative times one. ProBNP 58. Pro-calcitonin 0.04. Joshi virus not detected. Influenza screen negative. Review of Systems REVIEW OF SYSTEMS: CONSTITUTIONAL: Denies any recent significant weight loss or weight gain. EYES: Denies change in vision. EARS, NOSE, MOUTH, THROAT: Denies headaches, denies sore throat. CARDIOVASCULAR: Denies chest pain, palpitations or syncopal episodes. RESPIRATORY: Positive for shortness of breath, cough, congestion no hemoptysis. GASTROINTESTINAL: Denies change in appetite, denies abdominal pain GENITOURINARY: Denies hematuria, denies infections. MUSKULOSKELETAL: Denies pain, denies swelling. INTEGUMENTARY: Denies rash, denies eczema. NEUROLOGICAL: Denies recent memory loss, no recent seizure activity. PSYCHIATRIC: Denies anxiety, denies depression. HEMATOLOGIC/LYMPHATIC: Denies anemia, denies enlarged lymph nodes. Past Medical History Past Medical History: Asthma, COPD, Diabetes Mellitus, Hypertension Additional Past Medical History / Comment(s): bipolar, schizo History of Any Multi-Drug Resistant Organisms: None Reported Past Surgical History: Cholecystectomy, Hysterectomy Additional Past Surgical History / Comment(s): lobectomy-right lung, cataract Past Anesthesia/Blood Transfusion Reactions: No Reported Reaction Past Psychological History: Bipolar, Depression, Schizophrenia Smoking Status: Former smoker Past Alcohol Use History: None Reported Past Drug Use History: None Reported Medications and Allergies Home Medications Medication Instructions Recorded Confirmed Type Albuterol Inhaler [Ventolin Hfa 1 - 2 puff INHALATION RT-Q6H PRN 01/22/17 06/07/22 History Inhaler] Albuterol Nebulized [Ventolin 2.5 mg INHALATION RT-Q6H PRN 09/02/18 06/07/22 History Nebulized] FLUoxetine HCL [PROzac] 20 mg PO HS 09/02/18 06/07/22 History lisinopriL [Zestril] 5 mg PO DAILY 09/02/18 06/07/22 History Atorvastatin [Lipitor] 20 mg PO HS 06/07/22 06/07/22 History Fluticasone Propion/Salmeterol 1 puff INHALATION RT-BID 06/07/22 06/07/22 History [Fluticasone-Salmeterol 500-50] metFORMIN HCL 500 mg PO BID 06/07/22 06/07/22 History Allergies Allergy/AdvReac Type Severity Reaction Status Date / Time prednisone Allergy Rash/Hives Verified 06/07/22 12:39 codeine AdvReac Unknown Verified 06/07/22 12:39 Physical Exam Vitals: Vital Signs Temp Pulse Pulse Resp BP BP Pulse Ox 06/08/22 08:00 97.9 F 97 18 126/68 95 06/08/22 07:57 80 06/08/22 07:47 81 06/08/22 04:00 98.0 F 92 19 144/65 96 06/07/22 23:24 98.0 F 113 H 19 144/66 94 L 06/07/22 21:12 76 06/07/22 21:01 72 06/07/22 19:53 98.0 F 86 19 154/80 93 L 06/07/22 16:27 84 06/07/22 16:15 80 06/07/22 14:58 97.6 F 80 16 171/73 95 06/07/22 12:58 76 06/07/22 12:47 74 06/07/22 11:46 20 06/07/22 11:38 97.7 F 87 46 H 126/66 94 L Intake and Output 06/07/22 06/08/22 06/08/22 22:59 06:59 14:59 Other: # Voids 2 Weight 99.79 kg GENERAL EXAM: Alert, pleasant 71-year-old female, on room air, up in a chair, comfortable in no apparent distress. HEAD: Normocephalic. EYES: Normal reaction of pupils, equal size. NOSE: Clear with pink turbinates. THROAT: No erythema or exudates. NECK: No masses, no JVD. CHEST: No chest wall deformity. LUNGS: Equal air entry with no crackles, wheeze, rhonchi or dullness. CVS: S1 and S2 normal with no audible murmur, regular rhythm. ABDOMEN: No hepatosplenomegaly, normal bowel sounds, no guarding or rigidity. SPINE: No scoliosis or deformity SKIN: No rashes CENTRAL NERVOUS SYSTEM: No focal deficits, tone is normal in all 4 extremities. EXTREMITIES: There is no peripheral edema. No clubbing, no cyanosis. Peripheral pulses are intact. Results - Laboratory Findings CBC and BMP: 06/08/22 05:03 06/07/22 12:14 PT/INR, D-dimer PT 9.9 sec (9.0-12.0) 06/07/22 12:14 INR 0.9 (<1.2) 06/07/22 12:14 Abnormal lab findings: Abnormal Labs 06/07/22 06/07/22 06/07/22 12:14 14:33 19:56 VBG pCO2 54 H VBG HCO3 29 H Glucose 153 H POC Glucose (mg/dL) 250 H 06/08/22 06:10 VBG pCO2 VBG HCO3 Glucose POC Glucose (mg/dL) 191 H - Diagnostic Findings Chest x-ray: image reviewed Assessment and Plan Assessment: Acute exacerbation of chronic obstructive pulmonary disease. No evidence of pneumonia. Pro-calcitonin 0.04. No leukocytosis. No fever. Former smoker Hypertension Hyperlipidemia Diabetes mellitus History of bipolar disorder History of schizophrenia. Plan: The patient was seen and evaluated Chest x-ray, medications and labs reviewed Continue DuoNeb inhalations, Symbicort, IV Solu medrol Family stable and on room air Probable discharge in the a.m. We will continue to follow and make further recommendations based on her clinical status I have personally seen and examined the patient, performed the documentation and the assessment and plan as written. Number of minutes spent on the visit: 20.
[2022-06-08 12:30] LABS: Glucose,Whole Blood 215 mg/dL (70-110)
--- NOTE | 2022-06-08 15:43 | P.HPIM ---
History of Present Illness H&P Date: 06/07/22 History and physical dictated Past Medical History Past Medical History: Asthma, COPD, Diabetes Mellitus, Hypertension Additional Past Medical History / Comment(s): bipolar, schizo History of Any Multi-Drug Resistant Organisms: None Reported Past Surgical History: Cholecystectomy, Hysterectomy Additional Past Surgical History / Comment(s): lobectomy-right lung, cataract Past Anesthesia/Blood Transfusion Reactions: No Reported Reaction Past Psychological History: Bipolar, Depression, Schizophrenia Smoking Status: Former smoker Past Alcohol Use History: None Reported Past Drug Use History: None Reported Medications and Allergies Home Medications Medication Instructions Recorded Confirmed Type Albuterol Inhaler [Ventolin Hfa 1 - 2 puff INHALATION RT-Q6H PRN 01/22/17 06/07/22 History Inhaler] Albuterol Nebulized [Ventolin 2.5 mg INHALATION RT-Q6H PRN 09/02/18 06/07/22 History Nebulized] FLUoxetine HCL [PROzac] 20 mg PO HS 09/02/18 06/07/22 History lisinopriL [Zestril] 5 mg PO DAILY 09/02/18 06/07/22 History Atorvastatin [Lipitor] 20 mg PO HS 06/07/22 06/07/22 History Fluticasone Propion/Salmeterol 1 puff INHALATION RT-BID 06/07/22 06/07/22 History [Fluticasone-Salmeterol 500-50] metFORMIN HCL 500 mg PO BID 06/07/22 06/07/22 History Allergies Allergy/AdvReac Type Severity Reaction Status Date / Time prednisone Allergy Rash/Hives Verified 06/07/22 12:39 codeine AdvReac Unknown Verified 06/07/22 12:39 Physical Exam Vitals: Vital Signs Temp Pulse Pulse Resp BP BP Pulse Ox 06/08/22 15:31 79 06/08/22 12:03 80 06/08/22 11:52 80 06/08/22 08:00 97.9 F 97 18 126/68 95 06/08/22 07:57 80 06/08/22 07:47 81 06/08/22 04:00 98.0 F 92 19 144/65 96 06/07/22 23:24 98.0 F 113 H 19 144/66 94 L 06/07/22 21:12 76 06/07/22 21:01 72 06/07/22 19:53 98.0 F 86 19 154/80 93 L 06/07/22 16:27 84 06/07/22 16:15 80 Intake and Output 06/08/22 06/08/22 06/08/22 06:59 14:59 22:59 Other: # Voids 2 Results CBC & Chem 7: 06/08/22 05:03 06/07/22 12:14 Labs: Abnormal Lab Results - Last 24 Hours (Table) 06/07/22 06/08/22 06/08/22 Range/Units 19:56 06:10 12:28 POC Glucose (mg/dL) 250 H 191 H 215 H (70-110) mg/dL Microbiology - Last 24 Hours (Table) 06/07/22 12:14 Blood Culture - Preliminary Blood No Growth after 24 hours 06/07/22 12:14 Blood Culture - Preliminary Blood No Growth after 24 hours 06/07/22 12:55 Gram Stain - Preliminary Sputum Sputum Culture - Preliminary Thrombosis Risk Factor Assmnt - Choose All That Apply Any of the Below Risk Factors Present?: Yes Each Factor Represents 1 point: Abnormal pulmonary function (COPD), Obesity (BMI >25) Each Risk Factor Represents 2 Points: Age 61-74 years Thrombosis Risk Factor Assessment Total Risk Factor Score: 4 Thrombosis Risk Factor Assessment Level: Moderate Risk
--- NOTE | 2022-06-08 15:54 | P.PN ---
Subjective Progress Note Date: 06/08/22 Progress note, date of service 06/08/[address] Williamson Patient seen and evaluated [id number] in the emergency room room #22 ER for overflow to the fourth floor sinus Patient seen by the pulmonary and critical care Dr. Moreira. Patient admitted through the emergency room with the severe shortness of breath progressive with the underlying history of COPD and bronchiectasis. Patient seen today [id number] Reviewed her laboratories. Reviewed the consultation with Dr. Cummins. The bed in the emergency room is very rough to lay down with the bothering her back, she is sitting down on the chair, and we'll be able to ambulate we did the order for ambulation with no need for heparin subcu. Reviewed the laboratories. Hemoglobin A1c ordered but not available yet. WBC 8.8, hemoglobin and hematocrit 14/45.2. She is on monitoring of glucose by POC has been covered with insulin to scale with the CBG has been [id number] [phone] 15. I checked the pro-calcitonin was 0.04 which is normal Patient had negative coronavirus testing and influenza A and B. On the physical exam: Patient conscious alert oriented her daughter at bedside. Head was normocephalic and atraumatic pupil was equal reactive conjunctiva was pink sclera was nonicteric Oropharynx was negative Neck was supple no JVD no thyromegaly no lymphadenopathy trachea midline Chest still has significant wheezes and rhonchi's despite of the bronchodilator and steroid. We'll continue the same treatment Heart regular sinus rhythm with the blood pressure controlled 126/68. Abdomen soft positive bowel sounds no tenderness on the 4 quadrant. Extremities no edema and positive pulses. Psychiatry she had history of bipolar disorder and depression be continued the same medication Neurological: Ambulatory no lateralizing sign. Chest x-ray on admission negative for pneumonia. She had previous computed tomography scan and also resection of the right lower lobe because of the bronchiectasis with the intermittent aches expressed exacerbation and changing in the sputum, Sputum so far normal kendrick. And blood culture was negative. Assessment: Acute COPD exacerbation with bronchitis probable viral in origin currently patient on antibiotic and bronchodilator. History of bipolar disorder and depression and anxiety. Plan: Umber 1 continue the current treatment #2 will follow the recommendation of the pulmonary Dr. Moreira. #3 I did discuss with the patient the current plan with the probability of discharge home tomorrow if she stable per Dr. Moreira opinion. #4 patient will be admitted to the fourth floor [place] when the bed is available so far she is on overflow was holding in the ER Objective - Vital Signs Vital signs: Vital Signs Temp 97.9 F 06/08/22 08:00 Pulse 82 06/08/22 15:42 Resp 18 06/08/22 08:00 BP 126/68 06/08/22 08:00 Pulse Ox 95 06/08/22 08:00 FiO2 Intake & Output 06/07/22 06/08/22 06/08/22 18:59 06:59 18:59 Weight 99.79 kg 99.79 kg Other: # Voids 2 - Labs CBC & Chem 7: 06/08/22 05:03 06/07/22 12:14 Labs: Abnormal Lab Results - Last 24 Hours (Table) 06/07/22 06/08/22 06/08/22 Range/Units 19:56 06:10 12:28 POC Glucose (mg/dL) 250 H 191 H 215 H (70-110) mg/dL Microbiology - Last 24 Hours (Table) 06/07/22 12:14 Blood Culture - Preliminary Blood No Growth after 24 hours 06/07/22 12:14 Blood Culture - Preliminary Blood No Growth after 24 hours 06/07/22 12:55 Gram Stain - Preliminary Sputum Sputum Culture - Preliminary
[2022-06-08 17:21] LABS: Glucose,Whole Blood 285 mg/dL (70-110)
[2022-06-08 20:25] LABS: Glucose,Whole Blood 254 mg/dL (70-110)
[2022-06-08] MEDS: ATORVASTATIN 20 MG TAB PO SCH (20:52)
[2022-06-08] MEDS: FLUoxetine HCL 20 MG CAP PO SCH (20:53)
[2022-06-09] MEDS: ZOLPIDEM 5 MG TAB PO PRN ×2 (00:04→23:42)
[2022-06-09] MEDS: methylPREDNISolone SOD SUCCI 125 MG/2 ML VIAL IV SCH ×4 (05:52→23:39)
[2022-06-09] MEDS: SYMBICORT 160-4.5 MCG INHALER INHALATION SCH ×2 (07:14→20:39)
[2022-06-09] MEDS: IPRATROPIUM-ALBUTEROL 3 ML NEB INHALATION SCH ×4 (07:14→20:39)
[2022-06-09 07:43] LABS: Glucose,Whole Blood 178 mg/dL (70-110)
[2022-06-09] MEDS: lisinopriL 10 MG TAB PO SCH ×2 (08:43→21:33)
[2022-06-09] MEDS: INSULIN ASPART (NovoLOG) 100 UNIT/ML VIAL SQ SCH ×4 (08:43→21:33)
[2022-06-09] MEDS: metFORMIN 500 MG TAB PO SCH ×2 (08:43→17:58)
--- NOTE | 2022-06-09 10:49 | P.PN ---
Subjective Progress Note Date: 06/09/22 Principal diagnosis: Shortness of breath. This is a 71-year-old female patient with a known history of bipolar, schizophrenia, hypertension, hyperlipidemia, diabetes mellitus and chronic obstructive pulmonary disease with an FEV1 value 53% of predicted. She is a former smoker however quit many years ago. She presented to the emergency room yesterday with complaints of increasing shortness of breath cough congestion and phlegm. Chest x-ray shows no acute pulmonary process. White count 8.8. Hemoglobin 14.0. Glucose 191. Sodium 141. Potassium 4.5. BUN 15. Creatinine 0.73. Troponin negative times one. ProBNP 58. Pro-calcitonin 0.04. Joshi virus not detected. Influenza screen negative. Progress note dated 06/09/2022. 71-year-old female seen yesterday in the emergency department, with a COPD exacerbation. She has moderately severe disease with an FEV1 that is 53% of predicted. She also has a history of bipolar disorder, hypertension, hyperlipidemia, diabetes, and of course COPD. Seen today, in room 517. She's on room air. No IV fluids. She is feeling a bit better. No labs today. Chest x-ray from yesterday, shows no active pulmonary disease. Objective - Vital Signs Vital signs: Vital Signs Temp 98.5 F 06/09/22 04:11 Pulse 110 H 06/09/22 08:46 Resp 20 06/09/22 08:46 BP 159/88 06/09/22 08:46 Pulse Ox 98 06/09/22 08:46 FiO2 Intake & Output 06/08/22 06/09/22 06/09/22 18:59 06:59 18:59 Weight 98.5 kg Other: # Voids 1 - Exam No acute distress, oriented 3. No respiratory distress, audible wheezing, or use of accessory muscles. Currently on room air. HEENT examination is grossly unremarkable. Neck supple. Full range of motion. No adenopathy thyromegaly or neck vein distention. Cardiovascular examination reveals regular rhythm rate. S1-S2 normal. No S3 or S4. No discernible murmur noted. Heart rate 110 bpm. Lungs reveal diffuse bilateral expiratory rhonchi and expiratory wheezes. Breath sounds equal. Breath sounds are diminished. No crackles. Saturations 98%. Abdomen soft bowel sounds are heard. No masses or tenderness. Extremities are intact. No cyanosis clubbing or edema. Skin is without rash or lesion. Neurologic examination is brief but nonfocal. - Labs CBC & Chem 7: 06/08/22 05:03 06/07/22 12:14 Labs: Abnormal Lab Results - Last 24 Hours (Table) 06/08/22 06/08/22 06/08/22 Range/Units 05:03 12:28 17:19 POC Glucose (mg/dL) 215 H 285 H (70-110) mg/dL Hemoglobin A1c 6.9 H (0.0-6.0) % 06/08/22 06/09/22 Range/Units 20:24 07:41 POC Glucose (mg/dL) 254 H 178 H (70-110) mg/dL Hemoglobin A1c (0.0-6.0) % Microbiology - Last 24 Hours (Table) 06/07/22 12:14 Blood Culture - Preliminary Blood No Growth after 24 hours 06/07/22 12:14 Blood Culture - Preliminary Blood No Growth after 24 hours 06/07/22 12:55 Gram Stain - Preliminary Sputum Sputum Culture - Preliminary Assessment and Plan Assessment: Acute exacerbation of chronic obstructive pulmonary disease. No evidence of pneumonia. Pro-calcitonin 0.04. Former smoker. Hypertension. Hyperlipidemia. Diabetes mellitus. History of bipolar disorder. History of schizophrenia. Plan: Plan dated 06/09/2022. The patient continues on appropriate medications including Solu-Medrol, updrafts, and Symbicort. Her. Clinically she looks stable. She is a bit better today than she was yesterday. Likely discharge in the near future. Prognosis is guarded. No additional recommendations are made. Time with Patient: Less than 30
[2022-06-09 12:45] LABS: Glucose,Whole Blood 227 mg/dL (70-110)
--- NOTE | 2022-06-09 13:49 | P.PN ---
Subjective Progress Note Date: 06/09/22 Progress note, date of service 06/09/[address] Williamson Patient seen and evaluated [id number] and discussed with the patient Patient still complaining of wheezing and well as shortness of breath as well as cough. Vital sign temperature 97.6 F oral Heart rate 1 12/02/2009 before that with the underlying tachycardia respiratory rate 2016 blood pressure 159/91147/72 oxygen saturation 93 on room air. Patient had insomnia yesterday on the lost night could not sleep and I received defects or requesting medicine for sleeping patient started on Ambien 5 mg at at bedtime when necessary, response she slept very good sleeping during the night and felt rested. On the physical exam: Conscious alert oriented 3 able to communicate oropharynx was negative Neck was supple no JVD no thyromegaly no lymphadenopathy trachea midline. Chest has significant bilateral expiratory wheezes with decreased air entry on the bases. And shortness of breath. Heart tachycardic no chest pain. Abdomen did not have a bowel movement so far but she feels that she may have one today. No edema. Pulses. Assessment: COPD exacerbation, still short of breath significant respiratory wheezing in spite of bronchodilator as well as steroid Tachycardic probably secondary to her pulmonary disease History of bronchiectasis with the excision of the right lower lobe. Mild hypoxemia and hypertension mild. Plan starting cardiac him 30 mg twice a day for attempt to improve her heart rate from the tachycardia. Also her diabetes mellitus has been exacerbating with the use of the steroid and we will be starting Amaryl 2 mg every a.m. after breakfast patient also on insulin to scale as well. In the plan once we have improvement and the clearance from pulmonary we'll discharge the patient Objective - Vital Signs Vital signs: Vital Signs Temp 97.6 F 06/09/22 12:40 Pulse 106 H 06/09/22 12:40 Resp 16 06/09/22 12:40 BP 138/72 06/09/22 12:40 Pulse Ox 93 L 06/09/22 12:40 FiO2 Intake & Output 06/08/22 06/09/22 06/09/22 18:59 06:59 18:59 Weight 98.5 kg Other: # Voids 1 - Labs CBC & Chem 7: 06/08/22 05:03 06/07/22 12:14 Labs: Abnormal Lab Results - Last 24 Hours (Table) 06/08/22 06/08/22 06/08/22 Range/Units 05:03 17:19 20:24 POC Glucose (mg/dL) 285 H 254 H (70-110) mg/dL Hemoglobin A1c 6.9 H (0.0-6.0) % 06/09/22 06/09/22 Range/Units 07:41 12:43 POC Glucose (mg/dL) 178 H 227 H (70-110) mg/dL Hemoglobin A1c (0.0-6.0) % Microbiology - Last 24 Hours (Table) 06/07/22 12:55 Gram Stain - Final Sputum Sputum Culture - Final 06/07/22 12:14 Blood Culture - Preliminary Blood No Growth after 24 hours 06/07/22 12:14 Blood Culture - Preliminary Blood No Growth after 24 hours
[2022-06-09] MEDS: GLIMEPIRIDE 2 MG TAB PO SCH (14:05)
[2022-06-09 17:16] LABS: Glucose,Whole Blood 181 mg/dL (70-110)
[2022-06-09 20:51] LABS: Glucose,Whole Blood 253 mg/dL (70-110)
[2022-06-09] MEDS: FLUoxetine HCL 20 MG CAP PO SCH (21:33)
[2022-06-09] MEDS: ATORVASTATIN 20 MG TAB PO SCH (21:33)
[2022-06-09] MEDS: DILTIAZEM ORAL 30 MG TAB PO SCH (21:33)
--- NOTE | 2022-06-10 06:19 | P.PN ---
Subjective Progress Note Date: 06/10/22 Principal diagnosis: Shortness of breath. This is a 71-year-old female patient with a known history of bipolar, schizophrenia, hypertension, hyperlipidemia, diabetes mellitus and chronic obstructive pulmonary disease with an FEV1 value 53% of predicted. She is a former smoker however quit many years ago. She presented to the emergency room yesterday with complaints of increasing shortness of breath cough congestion and phlegm. Chest x-ray shows no acute pulmonary process. White count 8.8. Hemoglobin 14.0. Glucose 191. Sodium 141. Potassium 4.5. BUN 15. Creatinine 0.73. Troponin negative times one. ProBNP 58. Pro-calcitonin 0.04. Joshi virus not detected. Influenza screen negative. Progress note dated 06/09/2022. 71-year-old female seen yesterday in the emergency department, with a COPD exacerbation. She has moderately severe disease with an FEV1 that is 53% of predicted. She also has a history of bipolar disorder, hypertension, hyperlipidemia, diabetes, and of course COPD. Seen today, in room 517. She's on room air. No IV fluids. She is feeling a bit better. No labs today. Chest x-ray from yesterday, shows no active pulmonary disease. Progress note dated 06/10/2022. 71-year-old female initially seen in the emergency department with a COPD exacerbation. She has moderately severe COPD, with an FEV1 that's 53% of predicted. She also suffers from bipolar disorder, hypertension, hyperlipidemia, and diabetes. Currently, the patient's on room air. No IV fluids. She is resting comfortably, and in no distress. In my opinion, the patient could be considered for discharge home. Blood glucose yesterday was 253. All microbiologic studies are negative. Chest x-ray showed no evidence of acute pulmonary disease. Objective - Vital Signs Vital signs: Vital Signs Temp 97.9 F 06/10/22 04:10 Pulse 91 06/10/22 04:10 Resp 16 06/10/22 04:10 BP 147/82 06/10/22 04:10 Pulse Ox 95 06/10/22 04:10 FiO2 Intake & Output 06/09/22 06/09/22 06/10/22 06:59 18:59 06:59 Output Total 3 Balance -3 Weight 98.5 kg 85 kg Output: Urine 3 Other: Voiding Method Toilet # Voids 1 4 - Exam No acute distress, oriented 3. No respiratory distress, audible wheezing, or use of accessory muscles. Currently on room air. HEENT examination is grossly unremarkable. Neck supple. Full range of motion. No adenopathy thyromegaly or neck vein distention. Cardiovascular examination reveals regular rhythm rate. S1-S2 normal. No S3 or S4. No discernible murmur noted. Heart rate 95 bpm. Lungs reveal mild expiratory wheezes and rhonchi. Breath sounds are improved. Breath sounds equal. Breath sounds are diminished. No crackles. Saturations 95 %. Abdomen soft bowel sounds are heard. No masses or tenderness. Extremities are intact. No cyanosis clubbing or edema. Skin is without rash or lesion. Neurologic examination is brief but nonfocal. - Labs CBC & Chem 7: 06/08/22 05:03 06/07/22 12:14 Labs: Abnormal Lab Results - Last 24 Hours (Table) 06/09/22 06/09/22 06/09/22 Range/Units 07:41 12:43 17:14 POC Glucose (mg/dL) 178 H 227 H 181 H (70-110) mg/dL 06/09/22 Range/Units 20:50 POC Glucose (mg/dL) 253 H (70-110) mg/dL Microbiology - Last 24 Hours (Table) 06/07/22 12:14 Blood Culture - Preliminary Blood No Growth after 48 hours 06/07/22 12:14 Blood Culture - Preliminary Blood No Growth after 48 hours 06/07/22 12:55 Gram Stain - Final Sputum Sputum Culture - Final Assessment and Plan Assessment: Acute exacerbation of chronic obstructive pulmonary disease. No evidence of pneumonia. Pro-calcitonin 0.04. Former smoker. Hypertension. Hyperlipidemia. Diabetes mellitus. History of bipolar disorder. History of schizophrenia. Plan: Plan dated 06/09/2022. The patient continues on appropriate medications including Solu-Medrol, updrafts, and Symbicort. Her. Clinically she looks stable. She is a bit better today than she was yesterday. Likely discharge in the near future. Prognosis is guarded. No additional recommendations are made. Plan dated 06/10/2022. The patient is stable. In my opinion, the patient could be discharged home on prednisone with a burst and taper, starting with 40 mg, a day, for 4 days, reducing the dose by 10 mg every day. In my opinion, the patient is not requiring antibiotic. The patient should resume her regular medications including her Advair, and albuterol inhaler, and albuterol updrafts. Finally, I would add a long-acting muscarinic antagonist, such as Spiriva, Incruse or Tudorza. Prognosis is guarded. Time with Patient: Less than 30
[2022-06-10] MEDS: methylPREDNISolone SOD SUCCI 125 MG/2 ML VIAL IV SCH ×2 (06:31→13:09)
[2022-06-10 07:40] LABS: Glucose,Whole Blood 159 mg/dL (70-110)
[2022-06-10] MEDS: IPRATROPIUM-ALBUTEROL 3 ML NEB INHALATION SCH ×2 (08:05→12:19)
[2022-06-10] MEDS: SYMBICORT 160-4.5 MCG INHALER INHALATION SCH (08:05)
[2022-06-10] MEDS: DILTIAZEM ORAL 30 MG TAB PO SCH (08:36)
[2022-06-10] MEDS: lisinopriL 10 MG TAB PO SCH (08:36)
[2022-06-10] MEDS: GLIMEPIRIDE 2 MG TAB PO SCH (08:36)
[2022-06-10] MEDS: INSULIN ASPART (NovoLOG) 100 UNIT/ML VIAL SQ SCH (08:36)
[2022-06-10] MEDS: metFORMIN 500 MG TAB PO SCH (08:36)
[2022-06-10 11:35] VITALS: BP 151/71; RESP 18; TEMP 97.8
[2022-06-10 11:43] LABS: Glucose,Whole Blood 188 mg/dL (70-110)
[2022-06-10 12:29] VITALS: PULSE 80
--- NOTE | 2022-06-10 13:04 | P.DS ---
Providers Date of admission: 06/07/22 13:30 Expected date of discharge: 06/10/22 Attending physician: Renzo Williamson Consults: 06/07/22 13:59 Consult Physician Urgent Consulting Provider: Isaías Moreira Consult Reason/Comments: COPD exacerbation Do you want consulting provider notified?: Yes Primary care physician: Renzo Williamson Dictation of the discharge summary date of service 06/10/[address] Williamson. Cleared for discharge by Dr. Moreira pulmonary and critical care Admission diagnosis: #1 acute exacerbation of COPD #2 no pneumonia # #3 schizophrenia with bipolar disorder #4 bronchiectasis with the right lower lobe resection. #5 diabetes mellitus type 2 with the hyperglycemia secondary to steroid #6 patient has no ALLERGY to prednisone. #7 hypertension with hypertensive heart disease. Final diagnosis: #1 acute exacerbation of COPD #2 no pneumonia #3 schizophrenia with bipolar disorder with depression #4 underlying history of bronchiectasis #5 diabetes mellitus type 2 with hyperglycemia #6 no ALLERGY to prednisone. #7 hypertension with hypertensive heart disease adjusted medication. #8 bronchitis and the sputum was normal Patient presentation to the ER: Progressive shortness of breath as well as cough and not resolving with progressed over 3 days. No resolution with the treatment in the ER. Hospital course patient admitted to the hospital with consultation of her pulmonary and critical Dr. Mueller patient treated with antibiotic for the underlying bronchitis with a severe cough and wheezing. Patient treated with steroid her pulmonary and critical care and as well as inhalation therapy and bronchodilator followed subsequently today patient improved general condition and the wheezing has been markedly improving and able to [place] normally able to take a shower 12 him herself again. Seen by Dr. Moreira and cleared for discharge. Examination on discharge: Patient is conscious alert oriented 3 ambulatory. Head was normocephalic and atraumatic Oropharynx was negative Neck was supple no JVD no thyromegaly no lymphadenopathy trachea midline. Chest was resolving of the expiratory wheezes and inspiratory wheezes able to Blease normally with normal breath sounds Heart regular sinus rhythm Abdomen is soft positive bowel sounds and she had bowel movement. Extremities Extremities no edema and positive pulses Psychiatry stable general condition Neurology stable general condition. Assessment: Patient stable for discharge home today Follow-up with Dr. Moreira in 2 weeks follow-up with Dr. Shah in 1 week and continued on her home medication added the steroid. Remove ALLERGY to prednisone. Follow-up in the office Plan - Discharge Summary Discharge Rx Participant: No New Discharge Prescriptions: New Diltiazem Oral [Cardizem*] 60 mg PO BID tab Glimepiride [Amaryl] 2 mg PO AC-BRKFST #30 tab lisinopriL [Zestril] 10 mg PO BID tab predniSONE [Deltasone] 40 mg PO DAILY 16 Days tab Continue Albuterol Inhaler [Ventolin Hfa Inhaler] 1 - 2 puff INHALATION RT-Q6H PRN PRN Reason: Shortness Of Breath FLUoxetine HCL [PROzac] 20 mg PO HS Albuterol Nebulized [Ventolin Nebulized] 2.5 mg INHALATION RT-Q6H PRN PRN Reason: Shortness Of Breath Atorvastatin [Lipitor] 20 mg PO HS metFORMIN HCL 500 mg PO BID Fluticasone Propion/Salmeterol [Fluticasone-Salmeterol 500-50] 1 puff INHALATION RT-BID Discontinued lisinopriL [Zestril] 5 mg PO DAILY Discharge Medication List Albuterol Inhaler [Ventolin Hfa Inhaler] 1 - 2 puff INHALATION RT-Q6H PRN 01/22/17 [History] Albuterol Nebulized [Ventolin Nebulized] 2.5 mg INHALATION RT-Q6H PRN 09/02/18 [History] FLUoxetine HCL [PROzac] 20 mg PO HS 09/02/18 [History] Atorvastatin [Lipitor] 20 mg PO HS 06/07/22 [History] Fluticasone Propion/Salmeterol [Fluticasone-Salmeterol 500-50] 1 puff INHALATION RT-BID 06/07/22 [History] metFORMIN HCL 500 mg PO BID 06/07/22 [History] Diltiazem Oral [Cardizem*] 60 mg PO BID tab 06/10/22 [Rx] Glimepiride [Amaryl] 2 mg PO AC-BRKFST #30 tab 06/10/22 [Rx] lisinopriL [Zestril] 10 mg PO BID tab 06/10/22 [Rx] predniSONE [Deltasone] 40 mg PO DAILY 16 Days tab 06/10/22 [Rx] Follow up Appointment(s)/Referral(s): Isaías Moreira DO [Doctor of Osteopathic Medicine] - 07/07/22 2:00 pm Renzo Williamson MD [Primary Care Provider] - 1 Week
== END 2022-06-10 14:54 | disposition home or self-care (01) | DRG 191 ==
LOC: EC 11:06 → 3SCARD 13:30 → 4SSUR 06-08 08:50 → 5NMEDONC 06-08 16:21
PROVIDERS: ADMIT Internal Medicine; ATTEND Internal Medicine
DX: J47.1 Bronchiectasis with (acute) exacerbation (principal); Z68.41 Body mass index [BMI] 40.0-44.9, adult; F25.0 Schizoaffective disorder, bipolar type; I11.9 Hypertensive heart disease without heart failure; E11.65 Type 2 diabetes mellitus with hyperglycemia; T38.0X5A Adverse effect of glucocorticoids and synthetic analogues, initial encounter; K42.9 Umbilical hernia without obstruction or gangrene; F41.9 Anxiety disorder, unspecified; K43.9 Ventral hernia without obstruction or gangrene; R00.0 Tachycardia, unspecified; G47.00 Insomnia, unspecified; R09.02 Hypoxemia; E78.5 Hyperlipidemia, unspecified; Z20.822 Contact with and (suspected) exposure to COVID-19; Z87.891 Personal history of nicotine dependence; Z79.899 Other long term (current) drug therapy; Z79.84 Long term (current) use of oral hypoglycemic drugs; Z88.5 Allergy status to narcotic agent; Z90.2 Acquired absence of lung [part of]; Z87.09 Personal history of other diseases of the respiratory system
CPT/HCPCS: 12001; 36415; 71046; 80053; 82803; 83036; 83605; 83735; 83880; 84145; 84484; 85025; 85610; 85730; 87040; 87070; 87205; 87502; 87635; 90471; 93005; 94640; 94760; 96374; 96375; 96376; 99291

== ENCOUNTER → 2022-11-15 | Outpatient (CLI) | payer MEDICARE, OTHER ==
--- NOTE | 2022-11-16 19:28 | MM ---
Reason for Exam: Screening (asymptomatic). Last screening mammogram was performed 12 month(s) ago. Patient History: Menarche at age 13. First Full-Term at age 17. Left ovary removed at age 51. Right ovary removed at age 51. Hysterectomy at age 51. Postmenopausal. Risk Values: Janae 5 year model risk: 1.3%. NCI Lifetime model risk: 3.5%. Prior Study Comparison: 06/13/2019 Bilateral Screening Mammogram, [facility]. 09/19/2020 Bilateral Screening Mammogram, [facility]. 11/13/2021 Bilateral MG 3D screening mammo w/cad, [facility]. Tissue Density: There are scattered fibroglandular densities. Findings: Analyzed By CAD. Chronic nodularity on the left. There is no suspicious group of microcalcifications or new suspicious mass in either breast. Overall Assessment: Benign, BI-RAD 2 Management: Screening Mammogram of both breasts in 1 year. . Patient should continue monthly self-breast exams. A clinical breast exam by your physician is recommended on an annual basis. This exam should not preclude additional follow-up of suspicious palpable abnormalities. Note on Janae scores and lifetime risk: 1. A Janae score greater than 3% is considered moderate risk. If this is the case, consider specialist referral to assess eligibility for a risk reducing agent. 2. If overall lifetime risk for the development of breast cancer is 20% or higher, the patient may qualify for future screening with alternating mammogram and breast MRI. Electronically signed and approved by: Alfie Pang M.D. Radiologist
== END | disposition home or self-care (01) ==
LOC: RADMAMWWP 13:08
PROVIDERS: ATTEND Internal Medicine
DX: Z12.31 Encounter for screening mammogram for malignant neoplasm of breast (principal); Z78.0 Asymptomatic menopausal state
CPT/HCPCS: 77063; 77067

== ENCOUNTER → 2022-11-16 | Outpatient (CLI) | payer MEDICARE, OTHER ==
[2022-11-16 16:26] LABS: Basophils # (A) 0.06 X 10*3/uL (0.00-0.10); Basophils % (A) 0.8 %; Eosinophils # (A) 0.19 X 10*3/uL (0.04-0.35); Eosinophils % (A) 2.5 %; HGB 13.4 g/dL (12.0-15.0); Immature Grans, Automated 0.5 %; Lymphocytes # (A) 1.74 X 10*3/uL (0.90-5.00); Lymphocytes % (A) 22.7 %; MCH 28.7 pg (27.0-32.0); MCHC 31.2 g/dL (32.0-37.0); MCV 92.1 fL (80.0-97.0); Mean Platelet Volume 9.7 fL (9.5-12.2); Monocytes # (A) 0.57 X 10*3/uL (0.20-1.00); Monocytes % (A) 7.5 %; NRBC Per 100 WBC 0 /100 WBCS (0.0-0.0); Neutrophils # (A) 5.05 X 10*3/uL (1.80-7.70); Platelet Count 251 X 10*3/uL (140-440); RBC 4.67 X 10*6/uL (4.10-5.20); RDW 13.6 % (11.5-14.5); WBC 7.65 X 10*3/uL (4.50-10.00)
[2022-11-16 16:39] LABS: ALT 19 U/L (8-44); AST 16 U/L (13-35); Albumin 3.9 g/dL (3.8-4.9); Albumin/Globulin Ratio 1.49 (1.60-3.17); Alkaline Phosphatase 81 U/L (41-126); BUN/Creat Ratio 20.02 Ratio (12.00-20.00); Calcium 9.2 mg/dL (8.7-10.3); Carbon Dioxide 26.1 mmol/L (20.0-27.5); Chloride 105 mmol/L (96-109); Creatine Kinase 73 U/L (26-186); Globulin 2.6 g/dL (1.6-3.3); Glucose 120 mg/dL (70-110); Magnesium 2.2 mg/dL (1.5-2.4); Phosphorus 3.8 mg/dL (2.4-5.1); Potassium 4.6 mmol/L (3.5-5.5); Sodium 143 mmol/L (135-145); Total Protein 6.6 g/dL (6.2-8.2)
[2022-11-16 16:53] LABS: Chol/HDL Ratio 3.97 Ratio; LDL Cholesterol,Calculated 86.8 mg/dL (0.0-131.0)
[2022-11-16 17:00] LABS: Appearance,Urine Clear (Clear); Bilirubin,Urine Negative (Negative); Blood,Urine Small (Negative); Color,Urine Yellow (Yellow); Ketones,Urine Negative (Negative); Nitrite,Urine Negative (Negative); PH, Urine 5.5 (5.0-8.0); Specific Gravity,Urine 1.021 (1.001-1.030)
[2022-11-16 17:05] LABS: Erythrocyte Sedimentation Rate 42 mm/Hr (0-30)
[2022-11-16 17:09] LABS: Bacteria,Urine None Seen /HPF (None Seen)
== END | disposition home or self-care (01) ==
LOC: LABWHC1 10:18
PROVIDERS: ATTEND Internal Medicine
DX: Z00.00 Encounter for general adult medical examination without abnormal findings (principal); I10 Essential (primary) hypertension; D64.9 Anemia, unspecified; J44.9 Chronic obstructive pulmonary disease, unspecified; E78.5 Hyperlipidemia, unspecified; E11.65 Type 2 diabetes mellitus with hyperglycemia; E03.9 Hypothyroidism, unspecified; E66.9 Obesity, unspecified; E55.9 Vitamin D deficiency, unspecified; M81.0 Age-related osteoporosis without current pathological fracture; N20.0 Calculus of kidney
CPT/HCPCS: 36415; 80053; 80061; 81001; 82043; 82306; 82550; 82570; 83036; 83735; 83970; 84100; 84443; 84550; 85025; 85652; 86140

== ENCOUNTER → 2023-05-12 | Outpatient (CLI) | payer MEDICARE, OTHER ==
--- NOTE | 2023-05-12 17:00 | XR ---
EXAMINATION TYPE: XR Hip Complete RT, XR sacroiliac joint comp BILAT DATE OF EXAM: 05/12/2023 4:55 PM INDICATION: Patient age:Female; 72 years old; Reason for study: M25.551 pain right hip difficulty walking; PHH. COMPARISON: None. TECHNIQUE: The right hip was examined in the frontal and lateral projections .Both sacroiliac joints were examined in 3 projections. FINDINGS: No evidence of any acute osseous pathology, joint dislocation, or soft tissue swelling. No significant joint space narrowing or spurring of the right hip. Both SI joints are intact with mild d egenerative changes. Right-sided pelvic phleboliths identified. Degenerative changes of the visualize d lower lumbar spine. IMPRESSION: 1. No acute osseous pathology. 2. Mild degenerative changes of both SI joints.
== END | disposition home or self-care (01) ==
LOC: RADXRMAIN 16:16
PROVIDERS: ATTEND Internal Medicine
DX: M46.1 Sacroiliitis, not elsewhere classified (principal); M25.551 Pain in right hip
CPT/HCPCS: 72202; 73502

== ENCOUNTER 2023-07-29 23:26 | Emergency (ER) | payer MEDICARE, OTHER ==
[2023-07-29 23:37] VITALS: RESP 18; TEMP 98.3
[2023-07-29] MEDS ORDERED: KETOROLAC 15 MG/ML 1 ML VIAL IVP STA (23:53)
--- NOTE | 2023-07-30 00:24 | ED ---
General Adult HPI - General Chief complaint: Extremity Injury, Lower Stated complaint: Ankle injury Time Seen by Provider: 07/29/23 23:33 Source: patient, EMS, RN notes reviewed, old records reviewed Mode of arrival: EMS Limitations: no limitations - History of Present Illness Initial comments: 72-year-old female presents with ground-level fall. Patient slipped onto the ice, falling onto the right ankle. She states she heard a popping noise and sensation and immediate pain. No head or neck trauma. Patient was unable to bear weight and was transported by paramedics. - Related Data Home Medications Medication Instructions Recorded Confirmed Albuterol Inhaler [Ventolin Hfa 1 - 2 puff INHALATION RT-Q6H PRN 01/22/17 06/07/22 Inhaler] Albuterol Nebulized [Ventolin 2.5 mg INHALATION RT-Q6H PRN 09/02/18 06/07/22 Nebulized] FLUoxetine HCL [PROzac] 20 mg PO HS 09/02/18 06/07/22 Atorvastatin [Lipitor] 20 mg PO HS 06/07/22 06/07/22 Fluticasone Propion/Salmeterol 1 puff INHALATION RT-BID 06/07/22 06/07/22 [Fluticasone-Salmeterol 500-50] metFORMIN HCL 500 mg PO BID 06/07/22 06/07/22 Previous Rx's Medication Instructions Recorded Diltiazem Oral [Cardizem*] 60 mg PO BID tab 06/10/22 Glimepiride [Amaryl] 2 mg PO AC-BRKFST #30 tab 06/10/22 lisinopriL [Zestril] 10 mg PO BID tab 06/10/22 predniSONE [Deltasone] 40 mg PO DAILY 16 Days tab 06/10/22 Allergies Allergy/AdvReac Type Severity Reaction Status Date / Time codeine AdvReac Unknown Verified 07/29/23 23:35 Review of Systems ROS Statement: Those systems with pertinent positive or pertinent negative responses have been documented in the HPI. ROS Other: All systems not noted in ROS Statement are negative. Past Medical History Past Medical History: Asthma, COPD, Diabetes Mellitus, Hypertension Additional Past Medical History / Comment(s): bipolar, schizo History of Any Multi-Drug Resistant Organisms: None Reported Past Surgical History: Cholecystectomy, Hysterectomy Additional Past Surgical History / Comment(s): lobectomy-right lung, cataract Past Anesthesia/Blood Transfusion Reactions: No Reported Reaction Past Psychological History: Bipolar, Depression, Schizophrenia Smoking Status: Former smoker Past Alcohol Use History: None Reported Past Drug Use History: None Reported General Exam General appearance: alert, in no apparent distress Head exam: Present: atraumatic, normocephalic Eye exam: Present: normal appearance, PERRL ENT exam: Present: normal exam Neck exam: Present: normal inspection. Absent: tenderness, meningismus Respiratory exam: Present: normal lung sounds bilaterally. Absent: respiratory distress, wheezes Cardiovascular Exam: Present: regular rate, normal rhythm GI/Abdominal exam: Present: soft. Absent: distended, tenderness, guarding Extremities exam: Present: tenderness, joint swelling (Ecchymosis and swelling of the medial malleolus on the right. Distal pulses intact, normal sensation. No gross deformity.). Absent: full ROM Neurological exam: Present: alert Psychiatric exam: Present: normal affect, normal mood Course Vital Signs 07/29/23 23:30 Temperature 98.3 F Pulse Rate 95 Respiratory 18 Rate Blood Pressure 193/98 O2 Sat by Pulse 96 Oximetry - Reevaluation(s) Reevaluation #1: 07/30/23 00:21 Patient states that she has a walker at home. Procedures - Orthopedic Splinting/Casting Injury #1 Side: right Lower Extremity Immobilizer: posterior splint, stirrup splint Other Orthopedic Equipment: walker Medical Decision Making - Medical Decision Making Was pt. sent in by a medical professional or institution (JANET Burnett, PSYCHOLOGICAL AIDE, urgent care, hospital, or half-way...) When possible be specific @ -No Did you speak to anyone other than the patient for history (EMS, parent, family, police, friend...)? What history was obtained from this source @ -No Did you review nursing and triage notes (agree or disagree)? Why? @ -I reviewed and agree with nursing and triage notes Were old charts reviewed (outside hosp., previous admission, EMS record, old EKG, old radiological studies, urgent care reports/EKG's, half-way records)? Report findings @ -No old charts were reviewed Differential Diagnosis (chest pain, altered mental status, abdominal pain women, abdominal pain men, vaginal bleeding, weakness, fever, dyspnea, syncope, headache, dizziness, GI bleed, back pain, seizure, CVA, palpatations, mental health, musculoskeletal)? @ -[Differential Musculoskeletal Muscular strain, contusion, ligament sprain, fracture, arthritis, septic arthritis, bursitis, cellulitis, muscle spasm, nerve compression, DVT, arterial occlusion, herpes zoster, electrolyte abnormality, tumor.... This is not meant to be in all inclusive list EKG interpreted by me (3pts min.). @ -As above X-rays interpreted by me (1pt min.). @ -X-ray of the ankle shows a medial malleolus fracture with disruption of the ankle mortise CT interpreted by me (1pt min.). @ -None done U/S interpreted by me (1pt. min.). @ -None done What testing was considered but not performed or refused? (CT, X-rays, U/S, labs)? Why? @ -None What meds were considered but not given or refused? Why? @ -None Did you discuss the management of the patient with other professionals (professionals i.e. , PA, PSYCHOLOGICAL AIDE, lab, RT, psych nurse, social services analyst, dross skimmer, teacher, safety patrol officer, piano case maker)? Give summary @ -No Was smoking cessation discussed for >3mins.? @ -No Was critical care preformed (if so, how long)? @ -No Were there social determinants of health that impacted care today? How? (Homelessness, low income, unemployed, alcoholism, drug addiction, transportation, low edu. Level, literacy, decrease access to med. care, usp, rehab)? @ -No Was there de-escalation of care discussed even if they declined (Discuss DNR or withdrawal of care, Hospice)? DNR status @ -No What co-morbidities impacted this encounter? (DM, HTN, Smoking, COPD, CAD, Cancer, CVA, ARF, Chemo, Hep., AIDS, mental health diagnosis, sleep apnea, morbid obesity)? @ -None Was patient admitted / discharged? Hospital course, mention meds given and route, prescriptions, significant lab abnormalities, going to OR and other pertinent info. @ -[72-year-old female with fall on ice, right ankle fracture subluxation. On exam the ankle is ecchymotic and swollen without open fracture, distal pulses are intact. There is no significant angulation on exam. X-ray confirms fracture with disruption of the ankle mortise. Patient is placed in a posterior and stirrup splint. Her pain is minimal and required only Toradol in the emergency department. She has a walker at home. She is instructed to ice and elevate the extremity and follow-up with orthopedics. Undiagnosed new problem with uncertain prognosis? @ -No Drug Therapy requiring intensive monitoring for toxicity (Heparin, Nitro, Insulin, Cardizem)? @ -No Were any procedures done? @ -No Diagnosis/symptom? @ -[Ankle fracture Acute, or Chronic, or Acute on Chronic? @ -Acute Uncomplicated (without systemic symptoms) or Complicated (systemic symptoms)? @ -[default Side effects of treatment? @ -No Exacerbation, Progression, or Severe Exacerbation? @ -No Poses a threat to life or bodily function? How? (Chest pain, [place], [place], pneumonia, PE, COPD, DKA, ARF, appy, cholecystitis, CVA, Diverticulitis, Homicidal, Suicidal, threat to staff... and all critical care pts) @ -No Disposition Clinical Impression: Fracture of ankle, Ankle sprain Disposition: HOME SELF-CARE Condition: Fair Instructions (If sedation given, give patient instructions): Ankle Fracture (ED), Ankle Sprain (ED) Additional Instructions: Please ice and elevate the ankle. Please use your walker. Take Tylenol and Motrin for pain. Is patient prescribed a controlled substance at d/c from ED?: No Referrals: Renzo Williamson MD [Primary Care Provider] - 1-2 days Arvind Woods MD [Medical Doctor] - 1-2 days Time of Disposition: 00:23
--- NOTE | 2023-07-30 00:29 | XR ---
EXAM: XR Right Ankle Complete, 3 or More Views CLINICAL HISTORY: ITS.REASON XR Reason: fall TECHNIQUE: Frontal, lateral and oblique views of the right ankle. COMPARISON: No previous studies. FINDINGS: Bones/joints: Acute transverse fracture of the medial malleolus. Mild to moderate osteoarthritic changes about the right ankle joint. 0.5 cm posterior spur. 0.7 cm anterior spur. Widening of the medial ankle mortise and inversion at the ankle joint. Heel spurs. No dislocation. Soft tissues: Unremarkable. IMPRESSION: 1. Acute transverse fracture of the medial malleolus. 2. Eversion of the right ankle joint. 3. Widening of the medial aspect of the right ankle mortise. 4. MRI imaging of the right ankle joint is suggested for follow-up to assess for ligamentous/tendinous abnormalities.
[2023-07-30 01:16] VITALS: BP 169/89; PULSE 80
== END 2023-07-30 01:04 | disposition home or self-care (01) ==
LOC: EC 23:26
DX: S82.891A Other fracture of right lower leg, initial encounter for closed fracture (principal); I10 Essential (primary) hypertension; J44.89 Other specified chronic obstructive pulmonary disease; E11.9 Type 2 diabetes mellitus without complications; F31.9 Bipolar disorder, unspecified; Z79.51 Long term (current) use of inhaled steroids; Z79.84 Long term (current) use of oral hypoglycemic drugs; Z79.899 Other long term (current) drug therapy; Z87.891 Personal history of nicotine dependence; Z88.5 Allergy status to narcotic agent; Z90.49 Acquired absence of other specified parts of digestive tract; W01.0XXA Fall on same level from slipping, tripping and stumbling without subsequent striking against object, initial encounter
CPT/HCPCS: 73610; 99284; 96374; 29515; J1885

== ENCOUNTER 2023-08-02 15:34 | Observation (INO) | payer MEDICARE, OTHER ==
--- NOTE | 2023-08-02 16:09 | ED ---
General Adult HPI - General Source: patient, family, RN notes reviewed Mode of arrival: wheelchair Limitations: no limitations <Aby Aleman - Last Filed: 08/02/23 18:52> <Cristi Luna - Last Filed: 08/02/23 19:29> - General Chief complaint: Extremity Injury, Lower Stated complaint: Right Ankle injury Time Seen by Provider: 08/02/23 15:51 - History of Present Illness Initial comments: 72-year-old female presents to the emergency department for left ankle surgery. Patient broke her ankle on . She [facility] up [facility] and there was concern with the patient being able to care for herself at home after surgery. She was sent in by Dr. Shah for surgery and rehab post surgery. Patient reports that she has been taking ibuprofen for the pain during the day and Vance at night. She has been managing well on this. (Aby Aleman) - Related Data Home Medications Medication Instructions Recorded Confirmed Albuterol Inhaler [Ventolin Hfa 1 - 2 puff INHALATION RT-Q6H PRN 01/22/17 06/07/22 Inhaler] Albuterol Nebulized [Ventolin 2.5 mg INHALATION RT-Q6H PRN 09/02/18 06/07/22 Nebulized] FLUoxetine HCL [PROzac] 20 mg PO HS 09/02/18 06/07/22 Atorvastatin [Lipitor] 20 mg PO HS 06/07/22 06/07/22 Fluticasone Propion/Salmeterol 1 puff INHALATION RT-BID 06/07/22 06/07/22 [Fluticasone-Salmeterol 500-50] metFORMIN HCL 500 mg PO BID 06/07/22 06/07/22 Previous Rx's Medication Instructions Recorded Diltiazem Oral [Cardizem*] 60 mg PO BID tab 06/10/22 Glimepiride [Amaryl] 2 mg PO AC-BRKFST #30 tab 06/10/22 lisinopriL [Zestril] 10 mg PO BID tab 06/10/22 predniSONE [Deltasone] 40 mg PO DAILY 16 Days tab 06/10/22 HYDROcodone/APAP 5-325MG [Vance 1 tab PO Q6HR PRN #12 tab 01/27/24 5-325] Ibuprofen [Motrin] 600 mg PO Q8HR PRN #24 tab 07/30/23 Allergies Allergy/AdvReac Type Severity Reaction Status Date / Time codeine AdvReac Unknown Verified 07/29/23 23:35 Review of Systems ROS Other: All systems not noted in ROS Statement are negative. <Aby Aleman - Last Filed: 08/02/23 18:52> ROS Other: All systems not noted in ROS Statement are negative. <Cristi Luna - Last Filed: 08/02/23 19:29> ROS Statement: Those systems with pertinent positive or pertinent negative responses have been documented in the HPI. Past Medical History Past Medical History: Asthma, COPD, Diabetes Mellitus, Hypertension Additional Past Medical History / Comment(s): bipolar, schizo History of Any Multi-Drug Resistant Organisms: None Reported Past Surgical History: Cholecystectomy, Hysterectomy Additional Past Surgical History / Comment(s): lobectomy-right lung, cataract Past Anesthesia/Blood Transfusion Reactions: No Reported Reaction Past Psychological History: Bipolar, Depression, Schizophrenia Smoking Status: Former smoker Past Alcohol Use History: None Reported Past Drug Use History: None Reported <Aby Aleman - Last Filed: 08/02/23 18:52> General Exam Limitations: no limitations General appearance: alert, in no apparent distress Head exam: Present: atraumatic, normocephalic, normal inspection Eye exam: Present: normal appearance, PERRL, EOMI. Absent: scleral icterus, conjunctival injection, periorbital swelling Respiratory exam: Present: normal lung sounds bilaterally. Absent: respiratory distress, wheezes, rales, rhonchi, stridor Cardiovascular Exam: Present: regular rate, normal rhythm, normal heart sounds. Absent: systolic murmur, diastolic murmur, rubs, gallop, clicks Extremities exam: Present: other (Short leg splint in place to the right lower extremity, normal capillary refill). Absent: full ROM Back exam: Present: normal inspection Neurological exam: Present: alert, oriented X3 Psychiatric exam: Present: normal affect, normal mood Skin exam: Present: warm, dry, intact, normal color. Absent: rash <Aby Aleman - Last Filed: 08/02/23 18:52> Course Vital Signs 08/02/23 15:39 Temperature 98.2 F Pulse Rate 90 Respiratory 20 Rate Blood Pressure 172/83 O2 Sat by Pulse 99 Oximetry Medical Decision Making - Lab Data Result diagrams: 08/02/23 16:35 08/02/23 16:35 <Aby Aleman - Last Filed: 08/02/23 18:52> - Lab Data Result diagrams: 08/02/23 16:35 08/02/23 16:35 <Cristi Luna - Last Filed: 08/02/23 19:29> - Medical Decision Making Was pt. sent in by a medical professional or institution (, PA, MACHINE SILK SCREEN PRINTER, urgent care, hospital, or alf...) When possible be specific @ -[facility] Did you speak to anyone other than the patient for history (EMS, parent, family, police, friend...)? What history was obtained from this source @ -No Did you review nursing and triage notes (agree or disagree)? Why? @ -I reviewed and agree with nursing and triage notes Were old charts reviewed (outside hosp., previous admission, EMS record, old EKG, old radiological studies, urgent care reports/EKG's, alf records)? Report findings @ -No old charts were reviewed Differential Diagnosis (chest pain, altered mental status, abdominal pain women, abdominal pain men, vaginal bleeding, weakness, fever, dyspnea, syncope, headache, dizziness, GI bleed, back pain, seizure, CVA, palpatations, mental health, musculoskeletal)? @ -Differential Musculoskeletal Muscular strain, contusion, ligament sprain, fracture, arthritis, septic arthritis, bursitis, cellulitis, muscle spasm, nerve compression, DVT, arterial occlusion, herpes zoster, electrolyte abnormality, tumor.... This is not meant to be in all inclusive list EKG interpreted by me (3pts min.). @ -EKG at 1805 shows sinus rhythm rate 82,OK 142, QRS 92 X-rays interpreted by me (1pt min.). @ -None done CT interpreted by me (1pt min.). @ -None done U/S interpreted by me (1pt. min.). @ -None done What testing was considered but not performed or refused? (CT, X-rays, U/S, labs)? Why? @ -X-rays considered, patient had x-rays performed at [facility] today. What meds were considered but not given or refused? Why? @ -None Did you discuss the management of the patient with other professionals (pr ofessionals i.e. , PA, MACHINE SILK SCREEN PRINTER, lab, RT, psych nurse, executive secretary social welfare, network operations center technician, teacher, community relations officer, case planner)? Give summary @ -Initially discussed with patient's primary care provider, Dr. Merino who declines admission and states that she should be admitted to orthopedics. Case was then discussed with Dr. Shah with [facility] who saw the patient today. He states that he does not have admission privileges, the patient can be admitted to Dr. Woods. He states that he spoke with him earlier and he is agreeable to this. Case discussed with Dr. Woods who is accepting of the admission. Was smoking cessation discussed for >3mins.? @ -No Was critical care preformed (if so, how long)? @ -No Were there social determinants of health that impacted care today? How? (Homelessness, low income, unemployed, alcoholism, drug addiction, transportation, low edu. Level, literacy, decrease access to med. care, long-term, rehab)? @ -Living alone cannot take care of herself after surgery Was there de-escalation of care discussed even if they declined (Discuss DNR or withdrawal of care, Hospice)? DNR status @ -No What co-morbidities impacted this encounter? (DM, HTN, Smoking, COPD, CAD, Cancer, CVA, ARF, Chemo, Hep., AIDS, mental health diagnosis, sleep apnea, morbid obesity)? @ -None Was patient admitted / discharged? Hospital course, mention meds given and route, prescriptions, significant lab abnormalities, going to OR and other pertinent info. @ -Admitted. Patient was sent in this department by [facility], Dr. Shah. There is concerns for the patient caring for herself after surgery. Laboratory studies obtained. CBC shows WBC 8.9, hemoglobin 13.2, hematocrit 40.9, platelets 264; coagulation studies show PT 9.8, INR 0.9, AP TT 18.7; CMP shows sodium 142, potassium 4.7, B1, 31, creatinine 1.25. Case was discussed with patient's primary care provider who was not willing to accept the admission as he believes patient should be admitted to orthopedics. He is going to consult on the patient for surgical clearance. Case was discussed then with Dr. Shah, the patient's orthopedic provider. He states that he does not have admission privileges and that his colleague, Dr. Woods would be willing to take the admission. Discussed this with Dr. Woods who is agreeable to this. Patient stable at time of admission. Case discussed with my attending, Dr. Luna. Undiagnosed new problem with uncertain prognosis? @ -No Drug Therapy requiring intensive monitoring for toxicity (Heparin, Nitro, Insulin, Cardizem)? @ -No Were any procedures done? @ -No Diagnosis/symptom? @ -Right ankle fracture Acute, or Chronic, or Acute on Chronic? @ -acute Uncomplicated (without systemic symptoms) or Complicated (systemic symptoms)? @ -uncomplicated Side effects of treatment? @ -No Exacerbation, Progression, or Severe Exacerbation? @ -No Poses a threat to life or bodily function? How? (Chest pain, USA, DE, pneumonia, PE, COPD, DKA, ARF, appy, cholecystitis, CVA, Diverticulitis, Homicidal, Suicidal, threat to staff... and all critical care pts) @ -No (Aby Aleman) - Lab Data Lab Results 08/02/23 08/02/23 08/02/23 Range/Units 16:35 16:35 16:35 WBC 8.9 (3.8-10.6) k/uL RBC 4.40 (3.80-5.40) m/uL Hgb 13.2 (11.4-16.0) gm/dL Hct 40.9 (34.0-46.0) % MCV 93.1 (80.0-100.0) fL MCH 30.1 (25.0-35.0) pg MCHC 32.4 (31.0-37.0) g/dL RDW 13.4 (11.5-15.5) % Plt Count 264 (150-450) k/uL MPV 7.4 Neutrophils % 73 % Lymphocytes % 18 % Monocytes % 5 % Eosinophils % 2 % Basophils % 1 % Neutrophils # 6.5 (1.3-7.7) k/uL Lymphocytes # 1.6 (1.0-4.8) k/uL Monocytes # 0.5 (0-1.0) k/uL Eosinophils # 0.2 (0-0.7) k/uL Basophils # 0.1 (0-0.2) k/uL PT 9.8 L (10.0-12.5) sec INR 0.9 (<1.2) APTT 18.7 L (22.0-30.0) sec Sodium 142 (137-145) mmol/L Potassium 4.7 (3.5-5.1) mmol/L Chloride 107 (98-107) mmol/L Carbon Dioxide 23 (22-30) mmol/L Anion Gap 12 mmol/L BUN 31 H (7-17) mg/dL Creatinine 1.25 H (0.52-1.04) mg/dL Est GFR (CKD-EPI)AfAm 50 (>60 ml/min/1.73 sqM) Est GFR (CKD-EPI)NonAf 43 (>60 ml/min/1.73 sqM) Glucose 121 H (74-99) mg/dL Calcium 10.8 H (8.4-10.2) mg/dL Total Bilirubin 0.5 (0.2-1.3) mg/dL AST 25 (14-36) U/L ALT 23 (4-34) U/L Alkaline Phosphatase 76 (38-126) U/L Total Protein 7.2 (6.3-8.2) g/dL Albumin 4.1 (3.5-5.0) g/dL Disposition Is patient prescribed a controlled substance at d/c from ED?: No <Aby Aleman - Last Filed: 08/02/23 18:52> Is patient prescribed a controlled substance at d/c from ED?: No Time of Disposition: 19:19 <Cristi Luna - Last Filed: 08/02/23 19:29> Clinical Impression: Closed right ankle fracture Disposition: ADMITTED IP TO THIS HOSP Condition: Stable Referrals: Renzo Williamson MD [Primary Care Provider] - 1-2 days
[2023-08-02] MEDS: IBUPROFEN 600 MG TAB PO STA (16:35)
[2023-08-02 17:12] LABS: Basophils # (A) 0.1 k/uL (0-0.2); Basophils % (A) 1 %; Eosinophils # (A) 0.2 k/uL (0-0.7); Eosinophils % (A) 2 %; HCT 40.9 % (34.0-46.0); HGB 13.2 gm/dL (11.4-16.0); Lymphocytes # (A) 1.6 k/uL (1.0-4.8); Lymphocytes % (A) 18 %; MCH 30.1 pg (25.0-35.0); MCHC 32.4 g/dL (31.0-37.0); MCV 93.1 fL (80.0-100.0); Mean Platelet Volume 7.4; Monocytes # (A) 0.5 k/uL (0-1.0); Monocytes % (A) 5 %; Neutrophils # (A) 6.5 k/uL (1.3-7.7); Neutrophils % (A) 73 %; Platelet Count 264 k/uL (150-450); RDW 13.4 % (11.5-15.5); WBC 8.9 k/uL (3.8-10.6)
[2023-08-02 17:22] LABS: ALT 23 U/L (4-34); AST 25 U/L (14-36); African American GFR (CKD) 50 (>60 ml/min/1.73 sqM); Albumin 4.1 g/dL (3.5-5.0); Alkaline Phosphatase 76 U/L (38-126); Anion Gap 12 mmol/L; Blood Urea Nitrogen 31 mg/dL (7-17); Calcium 10.8 mg/dL (8.4-10.2); Carbon Dioxide 23 mmol/L (22-30); Chloride 107 mmol/L (98-107); Glucose 121 mg/dL (74-99); Non-African American GFR(CKD) 43 (>60 ml/min/1.73 sqM); Potassium 4.7 mmol/L (3.5-5.1); Sodium 142 mmol/L (137-145); Total Bilirubin 0.5 mg/dL (0.2-1.3); Total Protein 7.2 g/dL (6.3-8.2)
[2023-08-02 17:28] LABS: INR 0.9 (<1.2); Prothrombin Time 9.8 sec (10.0-12.5)
[2023-08-02 17:39] LABS: Partial Thromboplastin Time 18.7 sec (22.0-30.0)
[2023-08-02] MEDS ORDERED: NALOXONE 0.4 MG/ML 1 ML VIAL IV PRN (18:36)
[2023-08-02] MEDS ORDERED: DEXTROSE 50% SYRINGE 50 ML IVP PRN ×2 (18:56)
[2023-08-02] MEDS: SODIUM CHLORIDE 0.9% 500 ML 500 ML IV ONE (19:44)
[2023-08-02] MEDS: MORPHINE SULFATE 4 MG/ML SYRINGE IV PRN (19:47)
[2023-08-02 21:54] LABS: Glucose,Whole Blood 86 mg/dL (70-110)
[2023-08-02] MEDS: INSULIN ASPART (NovoLOG) 100 UNIT/ML VIAL SQ SCH (21:55)
[2023-08-03 07:10] LABS: Glucose,Whole Blood 108 mg/dL (70-110)
[2023-08-03] MEDS ORDERED: traZODone HCL 50 MG TAB PO PRN (09:30)
[2023-08-03] MEDS: GLIMEPIRIDE 2 MG TAB PO SCH (10:44)
[2023-08-03] MEDS: FLUoxetine HCL 20 MG CAP PO SCH (10:44)
[2023-08-03] MEDS: lisinopriL 10 MG TAB PO SCH (10:44)
[2023-08-03] MEDS: ATORVASTATIN 20 MG TAB PO SCH (10:44)
--- NOTE | 2023-08-03 11:14 | US ---
EXAMINATION TYPE: US abdomen limited DATE OF EXAM: 08/03/2023 COMPARISON: CT 2018 CLINICAL INDICATION: Female, 72 years old with history of ABD mass; Known Umbilical Hernia, painful a fter fall TECHNIQUE: several images taken at the umbilical region FINDINGS: 8.0x8.3cm fat containing umbilical hernia again seen. There now may be a loop of bowel wit hin measuring 5.3x4.9x7.1cm. Difficult to assess due to shadowing from bowel Exam limited by body habitus and large size of hernia. IMPRESSION: Umbilical hernia containing fat and possible bowel.
--- NOTE | 2023-08-03 11:46 | P.CON ---
Consult Note - . Consult date: 08/03/23 (Right ankle fracture) Assessment/Plan:: Dictation on the medical consult Attending physician Dr. Woods orthopedic surgeon. Dictation by Dr. Williamson Date of the consult 08/03/2023 Patient seen and evaluated [id number] Patient seen in the emergency room on 07/29/[address] Isaías Lea and subsequently ascended to the orthopedic surgeon Dr. Woods. X-ray at [facility] emergency department indicate, acute transverse fracture of the medial malleolus, eversion of the right ankle joint, widening of the medial aspect of the right ankle, MRI imaging of the right ankle joint is suggested for follow-up with the underlying ligamentous indigenous abnormality and possible rupture. History: Patient was going out to find out her dog and she find him however she twisted to talk to her daughter and at that time was on the ice and slipped on and fell on on the date of July 23. Patient subsequently went to home to see the orthopedic surgeon and on Tuesday found that her tendon also was rupture and complicated. The second her to the ER on Tuesday for admission with the plan that surgery on Tuesday. . Past medical history patient had history of chronic kidney disease stage III, mixed hyperlipidemia, diabetes mellitus type 2, history of umbilical hernia without obstruction, history of ventral hernia without obstruction, history of vitamin D deficiency, history of bronchiectasis with history of resection. Pets 1 dog Children 1 male 3 daughters Former smoker now quit smoking Retired since 2013. ALLERGY: Prednisone causes moderate urticaria, codeine causes hyper insomnia. Medication: The Meir neck sodium 75 mg twice a day with food Vitamin D 3 1000 international unit once a day capsule Trazodone 50 mg at bedtime for insomnia Lisinopril 10 mg for hypertension. Daily Diltiazem 60 mg twice a day The MacBride 2 mg 1 tablet daily Atorvastatin 20 mg daily at at bedtime Metformin 500 mg tablet twice a day for diabetes mellitus Advair Diskus 500 g50 g Polder inhaler Albuterol inhaler 90 g per inhaler every sole 2 puffs 4 times a day when necessary. Accu-Chek twice a day for monitoring diabetes Fluoxetine 20 mg capsule every a.m. daily.. Review of system: She is stable medically except for her right ankle fracture and is her toes has been flaccid with the questionable tendon tear. Otherwise no complaint except abdominal discomfort with the pain with touch of the abdomen. On the physical exam: Head was normocephalic and atraumatic, pupil was equal reactive, conjunctiva was pink sclera was nonicteric and extraocular muscle movement is intact. She is awake alert oriented cooperative Moody. Neck was supple no JVD no thyromegaly no lymphadenopathy trachea midline Cardiovascular regular sinus rhythm no appreciated murmur. Respiratory: No shortness of breath however she had a bronchiectasis and has been seen by the pulmonary. Dr. Moreira GI and abdomen: She had tenderness on the abdomen umbilical and to the right side with the mass palpated 7 inches in diameter tender on palpation. With discomfort. Genitourinary she is incontinent has a recurrent urinary tract infection and symptomatic with some dysuria. Musculoskeletal: Right ankle fracture with the underlying displacement and tend on questionable tear with flexion of the toes. Neurologically stable Psychiatry she had an anxiety and depression however stable at this time. Assessment number #1 patient admitted because of right ankle fracture with a transverse acute fracture of the medial malleolus with the splint unable to ambulate or walk Eversion of the right ankle joint, widening of the medial aspect of the right ankle, ligamentous trauma of the right ankle. #2 history of chronic kidney disease stage III #3 bronchiectasis with COPD #4 history of hyperlipidemia. #5 abdominal mass on the umbilical on the right side with around 7 inches tender on palpation could be obstructed hernia or related to the bladder. #6 incontinent with a history of dysuria, urine analysis was not wasn't done in the ER. #7 insomnia. Plan recommendation: #1 patient need stat x-ray of the abdomen #2 stat ultrasound of the abdomen to clarify the mass and the tenderness. #3 medication E: Sial and patient was started on insulin to scale #4 patient mildly dehydrated was started gentle IV fluid and couldn't continue with the home medication We'll continue 44 the inhalation therapy with the nebulizer of albuterol. #5 will hold on metformin and glimepiride because of avoiding hypoglycemia prolonged continue with the insulin to scale. Thank you Dr. Woods of letting me participate in the care of Mrs. Korina Giraldo. We'll follow with you
--- NOTE | 2023-08-03 11:53 | XR ---
EXAMINATION TYPE: XR abdomen 2V DATE OF EXAM: 08/03/2023 COMPARISON: NONE HISTORY: Pain TECHNIQUE: Single supine KUB image of the abdomen is obtained FINDINGS: Small bowel demonstrates no evidence for dilatation or air fluid levels. Gas and fecal material is seen in non-distended colon. No convincing evidence for pneumoperitoneum. No unusual calcifications. The lung bases are clear. The osseous structures are intact. IMPRESSION: 1. Overall nonobstructive bowel gas pattern.
[2023-08-03 12:02] LABS: Glucose,Whole Blood 92 mg/dL (70-110)
[2023-08-03] MEDS: INSULIN ASPART (NovoLOG) 100 UNIT/ML VIAL SQ SCH (12:30)
--- NOTE | 2023-08-03 12:42 | P.CNOR ---
History of Present Illness - [facility] Consult date: 08/03/23 Consult reason: fracture (right ankle fracture) History of present illness: This is 72 y/o female admitted to [facility] on 08-01-23 to undergo ORIF of a right ankle fracture and subsequent discharge to a rehab facility for aftercare. On 07/29/2023 patient sustained an injury to her ankle after she slipped and fell on ice with her foot pinned backwards underneath her. She was initially evaluated at the Emergency Department at [facility] where x-rays were obtained, she was placed in a slip, and referred here for further orthopedic evaluation. Patient states that she tried to reduce her ankle herself post- injury because her ankle/foot was "turned the wrong way". She is currently ambulating with the use of a wheelchair. Patient expresses that she lives alone and would like to be placed in a facility for rehab as she is unable to move, walk, or transfer on her own. Her primary care physician is Dr. Williamson and patient also treats with Dr. Moreira for COPD. Today, per patient's intake form she continues to experience extreme pain, swelling, tingling and weakness. She describes her pain as throbbing, aching and burning, which is constant. She states her symptoms are worse with standing and walking. She denies being off work due to her symptoms. Patient admits to taking medication for her symptoms including Motrin and [place] Past Medical History Past Medical History: Asthma, COPD, Diabetes Mellitus, Hyperlipidemia, Hypertension Additional Past Medical History / Comment(s): bipolar, schizo History of Any Multi-Drug Resistant Organisms: None Reported Past Surgical History: Cholecystectomy, Hysterectomy Additional Past Surgical History / Comment(s): lobectomy-right lung, cataract Past Anesthesia/Blood Transfusion Reactions: No Reported Reaction Smoking Status: Former smoker Medications and Allergies Home Medications Medication Instructions Recorded Confirmed Type FLUoxetine HCL [PROzac] 20 mg PO DAILY 09/02/18 08/02/23 History Atorvastatin [Lipitor] 20 mg PO DAILY 06/07/22 08/02/23 History metFORMIN HCL 500 mg PO BID@0900,1700 06/07/22 08/02/23 History HYDROcodone/APAP 5-325MG [[place] 1 tab PO Q6HR PRN #12 tab 07/30/23 08/02/23 Rx 5-325] Ibuprofen [Motrin] 600 mg PO Q8HR PRN #24 tab 07/30/23 08/02/23 Rx Diltiazem Oral [Cardizem Oral] 60 mg PO BID@0900,1700 08/02/23 08/02/23 History Glimepiride [Amaryl] 2 mg PO DAILY 08/02/23 08/02/23 History Tolterodine ER [Detrol LA] 4 mg PO DAILY 08/02/23 08/02/23 History lisinopriL [Zestril] 10 mg PO DAILY 08/02/23 08/02/23 History traZODone HCL [Desyrel] 50 mg PO HS PRN 08/02/23 08/02/23 History Allergies Allergy/AdvReac Type Severity Reaction Status Date / Time codeine AdvReac Unknown Verified 07/29/23 23:35 Physical Examination Osteopathic Statement: *. No significant issues noted on an osteopathic structural exam other than those noted in the History and Physical/Consult. Patient currently in bed with short leg splint on the right CFT intact to digits on right foot Patient reports normal light touch sensation in the digits right foot - Ankle & Foot right Ankle appearance: swelling, other (Patient currently in below-knee splint) Tenderness with palpation: medial ankle, lateral ankle Ankle pain worse with weight bearing: Yes Ankle pain relieved by non-weight bearing: Yes Results - Labs Labs: Abnormal Lab Results - Last 24 Hours (Table) 08/02/23 08/02/23 Range/Units 16:35 16:35 PT 9.8 L (10.0-12.5) sec APTT 18.7 L (22.0-30.0) sec BUN 31 H (7-17) mg/dL Creatinine 1.25 H (0.52-1.04) mg/dL Glucose 121 H (74-99) mg/dL Calcium 10.8 H (8.4-10.2) mg/dL H & H 08/02/23 Range/Units 16:35 Hgb 13.2 (11.4-16.0) gm/dL Hct 40.9 (34.0-46.0) % Coagulation 08/02/23 Range/Units 16:35 INR 0.9 (<1.2) Result Diagrams: 08/02/23 16:35 08/02/23 16:35 Assessment and Plan (1) Displaced bimalleolar fracture of left ankle Current Visit: Yes Status: Acute Code(s): S82.842A - DISPLACED BIMALLEOLAR FRACTURE OF LEFT LOWER LEG, INIT SNOMED Code(s): 604221688 Plan: Patient expressed during her office visit that she would not be able to care for herself following repair of the ankle fracture. While in the office, the recommendation was made to have her admitted to the hospital to fulfill the overnight stay requirements for rehab placement and have the surgical repair of her ankle fracture. Patient and family agreed that this was the best course of action. Surgery is planned for Tuesday08-05-23
[2023-08-03] MEDS: SODIUM CHLORIDE 0.9% 500 ML 500 ML IV SCH (13:11)
[2023-08-03] MEDS: IOPAMIDOL CONTRAST (ORAL USE) VIAL PO PRN (15:04)
[2023-08-03] MEDS: ALBUTEROL NEBULIZED 2.5 MG/3 ML INHALATION SCH (15:11)
--- NOTE | 2023-08-03 16:42 | CT ---
EXAMINATION TYPE: CT abdomen wo con CT DLP: 1855.3 mGycm, Automated exposure control for dose reduction was used. DATE OF EXAM: 08/03/2023 4:32 PM COMPARISON: 05/07/2019. CLINICAL INDICATION:Female, 72 years old with history of ABD mass; mass TECHNIQUE: Axial CT abdomen wo con;Sagittal and coronal reformats were created on a separate worksta tion. Contrast used: (none if empty) Oral contrast used: with Oral Contrast (none if empty) FINDINGS: LOWER CHEST: Consultations along the left diaphragm. Streaky atelectasis in the lung bases. ABDOMEN LIVER: Unremarkable GALLBLADDER AND BILE DUCTS: The gallbladder is surgically absent. PANCREAS: Unremarkable. SPLEEN: Unremarkable. ADRENAL GLANDS: Unremarkable. KIDNEYS AND URETERS: Left renal cyst with peripheral calcification measuring up to 7.8 x 6.3 cm. Righ t simple cyst measuring up to 5.2 cm. No evidence of hydronephrosis or renal calculus. The ureters ar e unremarkable. STOMACH AND BOWEL: No evidence of bowel obstruction. Scattered colonic diverticula. Large stool burde n throughout the colon. PERITONEUM/RETROPERITONEUM: No evidence of pneumoperitoneum or free fluid. VASCULATURE: No evidence of aortic aneurysm. MUSCULOSKELETAL: No acute osseous abnormalities LYMPH NODES: No gross evidence for lymphadenopathy. SOFT TISSUE/ABDOMINAL WALL: Fat-containing hernia in the upper abdomen near midline with neck pain me asuring up to 31 by 27 mm. IMPRESSION: 1. Fat-containing ventral wall hernia in the upper abdomen. This is stable from 2019 exam. 2. No evidence for intraabdominal mass. 3. Right simple appearing renal cysts and left renal cyst with peripheral cortication. Stable from p rior exam. 4. Colonic diverticulosis.
[2023-08-03] MEDS ORDERED: metFORMIN 500 MG TAB PO SCH (17:00)
[2023-08-03 17:38] LABS: Glucose,Whole Blood 126 mg/dL (70-110)
[2023-08-03] MEDS: DILTIAZEM ORAL 60 MG TAB PO SCH (17:52)
[2023-08-03] MEDS: HYDROcodone/APAP 5-325MG 1 EACH TAB PO PRN (17:59)
[2023-08-03] MEDS: BUDESONIDE 0.25 MG/2 ML NEBU INHALATION SCH (19:58)
[2023-08-03 20:14] LABS: Glucose,Whole Blood 132 mg/dL (70-110)
[2023-08-03] MEDS ORDERED: MAGNESIUM HYDROXIDE 2,400 MG/30 ML CUP PO PRN (21:25)
[2023-08-03] MEDS: polyethylene glycoL 3350 17 GM POWD.PACK PO SCH (21:29)
[2023-08-03 22:09] LABS: Appearance,Urine Clear (Clear); Bacteria,Urine Rare /hpf; Bilirubin,Urine Negative (Negative); Blood,Urine Trace (Negative); Cellular Casts,Urine 7 /lpf (0); Color,Urine Colorless; Glucose,Urine (UA) Negative (Negative); Ketones,Urine Negative (Negative); Leukocyte Esterase,Urine Negative (Negative); Mucus,Urine Rare /hpf; Nitrite,Urine Negative (Negative); Protein,Urine Negative (Negative); RBC,Urine 2 /hpf (0-5); Specific Gravity,Urine 1.011 (1.001-1.035); Urobilinogen,Urine <2.0 mg/dL (<2.0); WBC,Urine 7 /hpf (0-5)
[2023-08-03] MEDS: NA PHOS,M-B/NA PHOS,DI-BA 133 ML ENEMA RECTAL ONE (23:13)
[2023-08-03] MEDS: MAGNESIUM HYDROXIDE 2,400 MG/30 ML CUP PO SCH (23:48)
[2023-08-04] MEDS: IBUPROFEN 400 MG TAB PO PRN (05:16)
[2023-08-04 07:04] LABS: Glucose,Whole Blood 106 mg/dL (70-110)
[2023-08-04] MEDS: OXYBUTYNIN XL 5 MG TAB.ER.24 PO SCH (09:07)
[2023-08-04 11:41] LABS: Glucose,Whole Blood 134 mg/dL (70-110)
--- NOTE | 2023-08-04 12:31 | P.PN ---
Subjective Progress Note Date: 08/04/23 Principal diagnosis: Displaced bimalleolar fracture right ankle Patient visited at bedside. Doing well. Pain is well managed with medication. Objective - Vital Signs Vital signs: Vital Signs Temp 98.4 F 08/04/23 07:04 Pulse 82 08/04/23 11:20 Resp 18 08/04/23 07:04 BP 126/71 08/04/23 07:04 Pulse Ox 94 L 08/04/23 07:04 FiO2 Intake & Output 08/03/23 08/04/23 08/04/23 18:59 06:59 18:59 Intake Total 100 Balance 100 Intake: Intake, IV Titration 100 Amount Sodium Chloride 0.9% 500 100 ml 500 ml @ 20 mls/hr IV .Q24H [facility] Rx#:[id number] Other: Voiding Method External Catheter Bedpan Bedpan Diaper Diaper # Voids 1 1 - Exam Below knee splint in place on right leg. Out JAVAD wrap was loose. CFT intact to digits right foot Light touch sesnation intact to digits right foot Generalized pain in the right ankle - Labs CBC & Chem 7: 08/02/23 16:35 08/02/23 16:35 Labs: Abnormal Lab Results - Last 24 Hours (Table) 08/03/23 08/03/23 08/03/23 Range/Units 10:53 17:36 20:12 POC Glucose (mg/dL) 126 H 132 H (70-110) mg/dL PTH Intact 13.3 L (14.0-72.0) pg/mL Urine Blood (Negative) Urine WBC (0-5) /hpf Urine Bacteria (None) /hpf Urine Mucus (None) /hpf 08/03/23 08/04/23 Range/Units 21:50 11:40 POC Glucose (mg/dL) 134 H (70-110) mg/dL PTH Intact (14.0-72.0) pg/mL Urine Blood Trace H (Negative) Urine WBC 7 H (0-5) /hpf Urine Bacteria Rare H (None) /hpf Urine Mucus Rare H (None) /hpf Assessment and Plan (1) Displaced bimalleolar fracture of left ankle Current Visit: Yes Status: Acute Code(s): S82.842A - DISPLACED BIMALLEOLAR FRACTURE OF LEFT LOWER LEG, INIT SNOMED Code(s): 968585758 Plan: Patient is scheduled for ORIF of right ankle fracture on 08-05-23 at approx. 11:30am Discharge planning for rehab placement following surgery JAVAD wrap on splint reapplied with appropriate compression Will f/u with Dr. Shah 1 week after surgery Time with Patient: Less than 30
--- NOTE | 2023-08-04 14:13 | P.PN ---
Subjective Progress Note Date: 08/04/23 Principal diagnosis: Diagnoses Right ankle fracture with tendon injury Underlying medical hernia Constipation with stool retention No evidence of bowel obstruction Hypertension with hypertensive heart disease Bronchiectasis with the COPD. Progress note Date of service 08/04/[address] Shah Patient seen and evaluated [id number] today No specific complaint except to the waiting for surgery tomorrow Patient cleared for the surgery of the right ankle and the leg. She is comfortable no shortness of breath no chest pain no abdominal pain. The studies regarding of the computed tomography scan abdominal x-ray and ultrasound indicating that she has extra abdominal hernia no intra-abdominal abnormality no bowel obstruction. She had a urine analysis however is not clearly infected with the negative nitrite. Current vital sign her blood pressure 126/71 and the mean 89. Oxygen saturation 94% on room air. Temperature 98.4 F oral and the pulse rate 85 bpm regular sinus Respiratory rate 18/m non-labored. Her blood glucose monitoring indicating 106-134. Patient had stool retention and no bowel movement for 5 days she received Fleet Enema and also milk of magnesia and MiraLAX with good response still need to continue. The surgeon who will be attending the patient Dr. Bruno Shah who is a middle stitcher that he will do the repair and he will be following the patient. Subsequently patient will be going to a fdc for continuing rehabilitation. On exam: Patient is conscious alert oriented 3 and she is sitting on the geriatric chair Head was normocephalic and atraumatic pupil was equal reactive conjunctiva was pink sclera was nonicteric, normal hearing, no nasal discharge, oropharynx natural teeth Neck was supple no JVD no thyromegaly no lymphadenopathy trachea midline. Chest: Clear with the underlying increased anteroposterior diameter Heart: Regular sinus rhythm no dysrhythmia Abdomen positive bowel sounds and there is the umbilical hernia with the fact entrapped in the extra-abdominal Extremities right ankle fracture secondary to fall on the ice Neurologically stable Psychiatrically stable with the current medication no Assessment: Patient cleared for surgical intervention of the right ankle We'll continue the current medication Diabetes mellitus2 patient was on clear liquid/full liquid diet currently advanced to regular diabetic diet and resuming her home medication or diabetes mellitus Continue the inhalation therapy with history of COPD and bronchiectasis. Blood pressure is controlled Plan: Stable medically to proceed for surgical intervention thank you Objective - Vital Signs Vital signs: Vital Signs Temp 98.4 F 08/04/23 07:04 Pulse 82 08/04/23 11:20 Resp 18 08/04/23 07:04 BP 126/71 08/04/23 07:04 Pulse Ox 94 L 08/04/23 07:04 FiO2 Intake & Output 08/03/23 08/04/23 08/04/23 18:59 06:59 18:59 Intake Total 100 Balance 100 Intake: Intake, IV Titration 100 Amount Sodium Chloride 0.9% 500 100 ml 500 ml @ 20 mls/hr IV .Q24H [facility] Rx#:[id number] Other: Voiding Method External Catheter Bedpan Bedpan Diaper Diaper # Voids 1 1 - Labs CBC & Chem 7: 08/02/23 16:35 08/02/23 16:35 Labs: Abnormal Lab Results - Last 24 Hours (Table) 08/03/23 08/03/23 08/03/23 Range/Units 10:53 17:36 20:12 POC Glucose (mg/dL) 126 H 132 H (70-110) mg/dL PTH Intact 13.3 L (14.0-72.0) pg/mL Urine Blood (Negative) Urine WBC (0-5) /hpf Urine Bacteria (None) /hpf Urine Mucus (None) /hpf 08/03/23 08/04/23 Range/Units 21:50 11:40 POC Glucose (mg/dL) 134 H (70-110) mg/dL PTH Intact (14.0-72.0) pg/mL Urine Blood Trace H (Negative) Urine WBC 7 H (0-5) /hpf Urine Bacteria Rare H (None) /hpf Urine Mucus Rare H (None) /hpf
[2023-08-04 17:08] LABS: Glucose,Whole Blood 126 mg/dL (70-110)
[2023-08-04] MEDS: metFORMIN 500 MG TAB PO SCH (17:31)
[2023-08-04 20:10] LABS: Glucose,Whole Blood 214 mg/dL (70-110)
[2023-08-05] MEDS ORDERED: MIDAZOLAM 2 MG/2 ML VIAL IV PRN (07:00)
[2023-08-05] MEDS ORDERED: HYDROmorphone 0.5 MG/0.5 ML SYRINGE IVP PRN (07:00)
[2023-08-05 07:14] LABS: Glucose,Whole Blood 121 mg/dL (70-110)
[2023-08-05] MEDS: GLIMEPIRIDE 2 MG TAB PO SCH (08:20)
[2023-08-05] MEDS: LACTATED RINGERS 1,000 ML IV SCH (08:38)
[2023-08-05] MEDS: IV FLUID CONTINUATION 1,000 ML IV ONE (10:14)
[2023-08-05 10:35] LABS: Glucose,Whole Blood 152 mg/dL (70-110)
[2023-08-05] MEDS: MIDAZOLAM 2 MG/2 ML VIAL IVP ONE (10:59)
[2023-08-05] MEDS ORDERED: PHENYLEPHRINE 10 MG/ML VIAL ONE (11:10)
[2023-08-05] MEDS ORDERED: GLYCOPYRROLATE 0.2 MG/ML 2 ML VIAL ONE (11:10)
[2023-08-05] MEDS ORDERED: WATER FOR INJECTION, STERILE 10 ML VIAL IV ONE (11:10)
[2023-08-05] MEDS ORDERED: ROCURONIUM 10 MG/ML (5 ML VIAL) IV ONE (11:10)
[2023-08-05] MEDS ORDERED: ePHEDrine 50 MG/ML 1 ML VIAL ONE (11:10)
[2023-08-05] MEDS ORDERED: fentaNYL (PF) 50 MCG/ML 2 ML AMP ONE (11:10)
[2023-08-05] MEDS ORDERED: SUCCINYLCHOLINE CHLORIDE 200 MG/10 ML VIAL IV ONE (11:10)
[2023-08-05] MEDS ORDERED: NEOSTIGMINE 1 MG/ML 10 ML VIAL ONE (11:10)
[2023-08-05] MEDS ORDERED: DEXAMETHASONE SOD PHOSPHATE 4 MG/ML 1 ML VIAL ONE (11:10)
[2023-08-05] MEDS ORDERED: PROPOFOL 10 MG/ML 20 ML VIAL IV ONE (11:10)
[2023-08-05] MEDS ORDERED: LIDOCAINE 1% INJ 10MG/ML (20 ML MDV) ONE (11:10)
[2023-08-05] MEDS ORDERED: ROPIVACAINE 5 MG/ML 30 ML VIAL ONE (11:10)
[2023-08-05] MEDS: ceFAZolin 1,000 MG in SODIUM CHLORIDE 0.9% 1,000 ML IRRIGATION ONE (11:45)
[2023-08-05] MEDS: LACTATED RINGERS 1,000 ML IV ONE (12:18)
--- NOTE | 2023-08-05 12:52 | XR ---
Fluoroscopy History: ORIF Rt Ankle ORIF Rt Ankle
--- NOTE | 2023-08-05 12:59 | P.OP ---
Date of Procedure: 08/05/23 Preoperative Diagnosis: 1. Displaced bimalleolar fracture right ankle 2. Ruptured syndesmosis right ankle Postoperative Diagnosis: 1. Same 2. Same Procedure(s) Performed: 1. Open reduction with internal fixation right bimalleolar ankle fracture 2. Open reduction with internal fixation right syndesmotic rupture Implants: Arthrex Fibulock nail 3.0mm cancellous screws x 2 4.0mm cannulated screw x 1 4.0mm cortical screws x 2 Anesthesia: GETA Surgeon: Bruno Shah Estimated Blood Loss (ml): 20 Pathology: none sent Condition: stable Disposition: PACU Description of Procedure: Prior to the patient being brought to the operating room, anesthesia adm inistered a nerve block on the right lower extremity. The patient was brought into the operative room and placed on table in supine position. Timeout was taken to confirm correct patient identifiers, correct laterality of surgery, and correct procedure. Once all staff in the room were in agreement with the timeout, the patient was induced and placed under general anesthesia. A well- padded tourniquet was placed on the right thigh and a wedge underneath the right hip to internally rotate the right leg. The right leg was then prepped and draped in usual manner. The leg was tingling irrigated with an Esmarch bandage and then the tourniquet was inflated to 250 mmHg. Utilizing fluoroscopic guidance, the area of the fracture was marked and identified. A small incision was made over the area of the fracture and bluntly dissected down to level the periosteum. The soft tissues reflected from the anterior and posterior aspects of the fibula. An elevator was used to remove any soft tissue that was interposed between the fracture fragments. A bone reduction clamp was used to rotate and bring the fracture back out to length. Fluoroscopy confirmed near anatomic alignment of the fracture. At that point fluoroscopy was used to mychal the distal portions for the entry of the intramedullary fibula nail as well as a trajectory through the shaft of the fibula. A small stab incision was made for the entry point and bluntly dissected down to the tip of the lateral malleolus. A guidewire was placed at the tip of the lateral malleolus and partially advanced into the bone. F luoroscopy was used to check the trajectory and entry point of the wire both on AP and lateral views. Once that was confirmed, the wire was advanced to the fracture line. Then the reamer was used to partially ream the distal portion of the lateral malleolus. The larger wire was removed and then a thinner wire along with the guide was then placed into the reamed hole in the thinner wire was passed past the fracture advanced under power oscillation so that it went through the canal of the lateral malleolus and fibula. Once the proper depth was obtained the reamer was used again then brought to the proper depth. Then the reamer was removed and the drill bit for the intramedullary reaming of the fibula was inserted over the wire and advanced down to proper depth. The small wire was removed and the fibular lock nail, which was artery loaded on the jig, was inserted into the reamer hole and advanced under fluoroscopy until it was at its proper depth. A wire was placed through the jig to designate the end of the nail to make sure that was at proper depth. Then the screwdriver was inserted into the base of the nail and used to deploy the proximal talons until the screwdriver clicked several times indicating that they were fully deployed. The drill guides for the distal locking screws were placed through the jig and then the drill bit was inserted through the guide and advanced unit cortically through the lateral malleolus. 3.0 mm cancellus screws were inserted through these drill holes until the heads were flush with the bone. Fluoroscopy confirmed that the screws were properly seated and did not penetrate the lateral portion of the ankle joint. Then attention was directed to the medial malleolar fracture. The fracture was manually reduced and then a guidewire for a 4.0 mm cannulated screw was inserted through the skin and placed at the tip of the medial malleolus. The wire was adjusted for position under fluoroscopy and then advanced through the fracture fragment and into the distal tibia. Fluoroscopic imaging showed that the fracture remained reduced and the wire trajectory was appropriate. A small stab incision was made through the skin at the entry point of the wire. A 4.0 mm partially threaded, cannulated screw was inserted over the guidewire and advanced until the head engaged the bone of the medial malleolus and compressed the fracture. Fluoroscopic imaging confirmed the proper placement of the screw as well as maintain reduction of the fracture, both on the AP and lateral views. At this time, the ankle joint was stressed under live fluoroscopy. It showed some instability in the syndesmosis and mild gapping of the medial gutter. The decision was made to place 2 syndesmotic screws. Attention was directed back to the jig, where the drill guides were placed into the appropriate holes for syndesmotic screw placement. Drilling was performed through 3 cortices, leaving the drill bit just short of the medial tibial cortex. The screws were inserted and advanced until the heads engaged the lateral malleolus. The screws were inserted while holding the reduction clamp across the joint and the ankle maximally dorsiflexed. The jig was removed from the nail and then final fluoroscopic imaging was performed that showed anatomic reduction of the fractures, no further instability, and proper placement of the hardware. All wounds were thoroughly irrigated with antibiotic saline. The lateral incision made for the fracture reduction was closed with 2- 0 Vicryl for the deep closure, and skin sugar for the incision. The remaining incisions were closed with sugar. The incisions were covered with an Arthrex jumpstart dressing. A bulky dry dressings applied to the right leg. The tourniquet was released and capillary refill return to all digits on the right foot. Then the patient was placed in a well-padded, well molded posterior mold/sugar tong splint. The ankle was held in neutral dorsiflexion and slight i nversion as it dried. Once the splint was dried, anesthesia was reversed and the patient was taken recovery with vital signs stable.
[2023-08-05 13:03] LABS: Glucose,Whole Blood 134 mg/dL (70-110)
[2023-08-05] MEDS: DEXAMETHASONE SOD PHOSPHATE 4 MG/ML 1 ML VIAL IV ONE (14:11)
[2023-08-05] MEDS: ONDANSETRON 4 MG/2 ML VIAL IVP ONE (14:12)
[2023-08-05 14:22] LABS: Glucose,Whole Blood 161 mg/dL (70-110)
[2023-08-05] MEDS ORDERED: bisacodyL 5 MG TABLET.DR PO PRN (15:04)
--- NOTE | 2023-08-05 15:20 | P.PN ---
Subjective Progress Note Date: 08/05/23 This progress note Date of service 08/05/[address] Williamson Patient seen postoperative Patient underwent surgery by Dr. Woods and Dr. Shah with the surgery and repair. Patient comfortable with this blocking the nerve and the pain. Her vital sign: Temperature 97.9 F oral, pulse 84 bpm regular, respiratory rate 16/min, blood pressure 112/62 with a mean blood pressure 78 oxygen saturation has been fluctuating between 95 on 2 L and 91 on room air she is back on her oxygen 2 L. Patient is full code Patient stated that MiraLAX powder dissolved does not help her for moving her bowel with the chronic constipation and the x-ray CT of the abdomen indicating large amount of stool and she stated that when she had the Fleet enema she had minimal bowel movement and she requesting magnesium citrate. Will discontinue the magnesium hydroxide and discontinue MiraLAX and we will start magnesium citrate 1 ounce daily gentle until we move the bowel also started the Dulcolax oral p.o. 5 mg once daily to be held if have diarrhea or removing the bowel with the underlying chronic constipation. I did discuss with the patient her daughter also was at bedside and advised her that she should have colonoscopy for evaluation with the chronic constipation. Meanwhile we will check about her thyroid function as well mean while we will continue the new order for constipation. Patient anticipated going to [facility] on Tuesday and she stated she will go to [facility] [place] [facility] [place] and at that time she will be under my care as a go to [facility] [place]. Now Patient otherwise stable her head was normocephalic atraumatic pupils equal reactive oropharynx was negative and she had natural teeth hearing is normal Neck was supple no JVD no thyromegaly no lymphadenopathy trachea midline. Chest was clear to auscultation and percussion and Heart was regular sinus rhythm and blood pressure is well-controlled Abdomen. Bowel sounds and no tenderness and she had the umbilical hernia which discussed with the patient also today as well and advised that she will be seeing the surgeon after she healing of her fracture of the right ankle and also with the colonoscopy and they may have to assess the hernia in the umbilical area as well however it is not causing any bowel obstruction and the CT scan of the abdomen has been done and on this admission. Extremities no edema and she had the right ankle as repair as well as had screws in the ankle with by malleolar fracture and tendon trauma. Psychiatry is a stable and Neurologically stable Impression: 1. Admitted with acute fracture of the right ankle with displaced and bimalleolar and with questionable trauma to the tendons status post operation today on 08/05/2023. 2. Diabetes mellitus type 2 and we ordered the insulin to scale as well as resuming her medication. 3. Underlying COPD and bronchiectasis. 4. Chronic constipation, medication adjusted. 5. Hypertension is controlled. 6. Umbilical hernia. Recommendations and plan: 1. Will change the medication for constipation as ordered with the magnesium citrate 1 ounce daily for gentle relief of constipation as patient just had surgery 2. Add Dulcolax 5 mg once a day and hold if relief from constipation. 3. Add insulin NovoLog to scale. 4. Will recommend incentive spirometry to be used 4 times daily. Objective - Vital Signs Vital signs: Vital Signs Temp 97.9 F 08/05/23 14:02 Pulse 84 08/05/23 14:02 Resp 16 08/05/23 14:02 BP 112/62 08/05/23 14:02 Pulse Ox 91 L 08/05/23 14:02 FiO2 Intake & Output 08/04/23 08/05/23 08/05/23 18:59 06:59 18:59 Intake Total 1251 Output Total 20 Balance 1231 Intake: IV 1251 Output: Estimated Blood Loss 20 Other: Voiding Method Bedpan Bedside Commode Diaper # Voids 1 1 1 - Labs CBC & Chem 7: 08/02/23 16:35 08/02/23 16:35 Labs: Abnormal Lab Results - Last 24 Hours (Table) 08/04/23 08/04/23 08/05/23 Range/Units 17:07 20:08 07:13 POC Glucose (mg/dL) 126 H 214 H 121 H (70-110) mg/dL 08/05/23 08/05/23 08/05/23 Range/Units 10:33 13:00 14:20 POC Glucose (mg/dL) 152 H 134 H 161 H (70-110) mg/dL
[2023-08-05] MEDS: MAGNESIUM CITRATE 296 ML BOTTLE PO ONE (15:55)
[2023-08-05 17:39] LABS: Glucose,Whole Blood 279 mg/dL (70-110)
[2023-08-05] MEDS: INSULIN ASPART (NovoLOG) 100 UNIT/ML VIAL SQ SCH (18:12)
[2023-08-05 20:06] LABS: Glucose,Whole Blood 294 mg/dL (70-110)
[2023-08-06] MEDS: ACETAMINOPHEN TAB 325 MG TAB PO PRN (05:41)
[2023-08-06 07:35] LABS: Glucose,Whole Blood 218 mg/dL (70-110)
[2023-08-06 11:58] LABS: Glucose,Whole Blood 189 mg/dL (70-110)
--- NOTE | 2023-08-06 13:34 | P.PN ---
Subjective Progress Note Date: 08/06/23 Principal diagnosis: Displaced bimalleolar fracture right ankle 72-year-old patient visited at bedside, postop day #1 following open reduction with internal fixation of right ankle fracture Patient is doing well and is currently managed with oral pain medications. Patient states that she still has decreased sensation on the right leg secondary to the nerve block. Patient denies nausea, vomiting, fever, chills, calf pain or shortness of breath. Plan is for discharge to rehab facility August 08 Objective - Vital Signs Vital signs: Vital Signs Temp 98.3 F 08/06/23 07:43 Pulse 82 08/06/23 12:36 Resp 17 08/06/23 07:43 BP 134/62 08/06/23 07:43 Pulse Ox 96 08/06/23 07:43 FiO2 Intake & Output 08/05/23 08/06/23 08/06/23 18:59 06:59 18:59 Intake Total 1251 240 200 Output Total 20 Balance 1231 240 200 Intake: IV 1251 Oral 240 200 Output: Estimated Blood Loss 20 Other: Voiding Method Bedside Commode Bedpan Bedpan # Voids 1 1 - Exam Below knee splint in place on right leg. Splint is intact, no strike through. CFT intact to digits right foot Light touch sesnation diminished to the right foot digits secondary to nerve block Generalized mild pain in the right ankle - Labs CBC & Chem 7: 08/02/23 16:35 08/02/23 16:35 Labs: Abnormal Lab Results - Last 24 Hours (Table) 08/05/23 08/05/23 08/05/23 Range/Units 14:20 17:38 20:04 POC Glucose (mg/dL) 161 H 279 H 294 H (70-110) mg/dL 08/06/23 08/06/23 Range/Units 07:17 11:50 POC Glucose (mg/dL) 218 H 189 H (70-110) mg/dL Assessment and Plan (1) Displaced bimalleolar fracture of left ankle Current Visit: Yes Status: Acute Code(s): S82.842A - DISPLACED BIMALLEOLAR FRACTURE OF LEFT LOWER LEG, INIT SNOMED Code(s): 998686708 Plan: Patient currently doing well. Continue pain management as needed. Plan discharge for August 08 to rehab facility. Follow-up with Dr. Shah August 11
--- NOTE | 2023-08-06 15:32 | P.PN ---
Subjective Progress Note Date: 08/06/23 Progress note, Date of service 08/06/[address] Williamson. Patient seen [id number] evaluated main complaint constipation with inability to clear her bowel was a large stools retention and underlying chronic constipation for years. She stated that 1 ounce did not help for bowel movement and will try 3 ounce of magnesium citrate and repeat again tomorrow if there is no response Also will use sodium docusate 8.6 mg - 50 mg with the senna twice a day. And we can try again enema however when she had the Fleet enema no minimal response was not satisfactory and will try soapsuds enema. She denied any abdominal pain mainly in the chronic constipation. In regard of diabetes mellitus she has been monitored and have oral hypoglycemic agent added to insulin NovoLog to scale, her blood sugar this morning 189 before lunch. Her vital sign stable, temperature 98.2 F oral, pulse 87/min and regular sinus, no shortness of breath and the respiratory rate 17/min, blood pressure 121/62 with a mean blood pressure 81 Pulse ox on room air 93% on room air. No evidence of respiratory distress and no cough or expectoration. On exam: Head was normocephalic atraumatic, pupil equal reactive, conjunctiva was pink, sclera nonicteric, oropharynx normal able to eat and swallow and we will discontinue the IV fluid and keep the hep well. Neck was supple no JVD no thyromegaly no lymphadenopathy trachea midline. Chest clear to auscultation percussion with the increase anteroposterior diameter and underlying COPD. Heart regular sinus rhythm compensated Abdomen: She had the abdominal hernia umbilical, positive bowel sounds currently no tenderness except that she had a stool retention Extremities left lower extremities positive pulses no edema Right lower extremities with the open reduction internal fixation of the by malleolar fracture and referred to the orthopedic and elevator service technician note. Psychiatry stable Neurologically stable. Assessment: 1. Chronic constipation and patient stated that it has been for a long time and her used to give her the enema and used to be soapsuds enema. However also she has been using magnesium citrate whole bottle to clean up her bowel which I did advise her that she should had in the future after she he will colonoscopy. Diabetes mellitus controlled with the insulin coverage and oral hypoglycemic agent. Hypertension is controlled COPD and bronchiectasis no acute exacerbation. Plan: Will continue the current plan discussed with TYRONE Reilly and will discontinue the IV fluids keep the hep well Continue the monitoring for the diabetes mellitus and coverage Magnesium citrate 3 ounce to be repeated tomorrow if there is no response for bowel movement Will start sodium docusate with senna Twice a day Soapsuds enema. Depend on the patient response we will advance treatment Objective - Vital Signs Vital signs: Vital Signs Temp 98.2 F 08/06/23 14:11 Pulse 87 08/06/23 14:11 Resp 17 08/06/23 14:11 BP 121/62 08/06/23 14:11 Pulse Ox 93 L 08/06/23 14:11 FiO2 Intake & Output 08/05/23 08/06/23 08/06/23 18:59 06:59 18:59 Intake Total 1251 240 200 Output Total 20 Balance 1231 240 200 Intake: IV 1251 Oral 240 200 Output: Estimated Blood Loss 20 Other: Voiding Method Bedside Commode Bedpan Bedpan # Voids 1 1 - Labs CBC & Chem 7: 08/02/23 16:35 08/02/23 16:35 Labs: Abnormal Lab Results - Last 24 Hours (Table) 08/05/23 08/05/23 08/06/23 Range/Units 17:38 20:04 07:17 POC Glucose (mg/dL) 279 H 294 H 218 H (70-110) mg/dL 08/06/23 Range/Units 11:50 POC Glucose (mg/dL) 189 H (70-110) mg/dL
[2023-08-06] MEDS: MAGNESIUM CITRATE 296 ML BOTTLE PO ONE (16:16)
[2023-08-06 17:22] LABS: Glucose,Whole Blood 208 mg/dL (70-110)
[2023-08-06 20:08] LABS: Glucose,Whole Blood 246 mg/dL (70-110)
[2023-08-06] MEDS: SENNOSIDES-DOCUSATE SODIUM 1 EACH TAB PO SCH (21:12)
[2023-08-07 07:59] LABS: Glucose,Whole Blood 141 mg/dL (70-110)
[2023-08-07 12:01] LABS: Glucose,Whole Blood 117 mg/dL (70-110)
[2023-08-07] MEDS ORDERED: BENZOCAINE/MENTHOL LOZENG 1 EACH LOZENGE MUCOUS MEM PRN (12:54)
--- NOTE | 2023-08-07 13:04 | P.PN ---
Subjective Progress Note Date: 08/07/23 Progress note Date of service 08/[address] Williamson Patient seen today [id number] conscious alert oriented x 3 She had a bowel movement with the program Complain of dryness of the throat and nasal passages. Her vital sign at 8 AM today Her temperature 98.1 F oral, pulse 80/min regular sinus, respiratory rate 16/min nonlabored, blood pressure 143/75, mean blood pressure 97, and oxygen saturation on room air 95%. Her pain is controlled well with the current medication ordered by the ortho pedic post bimalleolar fracture with the need for transfixation with the screw as well. Head was normocephalic atraumatic Oropharynx able to swallow and with dryness of the throat and mouth and nasal passages. Neck was supple no JVD no thyromegaly no lymphadenopathy. Chest normal breath sounds with underlying COPD no wheezes no rhonchi's and she had a history of bronchiectasis no expectoration Heart regular sinus rhythm compensated Abdomen soft positive bowel sounds with the umbilical hernia and she had a bowel movement Extremities right ankle fracture status post open reduction and fixation with a screw by the orthopedic Psychiatry stable Neurologically stable. Assessment and plan 1. Some dryness in the nasal passages and throat she will start on Cepacol lozenges 2. Blood pressure is controlled 3. Diabetes mellitus type 2 well-controlled 4. Pain controlled Orthopedic surgeon's planned for her to go to long term of her choice for rehabilitation for her fracture of the right ankle Patient can go with all her medication currently prescribed Stable for discharge Dr. Shah addressed to her to be seeing him on 11 August 2023. Case management will address with the orthopedic. Objective - Vital Signs Vital signs: Vital Signs Temp 98.0 F 08/07/23 12:50 Pulse 73 08/07/23 12:50 Resp 16 08/07/23 12:50 BP 115/64 08/07/23 12:50 Pulse Ox 93 L 08/07/23 12:50 FiO2 Intake & Output 08/06/23 08/07/23 08/07/23 18:59 06:59 18:59 Intake Total 1520 590 240 Balance 1520 590 240 Intake: Oral 1520 590 240 Other: Voiding Method Bedpan Bedside Commode Bedside Commode # Voids 2 1 # Bowel Movements 1 - Labs CBC & Chem 7: 08/02/23 16:35 08/02/23 16:35 Labs: Abnormal Lab Results - Last 24 Hours (Table) 08/06/23 08/06/23 08/07/23 Range/Units 17:21 20:07 07:57 POC Glucose (mg/dL) 208 H 246 H 141 H (70-110) mg/dL 08/07/23 Range/Units 11:59 POC Glucose (mg/dL) 117 H (70-110) mg/dL
[2023-08-07 17:19] LABS: Glucose,Whole Blood 124 mg/dL (70-110)
--- NOTE | 2023-08-07 20:09 | P.ANPRN ---
Procedure Note - Anesthesia - Nerve Block Performed Right Popliteal Single Time Out Performed: Yes Date of Procedure: 08/05/23 Procedure Start Time: 10:59 Procedure Stop Time: 11:03 Location of Patient: PreOp Indication: Acute Post-Operative Pain, Requested by Surgeon Sedation Type: Sedate with meaningful contact maintained Preparation: Sterile Prep Position: Left Lateral Needle Types: Pajunk Needle Gauge: 21 Ultrasound used to visualize needle placement: Yes Ultrasound used to observe medication spread: Yes Blood Aspirated: No Pain Paresthesia on Injection Noted: No Resistance on Injection: Normal Image Stored and Saved: Yes Events: Uneventful and Well Tolerated (Ropivacaine 0.5% 20 cc plus dexamethasone 4 mg)
--- NOTE | 2023-08-07 20:11 | P.ANPRN ---
Procedure Note - Anesthesia - Nerve Block Performed Right Adductor Canal Single Time Out Performed: Yes Date of Procedure: 08/05/23 Procedure Start Time: 11:04 Procedure Stop Time: 11:07 Location of Patient: PreOp Indication: Acute Post-Operative Pain, Requested by Surgeon Sedation Type: Sedate with meaningful contact maintained Preparation: Sterile Prep Position: Supine Needle Types: Pajunk Needle Gauge: 21 Ultrasound used to visualize needle placement: Yes Ultrasound used to observe medication spread: Yes Blood Aspirated: No Pain Paresthesia on Injection Noted: No Resistance on Injection: Normal Image Stored and Saved: Yes Events: Uneventful and Well Tolerated (Ropivacaine 0.5% 20 cc plus dexamethasone 4 mg)
[2023-08-07 20:33] LABS: Glucose,Whole Blood 170 mg/dL (70-110)
--- NOTE | 2023-08-08 07:10 | P.DS ---
Providers Date of admission: 08/02/23 18:18 Expected date of discharge: 08/08/23 Attending physician: Arvind Woods Consults: 08/02/23 18:36 Consult Physician Routine Consulting Provider: Renzo Williamson Consult Reason/Comments: medical management, surgical clearance Do you want consulting provider notified?: Already Contacted 08/03/23 10:52 Consult Physician Routine Consulting Provider: Bruno Shah Consult Reason/Comments: broken ankle Do you want consulting provider notified?: Yes Primary care physician: Renzo Williamson - Discharge Diagnosis(es) (1) Displaced bimalleolar fracture of left ankle Current Visit: Yes Status: Acute Onset Date: ~07/30/23 Hospital Course: 72-year-old female who first presented to my office on August 02 for a displaced bimalleolar ankle fracture. Patient had initial injury on 07/30/2023 when she slipped at home. She is brought into the emergency room at [facility]. X-rays indicated displaced bimalleolar ankle fracture. The patient [facility] spl[facility] She was evalu ated in the office for the first time on 2023. During the conversation regarding the treatment of her ankle fracture, surgery was recommended to repair the fracture. The patient and family at the time, had concerns about being able to take care of herself at home. Patient stated that she was unable to care for herself and her current condition. Therefore was recommended that she be readmitted back to the hospital so that surgery can be performed anteriorly placed in a rehab facility upon discharge. Surgery on the right ankle was performed on 08/05/2023. The surgery was an open reduction with internal fixation of right bimalleolar ankle fracture as well as repair of the syndesmosis right ankle. Patient did not have any Acute events during the admission. On the first postop follow-up patient indicated that the nerve block was still in place and that her pain was managed with oral Abiquiu. She denied any other complaints. Assessment: Displaced bimalleolar ankle fracture with surgical fixation on 08/05/2023 Health Concerns: Asthma, COPD, Diabetes Mellitus, Hypertension Procedures: Open reduction with internal fixation of right ankle fracture performed on 08/05/2023 Patient Condition at Discharge: Stable Plan - Discharge Summary Discharge Rx Participant: No New Discharge Prescriptions: No Action FLUoxetine HCL [PROzac] 20 mg PO DAILY Atorvastatin [Lipitor] 20 mg PO DAILY HYDROcodone/APAP 5-325MG [Abiquiu 5-325] 1 tab PO Q6HR PRN #12 tab PRN Reason: Pain lisinopriL [Zestril] 10 mg PO DAILY Diltiazem Oral [Cardizem Oral] 60 mg PO BID@0900,1700 Glimepiride [Amaryl] 2 mg PO DAILY metFORMIN HCL 500 mg PO BID@0900,1700 Ibuprofen [Motrin] 600 mg PO Q8HR PRN #24 tab PRN Reason: Pain Tolterodine ER [Detrol LA] 4 mg PO DAILY traZODone HCL [Desyrel] 50 mg PO HS PRN PRN Reason: Insomnia Discharge Medication List FLUoxetine HCL [PROzac] 20 mg PO DAILY 09/02/18 [History] Atorvastatin [Lipitor] 20 mg PO DAILY 06/07/22 [History] metFORMIN HCL 500 mg PO BID@0900,1700 06/07/22 [History] HYDROcodone/APAP 5-325MG [Abiquiu 5-325] 1 tab PO Q6HR PRN #12 tab 07/30/23 [Rx] Ibuprofen [Motrin] 600 mg PO Q8HR PRN #24 tab 07/30/23 [Rx] Diltiazem Oral [Cardizem Oral] 60 mg PO BID@0900,1700 08/02/23 [History] Glimepiride [Amaryl] 2 mg PO DAILY 08/02/23 [History] Tolterodine ER [Detrol LA] 4 mg PO DAILY 08/02/23 [History] lisinopriL [Zestril] 10 mg PO DAILY 08/02/23 [History] traZODone HCL [Desyrel] 50 mg PO HS PRN 08/02/23 [History] Follow up Appointment(s)/Referral(s): Bruno Shah DPM [Doctor of Osteopathic Medicine] - 1 Week Renzo Williamson MD [Primary Care Provider] - 1-2 days Patient Instructions/Handouts: *Surgery [facility] - ([facility]) Discharge Instructins Foot Surgery Activity/Diet/Wound Care/Special Instructions: Keep the splint clean, dry, and intact. Do not remove Keep foot elevated above your heart when resting Apply ice behind the knee 1 hour on/[address] weight on the surgical side Use crutches, walker, etc. for mobility Take pain medications as prescribed Discharge Disposition: TRANSFER TO SNF/ECF
[2023-08-08 07:43] LABS: Glucose,Whole Blood 73 mg/dL (70-110)
--- NOTE | 2023-08-08 10:46 | P.HPOR ---
History of Present Illness H&P Date: 08/02/23 Chief Complaint: displaced bimalleolar ankle fracture Patient admitted via ER for a displaced right bimalleolar fracture. Patient slipped and fell. She notes that the ankle was deformed at the time of injury and she self reduced it so that she could get up. She was taken to the [facility] ER, where x-rays confirmed the fracture. [facility] at [facility] 08[facility]. We discussed the need for surgical intervention, however the patient did not have a care system in place and did not feel comfortable going home after surgery. I recommended rehab placement after surgery. We recommended that she go back through the [facility] ER to be admitted through our service so that she could have surgery and fulfill the overnight stay requirements for rehab placement. She is currently in a short leg splint. He symptoms are being managed with oral [place] Past Medical History Past Medical History: Asthma, COPD, Diabetes Mellitus, Hyperlipidemia, Hypertension Additional Past Medical History / Comment(s): bipolar, schizo History of Any Multi-Drug Resistant Organisms: None Reported Past Surgical History: Cholecystectomy, Hysterectomy Additional Past Surgical History / Comment(s): lobectomy-right lung, cataract Past Anesthesia/Blood Transfusion Reactions: No Reported Reaction Smoking Status: Former smoker Medications and Allergies Home Medications Medication Instructions Recorded Confirmed Type FLUoxetine HCL [PROzac] 20 mg PO DAILY 09/02/18 08/02/23 History Atorvastatin [Lipitor] 20 mg PO DAILY 06/07/22 08/02/23 History metFORMIN HCL 500 mg PO BID@0900,1700 06/07/22 08/02/23 History HYDROcodone/APAP 5-325MG [[place] 1 tab PO Q6HR PRN #12 tab 07/30/23 08/02/23 Rx 5-325] Ibuprofen [Motrin] 600 mg PO Q8HR PRN #24 tab 07/30/23 08/02/23 Rx Diltiazem Oral [Cardizem Oral] 60 mg PO BID@0900,1700 08/02/23 08/02/23 History Glimepiride [Amaryl] 2 mg PO DAILY 08/02/23 08/02/23 History Tolterodine ER [Detrol LA] 4 mg PO DAILY 08/02/23 08/02/23 History lisinopriL [Zestril] 10 mg PO DAILY 08/02/23 08/02/23 History traZODone HCL [Desyrel] 50 mg PO HS PRN 08/02/23 08/02/23 History Allergies Allergy/AdvReac Type Severity Reaction Status Date / Time codeine AdvReac Unknown Verified 07/29/23 23:35 Physical Examination Osteopathic Statement: *. No significant issues noted on an osteopathic structural exam other than those noted in the History and Physical/Consult. 72 y/o female, resting in bed. Short leg splint on right leg A/O x 3. No distress Capillary refill intact to digits 1-5 right foot Sensation intact to all digits right foot - Ankle & Foot right Ankle appearance: swelling, other (Patient in a short leg splint) Tenderness with palpation: medial ankle, lateral ankle Ankle pain worse with weight bearing: Yes Ankle pain relieved by non-weight bearing: Yes Results - Labs Labs: Abnormal Lab Results - Last 24 Hours (Table) 08/07/23 08/07/23 08/07/23 Range/Units 11:59 17:17 20:31 POC Glucose (mg/dL) 117 H 124 H 170 H (70-110) mg/dL H & H 08/02/23 Range/Units 16:35 Hgb 13.2 (11.4-16.0) gm/dL Hct 40.9 (34.0-46.0) % Coagulation 08/02/23 Range/Units 16:35 INR 0.9 (<1.2) Result Diagrams: 08/02/23 16:35 08/02/23 16:35 - Diagnostic results Ankle/Foot x-ray: image reviewed (displaced bimalleolar fracture right ankle) Assessment and Plan (1) Displaced bimalleolar fracture of left ankle Narrative/Plan: Patient will be admitted through ortho service with Dr. Woods as the attending and Dr. Shah as natural remedy consultant and surgeon Surgery is planned for 2-2-24 Planned D/C to rehab facility after surgery Current Visit: Yes Status: Acute Onset Date: ~07/30/23 Code(s): S82.842A - DISPLACED BIMALLEOLAR FRACTURE OF LEFT LOWER LEG, INIT SNOMED Code(s): 945291199 Time with Patient: Less than 30
[2023-08-08 12:12] VITALS: BMI 39.4
[2023-08-08 13:09] LABS: Glucose,Whole Blood 108 mg/dL (70-110)
--- NOTE | 2023-08-08 16:17 | P.PN ---
Subjective Progress Note Date: 08/08/23 Progress note Follow-up on the medical management and consult. Date of service 08/08/[address] Williamson. Patient seen [id number] and discussed with her the orthopedic plan for discharge today and she is ready for that and she cleared also medically for discharge and up to the employment case manager and the environmental emergencies planner for the. Transfer to medical [facility] for continuing rehabilitation. Patient has bowel movement and she is satisfactory for her and she did very well with that. Her vital sign stable with a temperature 98.4 F oral, pulse 91/m, respiratory rate 17/m nonlabored, blood pressure 128/51 and a mean blood pressure 76 Oxygen saturation 94 on room air, her CBG 70 3 in the morning which is controlled diabetes mellitus and covered as well with the breakfast lunch and supper with insulin to scale. Patient has no evidence of hypoglycemia or symptoms of hypoglycemia. On exam patient is conscious alert oriented 3 she was eating her lunch. Head was normocephalic and atraumatic pupil was equal reactive conjunctiva was pink sclera was nonicteric extraocular muscle movement is intact Neck was supple no JVD no thyromegaly no lymphadenopathy trachea midline Chest increased anteroposterior diameter with history of COPD however no wheezes no rhonchi's and she has normal breath sounds Heart regular sinus rhythm no dysrhythmia Abdomen soft nontender positive bowel sounds Extremities right ankle bimalleolar fracture status post open reduction internal fixation with the and screws on the right lower extremities On the left lower extremities no edema and positive pulses. Psychiatry stable Neurologically stable Assessment: And plan and recommendation #1 status post open reduction internal fixation of the right ankle with the screw #2 COPD with no acute exacerbation stable #3 hypertension is controlled Diabetes mellitus controlled. Assessment: #1 from medical point of view patient stable for discharge to senior living with the stable diabetes and hypertension. #2 she had an umbilical hernia not obstructing and she will be seeking farther surgical intervention as outpatient. #3 chronic constipation resistant currently she had a bowel movement and she is comfortable advised the patient when she feels better after the healing need a colonoscopy done. #4 continue medication for hypertension #5 pain medication per orthopedic. #6 she will be following with Dr. Shah the blow torch operator and Dr. Dunbar on the August 11 from the senior living to the orthopedic clinic. #7 patient stated that she got go to medical [facility] and she will be followed by myself in the senior living. #8 she will continue the current medication in the hospital at the senior living. Objective - Vital Signs Vital signs: Vital Signs Temp 98.4 F 08/08/23 14:00 Pulse 91 08/08/23 14:00 Resp 17 08/08/23 14:00 BP 128/51 08/08/23 14:00 Pulse Ox 94 L 08/08/23 14:00 FiO2 Intake & Output 08/07/23 08/08/23 08/08/23 18:59 06:59 18:59 Intake Total 240 540 240 Balance 240 540 240 Weight 97.976 kg Intake: Oral 240 540 240 Other: Voiding Method Bedside Commode Bedside Commode Bedside Commode # Voids 2 1 - Labs CBC & Chem 7: 08/02/23 16:35 08/02/23 16:35 Labs: Abnormal Lab Results - Last 24 Hours (Table) 08/07/23 08/07/23 Range/Units 17:17 20:31 POC Glucose (mg/dL) 124 H 170 H (70-110) mg/dL
[2023-08-08 17:27] LABS: Glucose,Whole Blood 78 mg/dL (70-110)
[2023-08-08] MEDS: ONDANSETRON 4 MG/2 ML VIAL IVP PRN (18:26)
[2023-08-08 20:43] LABS: Glucose,Whole Blood 86 mg/dL (70-110)
[2023-08-09 06:59] LABS: Glucose,Whole Blood 82 mg/dL (70-110)
[2023-08-09 11:57] LABS: Glucose,Whole Blood 88 mg/dL (70-110)
--- NOTE | 2023-08-09 13:54 | P.PN ---
Subjective Progress Note Date: 08/09/23 Progress note Date of service 08/09/[address] Williamson Patient seen [id number] today evaluated Patient under care orthopedic surgeon Patient did not have yet authorization to go to a [facility] for continued rehab. Patient seen [id number] discussed with the patient Temperature 97.9 F oral, pulse rate 77 respiratory rate 18/min regular nonlabored and blood pressure 128/71. Saturation 92% on room air Patient comfortable does not have no shortness of breath. Patient is diabetic however the blood sugar is very good control and ranging between 88, 82, 86 with the current treatment and also she had insulin to scale if there is hyperglycemia present. No specific complaint except to the right ankle open reduction internal fixation and the pain is tolerable to her treated with pain medications by the orthopedic surgeon Patient waiting for [facility] placement for rehabilitation after obtaining the authorization. On exam HEENT negative Oropharynx natural teeth able to eat and swallow Neck was supple no JVD no thyromegaly no lymphadenopathy Chest COPD with normal breath sounds no exacerbation Heart regular sinus rhythm no dysrhythmia Abdomen obese positive bowel sounds and luckily she had now regular BM with the current program Extremities right ankle bimalleolar fracture with open reduction internal fixation and screw placement. Psychiatry stable Neurologically stable Assessment patient continues to be stable waiting for the [facility] placement for rehabilitation Objective - Vital Signs Vital signs: Vital Signs Temp 97.9 F 08/09/23 11:53 Pulse 77 08/09/23 11:53 Resp 18 08/09/23 11:53 BP 128/71 08/09/23 11:53 Pulse Ox 92 L 08/09/23 11:53 FiO2 Intake & Output 08/08/23 08/09/23 08/09/23 18:59 06:59 18:59 Intake Total 1080 Balance 1080 Weight 97.976 kg Intake: Oral 1080 Other: Voiding Method Bedside Commode Bedside Commode Bedpan Diaper Diaper # Voids 3 1 1 # Bowel Movements 1 - Labs CBC & Chem 7: 08/02/23 16:35 08/02/23 16:35
[2023-08-09 17:11] LABS: Glucose,Whole Blood 75 mg/dL (70-110)
[2023-08-09 20:51] LABS: Glucose,Whole Blood 97 mg/dL (70-110)
[2023-08-10 07:18] LABS: Glucose,Whole Blood 102 mg/dL (70-110)
[2023-08-10 11:57] LABS: Glucose,Whole Blood 72 mg/dL (70-110)
[2023-08-10 13:14] VITALS: BP 116/64; PULSE 72; RESP 18; TEMP 98.1
== END 2023-08-10 14:18 ==
LOC: EC 15:34 → 4SSUR 18:18 → 5NMEDONC 20:31
PROVIDERS: ADMIT Orthopaedic Surgery; ATTEND Orthopaedic Surgery
DX: S82.841A Displaced bimalleolar fracture of right lower leg, initial encounter for closed fracture (principal); S93.431A Sprain of tibiofibular ligament of right ankle, initial encounter; W01.0XXA Fall on same level from slipping, tripping and stumbling without subsequent striking against object, initial encounter; G89.18 Other acute postprocedural pain; J44.9 Chronic obstructive pulmonary disease, unspecified; E11.22 Type 2 diabetes mellitus with diabetic chronic kidney disease; I12.9 Hypertensive chronic kidney disease with stage 1 through stage 4 chronic kidney disease, or unspecified chronic kidney disease; N18.30 Chronic kidney disease, stage 3 unspecified; G47.00 Insomnia, unspecified; R32 Unspecified urinary incontinence; E78.2 Mixed hyperlipidemia; K59.09 Other constipation; K42.9 Umbilical hernia without obstruction or gangrene; J39.2 Other diseases of pharynx; F31.9 Bipolar disorder, unspecified; F20.9 Schizophrenia, unspecified; Z87.891 Personal history of nicotine dependence; Z90.2 Acquired absence of lung [part of]; Z79.84 Long term (current) use of oral hypoglycemic drugs; Z79.899 Other long term (current) drug therapy; Z88.5 Allergy status to narcotic agent
CPT/HCPCS: 96376 ×3; 96361 ×3; 96365; 96366; 96372 ×2; 96375 ×2; 99284; 36415; 94640 ×15; 93005; 97116; 97530; 97162; 97535; 97166; 64447; 64445; 86900; 86901; 80053; 82330; 85025; 85610; 85730; 86850; 81001; 83970; 73600; 74019; 76705; 74150; 27814; 27829; G0378 ×10; C1713; J2250; J0330; J2270 ×5; J1100; J2710; J0690 ×2; J2405; J2001; J3010; J2795; J2704; J2371

== ENCOUNTER → 2023-11-17 | Outpatient (CLI) | payer MEDICARE, OTHER ==
--- NOTE | 2023-11-20 19:35 | MM ---
Reason for Exam: Screening (asymptomatic). Last screening mammogram was performed 12 month(s) ago. Patient History: Menarche at age 13. First Full-Term at age 17. Left ovary removed at age 51. Right ovary removed at age 51. Hysterectomy at age 51. Postmenopausal. Risk Values: Janae 5 year model risk: 1.3%. NCI Lifetime model risk: 3.3%. Prior Study Comparison: 09/19/2020 Bilateral Screening Mammogram, [facility]. 11/13/2021 Bilateral MG 3D screening mammo w/cad, [facility]. 11/15/2022 Bilateral MG 3D screening mammo w/cad, [facility]. Tissue Density: There are scattered areas of fibroglandular density. Findings: Analyzed By CAD. Chronic nodularity on the left. There is no suspicious group of microcalcifications or new suspicious mass in either breast. Overall Assessment: Benign, BI-RAD 2 Management: Screening Mammogram of both breasts in 1 year. . Patient should continue monthly self-breast exams. A clinical breast exam by your physician is recommended on an annual basis. This exam should not preclude additional follow-up of suspicious palpable abnormalities. Note on Janae scores and lifetime risk: 1. A Janae score greater than 3% is considered moderate risk. If this is the case, consider specialist referral to assess eligibility for a risk reducing agent. 2. If overall lifetime risk for the development of breast cancer is 20% or higher, the patient may qualify for future screening with alternating mammogram and breast MRI. Electronically signed and approved by: Alfie Pang M.D. Radiologist
== END | disposition home or self-care (01) ==
LOC: RADMAMWWP 12:57
PROVIDERS: ATTEND Internal Medicine
DX: Z12.31 Encounter for screening mammogram for malignant neoplasm of breast (principal); Z78.0 Asymptomatic menopausal state
CPT/HCPCS: 77063; 77067

== ENCOUNTER → 2024-01-09 | Outpatient (CLI) | payer MEDICARE, OTHER ==
[2024-01-09 16:00] LABS: ALT 18 U/L (8-44); AST 27 U/L (13-35); BUN/Creat Ratio 17.56 Ratio (12.00-20.00); Blood Urea Nitrogen 15.8 mg/dL (9.0-27.0); Calcium 9.7 mg/dL (8.7-10.3); Carbon Dioxide 20.5 mmol/L (21.6-31.8); Chloride 106 mmol/L (96-109); Glucose 140 mg/dL (70-110); Potassium 5.1 mmol/L (3.5-5.5); Sodium 141 mmol/L (135-145)
== END | disposition home or self-care (01) ==
LOC: LABWHC1 09:34
PROVIDERS: ATTEND Internal Medicine
DX: I10 Essential (primary) hypertension (principal); E11.65 Type 2 diabetes mellitus with hyperglycemia
CPT/HCPCS: 36415; 80048; 83036; 84450; 84460

== ENCOUNTER → 2024-03-21 | Outpatient (CLI) | payer MEDICARE, OTHER ==
--- NOTE | 2024-03-21 21:30 | BD ---
EXAMINATION TYPE: Axial Bone Density DATE OF EXAM: 03/21/2024 CLINICAL HISTORY: 73 years old Female. ICD-10 CODE: Z78.0 Postmenopausal Height: 61.4 Weight: 212 FRAX RISK QUESTIONS: Glucocorticoids (More than 3mos): yes, for copd, aprox 45 yrs (Ex: prednisone, prednisolone, methylprednisolone, dexamethasone, and hydrocortisone). History of Fracture in Adulthood: yes 3. Menopause before 45: 50 RISK FACTORS HISTORY OF: rt ankle fracture with surgical repair 2023, metformin and another diabetic med, cannot recall the na me MEDICATIONS: bp meds, cholesterol, EXAM MEASUREMENTS: Bone mineral densitometry was performed using the [employer]. Bone mineral density as measured about the Lumbar spine is: ----- L1-L4(G/cm2): 1.327 T Score Values are as follows: ----- L1: 0.7 ----- L2: 1.1 ----- L3: 1.3 ----- L4: 1.5 ----- L1-L4: 1.2 Z Score Values are as follows: ----- L1: 1.4 ----- L2: 1.8 ----- L3: 2.0 ----- L4: 2.2 ----- L1-L4: 1.9 Bone mineral density has: Decreased -3.2% since study of: 08.04.2016 Bone mineral density about the R hip (g/cm2): 0.985 Bone mineral density about the L hip (g/cm2): 1.036 T Score values are as follows: -----R Neck: -1.0 -----L Neck: -1.7 -----R Total: -0.2 -----L Total: 0.2 Z Score values are as follows: -----R Neck: 0.1 -----L Neck: -0.5 -----R Total: 0.7 -----L Total: 1.1 Bone mineral density has: Decreased -2.2% since study of: 08.04.2016 FRAX%s: The graph provided illustrates a 29.8% chance for a major osteoporotic fx and a 6.6% chance f or the hips probability for fx in 10 years time. IMPRESSION: Osteopenia (T Score between -2.5 and -1). There is slightly increased risk of fracture and the patient may be considered for treatment. Re-Screen 2-5 years. NOTE: T-SCORE=SD OF THE YOUNG ADULT MEAN. [facility], , 03/21/2024 9:28 PM
== END | disposition home or self-care (01) ==
LOC: RADBDWWP 11:27
PROVIDERS: ATTEND Pediatrics
DX: Z78.0 Asymptomatic menopausal state
CPT/HCPCS: 77080

== ENCOUNTER → 2024-03-23 | Outpatient (CLI) | payer MEDICARE, OTHER ==
[2024-03-23 12:16] LABS: Creatinine,Urine Random 140.1 mg/dL; Protein/Creatinine Ratio,Urine 0.057
[2024-03-23 15:28] LABS: Appearance,Urine Clear (Clear); Bilirubin,Urine Negative (Negative); Blood,Urine Moderate (Negative); Color,Urine Yellow (Yellow); Ketones,Urine Negative (Negative); Nitrite,Urine Negative (Negative); Specific Gravity,Urine 1.019 (1.001-1.030)
[2024-03-23 16:04] LABS: Bacteria,Urine 3+ (None Seen)
[2024-03-23 20:00] LABS: Basophils # (A) 0.06 X 10*3/uL (0.00-0.10); Basophils % (A) 0.8 %; Eosinophils # (A) 0.25 X 10*3/uL (0.04-0.35); Eosinophils % (A) 3.2 %; HCT 46.6 % (37.2-46.3); HGB 14.4 g/dL (12.0-15.0); Lymphocytes # (A) 1.71 X 10*3/uL (0.90-5.00); Lymphocytes % (A) 21.9 %; MCH 29.1 pg (27.0-32.0); MCHC 30.9 g/dL (32.0-37.0); MCV 94.1 FL (80.0-97.0); Monocytes # (A) 0.46 X 10*3/uL (0.20-1.00); Monocytes % (A) 5.9 %; NRBC Per 100 WBC 0 X 10*3/uL (0.00-0.01); Neutrophils # (A) 5.31 X 10*3/uL (1.80-7.70); Neutrophils % (A) 67.8 %; Platelet Count 240 X 10*3/uL (140-440); RBC 4.95 X 10*6/uL (4.10-5.20); RDW 14.4 % (11.5-14.5); WBC 7.82 X 10*3/uL (4.50-10.00)
[2024-03-23 20:13] LABS: Microalbumin Creatinine Ratio <9 mg/g Cr (0-30)
[2024-03-23 20:24] LABS: % Iron Saturation 20.68 (12.00-45.00); ALT 21 U/L (8-44); AST 18 U/L (13-35); Albumin 4.1 g/dL (3.8-4.9); Albumin/Globulin Ratio 1.32 Ratio (1.60-3.17); Alkaline Phosphatase 96 U/L (41-126); BUN/Creat Ratio 17.11 Ratio (12.00-20.00); Blood Urea Nitrogen 15.4 mg/dL (9.0-27.0); Calcium 9.6 mg/dL (8.7-10.3); Carbon Dioxide 25.4 mmol/L (21.6-31.8); Chloride 106 mmol/L (96-109); Chol/HDL Ratio 4.23 Ratio; Creatine Kinase 53 U/L (26-186); Ferritin 93.5 ng/mL (10.0-291.0); Globulin 3.1 g/dL (1.6-3.3); Glucose 156 mg/dL (70-110); Iron 73 UG/DL (50-170); LDL Cholesterol,Calculated 96.3 mg/dL (0.0-131.0); Phosphorus 4.7 mg/dL (2.4-5.1); Potassium 4.8 mmol/L (3.5-5.5); Sodium 143 mmol/L (135-145); Total Bilirubin 0.3 mg/dL (0.3-1.2); Total Iron Binding Capacity 353 UG/DL (228-460); Total Protein 7.2 g/dL (6.2-8.2); VLDL Calculation 19.04 mg/dL (5.00-40.00)
[2024-03-23 20:47] LABS: INR 0.98 sec (0.93-1.11); Prothrombin Time 10.6 sec (9.9-11.9)
[2024-03-23 20:55] LABS: Erythrocyte Sedimentation Rate 32 mm/Hr (0-30)
== END | disposition home or self-care (01) ==
LOC: LABWHC1 10:57
PROVIDERS: ATTEND Internal Medicine
DX: E11.22 Type 2 diabetes mellitus with diabetic chronic kidney disease (principal); I12.9 Hypertensive chronic kidney disease with stage 1 through stage 4 chronic kidney disease, or unspecified chronic kidney disease; N18.2 Chronic kidney disease, stage 2 (mild); D63.1 Anemia in chronic kidney disease; E11.65 Type 2 diabetes mellitus with hyperglycemia; E55.9 Vitamin D deficiency, unspecified; J44.9 Chronic obstructive pulmonary disease, unspecified; E87.8 Other disorders of electrolyte and fluid balance, not elsewhere classified; M10.9 Gout, unspecified; E78.5 Hyperlipidemia, unspecified; E03.9 Hypothyroidism, unspecified; R80.9 Proteinuria, unspecified
CPT/HCPCS: 36415; 80053; 80061; 81001; 82043; 82306; 82550; 82570; 82728; 83036; 83540; 83550; 83735; 84100; 84156; 84443; 84550; 85025; 85610; 85652; 86140

== ENCOUNTER → 2024-07-31 | Outpatient (CLI) | payer MEDICARE, OTHER ==
--- NOTE | 2024-07-31 13:03 | XR ---
EXAMINATION TYPE: XR chest 2V DATE OF EXAM: 07/31/2024 12:20 PM COMPARISON: 06/07/2022 CLINICAL INDICATION: Female, 73 years old with history of J12.9 ACUTE UPPER RESPIRATORY INFECTION, UN SPECIFIED J06.9, , TECHNIQUE: Frontal and lateral views FINDINGS: Heart upper limits of normal in size. Hyperinflation. Interstitial density is noted bilaterally. A fe w scattered surgical clips mid and lower medial hemithorax. Some patchy right basilar opacity is unch anged from 2021. Curvilinear air density at the right base also unchanged in configuration from 2021 suggesting chronic scarring. No pleural effusion. IMPRESSION: Postsurgical change right hemithorax with some chronic-appearing pleural parenchymal scarring at the right base. Additional interstitial densities could reflect bronchitis or asthma. [facility], , 07/31/2024 1:01 PM
[2024-07-31 15:19] LABS: Basophils # (A) 0.04 X 10*3/uL (0.00-0.10); Basophils % (A) 0.5 %; Eosinophils # (A) 0.13 X 10*3/uL (0.04-0.35); Eosinophils % (A) 1.7 %; HCT 45.9 % (37.2-46.3); HGB 14.5 g/dL (12.0-15.0); Lymphocytes # (A) 2.24 X 10*3/uL (0.90-5.00); MCH 28.3 pg (27.0-32.0); MCHC 31.6 g/dL (32.0-37.0); MCV 89.5 FL (80.0-97.0); Mean Platelet Volume 9.2 FL (9.5-12.2); Monocytes # (A) 0.38 X 10*3/uL (0.20-1.00); Monocytes % (A) 5.1 %; NRBC Per 100 WBC 0 X 10*3/uL (0.00-0.01); Neutrophils # (A) 4.65 X 10*3/uL (1.80-7.70); Neutrophils % (A) 62.4 %; Platelet Count 259 X 10*3/uL (140-440); RBC 5.13 X 10*6/uL (4.10-5.20); RDW 13.3 % (11.5-14.5); WBC 7.46 X 10*3/uL (4.50-10.00)
[2024-07-31 17:03] LABS: BUN/Creat Ratio 18.25 Ratio (12.00-20.00); Blood Urea Nitrogen 14.6 mg/dL (9.0-27.0); Calcium 9.1 mg/dL (8.7-10.3); Carbon Dioxide 25.5 mmol/L (21.6-31.8); Chloride 102 mmol/L (96-109); Glucose 176 mg/dL (70-110); Potassium 4.4 mmol/L (3.5-5.5); Sodium 140 mmol/L (135-145)
== END | disposition home or self-care (01) ==
LOC: LABWHC1 11:53
PROVIDERS: ATTEND Internal Medicine
DX: J12.9 Viral pneumonia, unspecified (principal); J06.9 Acute upper respiratory infection, unspecified; J47.9 Bronchiectasis, uncomplicated
CPT/HCPCS: 36415; 71046; 80048; 85025

== ENCOUNTER → 2024-08-01 | Outpatient (CLI) | payer MEDICARE, OTHER | END | disposition home or self-care (01) | LOC: LABWHC1 10:49 | PROVIDERS: ATTEND Internal Medicine | DX: J06.9 Acute upper respiratory infection, unspecified (principal); J12.9 Viral pneumonia, unspecified; J47.9 Bronchiectasis, uncomplicated | CPT/HCPCS: 87502 ==

== ENCOUNTER → 2025-01-03 | Outpatient (CLI) | payer MEDICARE, OTHER ==
[2025-01-03 11:57] LABS: Basophils # (A) 0.06 X 10*3/uL (0.00-0.10); Basophils % (A) 0.8 %; Eosinophils # (A) 0.18 X 10*3/uL (0.04-0.35); Eosinophils % (A) 2.3 %; HCT 46.0 % (37.2-46.3); HGB 14.3 g/dL (12.0-15.0); Immature Grans, Automated 0.30 %; Lymphocytes # (A) 2.02 X 10*3/uL (0.90-5.00); Lymphocytes % (A) 25.6 %; MCH 28.8 pg (27.0-32.0); MCHC 31.1 g/dL (32.0-37.0); MCV 92.7 FL (80.0-97.0); Monocytes # (A) 0.65 X 10*3/uL (0.20-1.00); Monocytes % (A) 8.2 %; NRBC Per 100 WBC 0 X 10*3/uL (0.00-0.01); Neutrophils # (A) 4.95 X 10*3/uL (1.80-7.70); Neutrophils % (A) 62.8 %; Platelet Count 261 X 10*3/uL (140-440); RBC 4.96 X 10*6/uL (4.10-5.20); RDW 14.0 % (11.5-14.5); WBC 7.88 X 10*3/uL (4.50-10.00)
[2025-01-03 15:59] LABS: ALT 31 U/L (8-44); AST 24 U/L (13-35); Albumin 4.0 g/dL (3.8-4.9); Albumin/Globulin Ratio 1.43 Ratio (1.60-3.17); Alkaline Phosphatase 82 U/L (41-126); Anion Gap 12.20 mmol/L (4.00-12.00); BUN/Creat Ratio 23.50 Ratio (12.00-20.00); Blood Urea Nitrogen 18.8 mg/dL (9.0-27.0); Calcium 9.0 mg/dL (8.7-10.3); Carbon Dioxide 25.8 mmol/L (21.6-31.8); Chloride 106 mmol/L (96-109); Cholesterol 173.00 mg/dL (0.00-200.00); Globulin 2.8 g/dL (1.6-3.3); Glucose 151 mg/dL (70-110); HDL Cholesterol 34.70 mg/dL (40.00-60.00); LDL Cholesterol,Calculated 107.3 mg/dL (0.0-131.0); Magnesium 2.0 mg/dL (1.5-2.4); Potassium 4.4 mmol/L (3.5-5.5); Sodium 144 mmol/L (135-145); Total Protein 6.8 g/dL (6.2-8.2); Triglycerides 155.00 mg/dL (0.00-149.00); VLDL Calculation 31.00 mg/dL (5.00-40.00)
== END | disposition home or self-care (01) ==
LOC: LABWHC1 09:40
PROVIDERS: ATTEND Internal Medicine
DX: Z00.00 Encounter for general adult medical examination without abnormal findings (principal)
CPT/HCPCS: 36415; 80053; 80061; 82043; 82570; 83036; 83735; 84100; 85025; 87086